=== PATIENT | female | born 1965 | race Caucasian/White ===

== ENCOUNTER → 2018-10-04 07:29 | Outpatient (CLI) | payer OTHER, SELFPAY ==
[2018-10-04 08:18] LABS: Absolute Lymphocyte Count 1.72 X10^3/ul (0.83-4.51); Absolute Neutrophil Count 3.2 X10^3/uL (2.0-7.7); Basophil# 0.09 X10^3/uL; Basophil% 1.6 % (0-1); Eosinophil# 0.23 X10^3/uL; Hematocrit 43.2 % (37-47); Hemoglobin 14.5 g/dl (12.0-15.0); Lymphocyte # 1.72 X10^3/ul (4.0); Lymphocyte % 30.3 % (19-41); Mean Corp Hgb Conc 33.6 g/gl (32-36); Mean Corpuscular Hgb 29.9 pg (27.0-32.0); Mean Corpuscular Volume 89.1 fL (81-99); Mean Platelet Vol. 9.6 fl (6.2-12.0); Monocyte# 0.43 X10^3/uL; Monocyte% 7.6 % (0-10); Neutrophil # 3.19 X10^3/uL (2.7-7.7); Neutrophil % 56.1 % (47-70); Platelet Count 330 K/mm3 (150-450); RBC Distribution Width CV 13.1 % (11.6-14.6); Red Blood Count 4.85 M/mm3 (4.2-5.4); White Blood Count 5.7 K/mm3 (4.4-11.0)
[2018-10-04 08:19] LABS: POSITIVE COUNT NO; POSITIVE DIFFERENTIAL NO; POSITIVE MORPHOLOGY NO
[2018-10-04 08:48] LABS: ALB/GLOB Ratio 0.9 RATIO (0.9-2.4); AST(SGOT) 28 U/L (15-37); Alanine Aminotransfer ALT/SGPT 54 U/L (13-56); Albumin, Serum 3.6 g/dL (3.2-5.0); Alkaline Phosphatase 143 U/L (45-117); Anion Gap 9 (5-15); BUN 15 mg/dL (7-18); BUN/Creat Ratio 19.4 RATIO (10-20); Calcium,Total 9.1 mg/dL (8.5-10.1); Chloride 106 mmol/L (98-107); Cholesterol 258 mg/dL (200); Creatinine, Serum 0.77 mg/dL (0.55-1.02); EST Glomerular Filtration Rate 84 mL/min (>60); Est Glom Filt Rate - Afr Amer 101 mL/min (>60); Globulin 4.1 g/dL (2.2-4.2); Glucose 85 mg/dL (74-106); High Density Lipoprotein 64 mg/dL; Potassium 4.1 mmol/L (3.5-5.1); Protein, Total 7.7 g/dL (6.4-8.2); Sodium Level 140 mmol/L (136-145); Triglycerides 98 mg/dL; Very Low Density Lipoprotein 20 mg/dL (5-40)
== END ==
PROVIDERS: Family Provider Family Medicine; PCP Family Medicine; Referring Provider Family Medicine; Visit Provider Family Medicine
DX: E78.5 Hyperlipidemia, unspecified (principal); Z51.81 Encounter for therapeutic drug level monitoring; R53.83 Other fatigue
CPT/HCPCS: 36415; 80053; 80061; 85025

== ENCOUNTER → 2018-10-16 07:34 | Outpatient (CLI) | payer OTHER, SELFPAY ==
--- NOTE | 2018-10-16 07:38 | BI_ITS ---
MAMMOGRAPHY - BILATERAL SCREENING REASON FOR EXAM: Female, 53 years old. Routine annual screening examination. PERTINENT HISTORY: Aunt with breast cancer. TECHNIQUE: Digital bilateral breast mya (3D mammographic acquisition) in the CC and MLO projections. 2-D mediolateral oblique (MLO) and craniocaudad (CC) views of both breasts were obtained. CAD: Full Field Digital Mammography with Computer Added Detection was performed. COMPARISON: Comparison is made with prior study dated August 25, 2016 and June 29, 2015. FINDINGS: Breast Composition: The breasts are heterogeneously dense, which may obscure small masses. There are no dominant masses or suspicious calcifications. No other significant abnormalities are identified. There has been no significant change since the prior study. BI/SCREENING MAMM (CAD), BILAT IMPRESSION: Stable bilateral screening mammogram. Yearly follow-up mammogram recommended. (A) ASSESSMENT CATEGORY: BIRADS Category 1: Negative. A letter regarding these results will be sent to the patient by the facility within 30 days. Approximately 10% of breast cancers are not detected by mammography. A normal mammogram should not delay biopsy of a clinically suspicious abnormality. [id number] Electronically Signed: Hany Kaur MD at 8:52 EST Tel [phone], Service support ,
--- OUTSIDE RECORDS SUMMARY | 2019-01-17 12:33 | XMS RPT_ITS ---
:1965 Author Organization [facility] Care Team Providers Name Role Phone Patsy Dinh Attending Unavailable Malys, Patsy Primary Care Unavailable Malys, Patsy Attending Unavailable Malys, Patsy Referring Unavailable Malys, Patsy Primary Care Unavailable PROBLEMS PROBLEMS DATE TYPE CONDITION / CODE ATTENDING STATUS SOURCE 10/04/2018 Unknown E78.5 - Malys, Patsy Active [facility] unspecified / Hospital E78.5(ICD-10) Repository 10/04/2018 Unknown Z51.81 - Malys, Patsy Active [facility] Encounter for Community therapeutic drug Hospital level monitoring Repository / Z51.81(ICD-10) 10/04/2018 Unknown R53.83 - Other Malys, Patsy Active [facility] R53.83(ICD-10) Hospital Repository PROCEDURES PROCEDURES No Procedure Records FoundRESULTS RESULTS SCREENING MAMM (CAD), Observed: 10/16/2018 Status: F Source: L[facility] BILAT 7:38 AM [facility] REPOSITORY [facility] Imaging Services [address] [place] [address] SCREENING MAMM (CAD), BILAT MR#: [id number] Acct: [id number] Name: MEKA CAMPOS Rep #: [id number] : 1965 F 53 From: Hany Kaur MD PCP: Patsy Dinh DO Status: REG CLI Study: SCREENING MAMM (CAD), BILAT Date of Exam: 10/16/18 Exam# [id number] Ordering Dr: Patsy Dinh DO MAMMOGRAPHY - BILATERAL SCREENING REASON FOR EXAM: Female, 53 years old. Routine annual screening examination. PERTINENT HISTORY: Aunt with breast cancer. TECHNIQUE: Digital bilateral breast mya (3D mammographic acquisition) in the CC and MLO projections. 2-D mediolateral oblique (MLO) and craniocaudad (CC) views of both breasts were obtained. CAD: Full Field Digital Mammography with Computer Added Detection was performed. COMPARISON: Comparison is made with prior study dated August 25, 2016 and June 29, 2015. FINDINGS: Breast Composition: The breasts are heterogeneously dense, which may obscure small masses. There are no dominant masses or suspicious calcifications. No other significant abnormalities are identified. There has been no significant change since the prior study. BI/SCREENING MAMM (CAD), BILAT IMPRESSION: Stable bilateral screening mammogram. Yearly follow-up mammogram recommended. (A) ASSESSMENT CATEGORY: BIRADS Category 1: Negative. A letter regarding these results will be sent to the patient by the facility within 30 days. Approximately 10% of breast cancers are not detected by mammography. A normal mammogram should not delay biopsy of a clinically suspicious abnormality. [id number] Electronically Signed: Hany Kaur MD at 8:52 EST Tel [phone], Service support , CC: Patsy Dinh DO New Accounts Clerk: Signed CBC W/DIFF, AUTOMATED Collected: 10/04/2018 Status: F Source: LINK 7:33 AM [facility] REPOSITORY TYPE CODE TESTS RESULT OUT OF RANGE REFERENCE UNITS LAB L100.1000 4.4-11.0 K/mm3 Normal WBC 5.7 LAB L100.1200 4.2-5.4 M/mm3 Normal RBC 4.85 LAB L100.1300 12.0-15.0 g/dl Normal HGB 14.5 LAB L100.1400 37-47 % Normal HCT 43.2 LAB L100.1500 81-99 fL Normal MCV 89.1 LAB L100.1600 27.0-32.0 pg Normal MCH 29.9 LAB L100.1700 32-36 g/gl Normal MCHC 33.6 LAB L100.1810 11.6-14.6 % Normal RDW CV 13.1 LAB L100.1820 35.1-43.9 fl Normal RDW SD 43.0 LAB L100.1900 150-450 K/mm3 Normal PLT 330 LAB L100.2000 6.2-12.0 fl Normal MPV 9.6 LAB L100.2100 47-70 % Normal NEUT% 56.1 LAB L100.2200 19-41 % Normal LY% 30.3 LAB L100.2300 0-10 % Normal MONO% 7.6 LAB L100.2400 0-5 % Normal EO% 4.0 LAB L100.2500 0-1 % High BASO% 1.6 LAB L100.2550 0.0-0.9 % Normal IM GRAN % 0.400 Result Comment: IG% - Immature Granulocytes (promyelocytes, myelocytes and metamyelocytes) > 1% indicates that a LEFT SHIFT is Present. LAB L100.2620 2.0-7.7 X10 3/uL Normal Absolute Neut 3.2 LAB L100.2720 0.83-4.51 X10 3/ul Normal Absolute Lymph 1.72 Performed By: #### L100.0100 #### [facility] [address] [place], [place], [address] COMPREHENSIVE METABOLIC Collected: 10/04/2018 Status: F Source: [facility] 7:33 AM [facility] REPOSITORY TYPE CODE TESTS RESULT OUT OF RANGE REFERENCE UNITS LAB L501.0100 74-106 mg/dL Normal GLU 85 Result Comment: Please note revised GLUCOSE reference range effective 2017. LAB L501.1000 7-18 mg/dL Normal BUN 15 LAB L501.1100 0.55-1.02 mg/dL Normal CREAT,SERUM 0.77 Result Comment: The validity of the calculated GFR AND GFRAA in patients over 70 years has not been determined. Clinical correlation is essential. LAB L501.1110 >60 mL/min Normal EST GFR 84 Result Comment: Non- GFR Calc LAB L501.1115 >60 mL/min Normal EST GFR - AA 101 Result Comment: GFR Calc LAB L501.1300 10-20 RATIO Normal BUN/CRE 19.4 LAB L501.1500 6.4-8.2 g/dL T Normal PROT 7.7 LAB L501.1800 3.2-5.0 g/dL Normal ALB 3.6 LAB L501.1950 2.2-4.2 g/dL Normal GLOB 4.1 LAB L501.2000 0.9-2.4 RATIO Normal A/G 0.9 LAB L501.2200 8.5-10.1 mg/dL CA Normal 9.1 LAB L501.4100 15-37 U/L Normal AST 28 LAB L501.4305 45-117 U/L High ALK P 143 LAB L501.4405 13-56 U/L Normal ALT 54 LAB L501.4600 0.20-1.00 mg/dL T Normal BILI 0.40 LAB L501.5300 136-145 mmol/L NA Normal 140 LAB L501.5600 3.5-5.1 mmol/L K Normal 4.1 LAB L501.5900 98-107 mmol/L CL Normal 106 LAB L501.6100 21.0-32.0 mmol/L Normal CO2 25.0 LAB L501.6200 5-15 Normal GAP 9 Performed By: #### L500.4050, L500.4100 #### [facility] [address] [place], [place], [address] LIPID PROFILE Collected: 10/04/2018 Status: F Source: [place] 7:33 AM [facility] REPOSITORY TYPE CODE TESTS RESULT OUT OF RANGE REFERENCE UNITS LAB L501.4900 200 mg/dL High CHOL 258 Result Comment: <200 mg/dL Desirable 200-240 mg/dL Borderline >240 mg/dL High Risk LAB L501.5000 mg/dL Normal TRIG 98 Result Comment: The drugs N-Acetylcysteine and Metamizole may falsely depress this assay. Serum Triglycerides Reference Interval Normal <150 mg/dL Borderline high 150 - 199 mg/dL High 200 - 499 mg/dL Very High > or = 500 mg/dL LAB L501.6400 mg/dL Normal HDL 64 Result Comment: The drugs N-Acetylcysteine and Metamizole may falsely depress this assay. Reference Range HDL <40 mg/dL Low HDL Cholesterol HDL >or= 60 mg/dL High HDL Cholesterol LAB L501.6500 0-130 mg/dL High LDL 174 LAB L501.6600 5-40 mg/dL Normal VLDL 20 Performed By: #### L500.4050, L500.4100 #### [facility] [address] [place], [address] ALLERGIES ALLERGIES No Allergies Records FoundENCOUNTERS ENCOUNTERS ADMIT/DISCHARGE ACCOUNT ADMITTING ENCOUNTER LOCATION SOURCE NUMBER CLASS 10/16/2018 [id number] [facility] 8 [facility] ing:OPBI Repository 10/04/2018 [id number] [facility] 0 [facility] ing:LAB Repository PAYERS PAYERS ENCOUNTER GUARANTOR PAYER SUBSCRIBER SOURCE 10/16/2018 MEKA Inman Primary Insurance:[facility] MEKA Inman Link [id number] [facility] [address] [id number] [address]Tcg: Number: Repository [id number] (HP) Date:3716-08-10[address] [address], [place] [address]QF: CHECK WEBSITE 10/16/2018 [facility]:SELF PAY [facility] Number: Effective Repository Date:2018-10-04 10/04/2018 MEKA Inman Primary Insurance:[facility] MEKA Inman Link [id number] [facility]: [address] [id number] [address]Cti: Number: Repository [id number] (HP) Date:[id number] [address], [place] [address]YQ: CHECK WEBSITE 10/04/2018 Secondary NOT GIVENUNK Link Insurance:SELF PAY [facility] Number: Effective Repository Date:2018-10-04
== END ==
PROVIDERS: Family Provider Family Medicine; PCP Family Medicine; Visit Provider Family Medicine
DX: Z12.31 Encounter for screening mammogram for malignant neoplasm of breast (principal)
CPT/HCPCS: 77063; 77067

== ENCOUNTER → 2022-07-08 | Outpatient (CLI) | payer OTHER, SELFPAY ==
[2022-07-08 10:40] LABS: Hematocrit 44.2 % (37-47); Hemoglobin 14.4 g/dL (12.0-15.0); Mean Corp Hgb Conc 32.6 g/dL (32-36); Mean Corpuscular Hgb 29.3 pg (27.0-32.0); Mean Platelet Vol. 9.4 fl (6.2-12.0); Platelet Count 335 K/mm3 (150-450); RBC Distribution Width CV 13.1 % (11.6-14.6); RBC Distribution Width SD 43.2 fl (35.1-43.9); Red Blood Count 4.91 M/mm3 (4.2-5.4); White Blood Count 5.5 K/mm3 (4.4-11.0)
[2022-07-08 11:02] LABS: ALB/GLOB Ratio 0.8 RATIO (0.9-2.4); AST(SGOT) 24 U/L (15-37); Alanine Aminotransfer ALT/SGPT 43 U/L (13-56); Albumin, Serum 3.7 g/dL (3.2-5.0); Alkaline Phosphatase 147 U/L (45-117); Anion Gap 9 (5-15); BUN 23 mg/dL (7-18); BUN/Creat Ratio 25.2 RATIO (10-20); Calcium,Total 9.7 mg/dL (8.5-10.1); Chloride 106 mmol/L (98-107); Creatinine, Serum 0.91 mg/dL (0.55-1.02); EST Glomerular Filtration Rate 68 mL/min (>60); Est Glom Filt Rate - Afr Amer 82 mL/min (>60); GGTP 149 U/L (5-55); Globulin 4.6 g/dL (2.2-4.2); Glucose 93 mg/dL (74-106); Potassium 4.2 mmol/L (3.5-5.1); Protein, Total 8.3 g/dL (6.4-8.2); Sodium Level 140 mmol/L (136-145)
== END | disposition home or self-care (01) ==
LOC: MTLAB 08:25
PROVIDERS: PCP Family Medicine; Referring Provider Family Medicine; Visit Provider Family Medicine
DX: M85.80 Other specified disorders of bone density and structure, unspecified site (principal); E78.5 Hyperlipidemia, unspecified; Z78.0 Asymptomatic menopausal state
CPT/HCPCS: 36415; 80053; 82977; 85027

== ENCOUNTER → 2022-08-18 | Outpatient (CLI) | payer OTHER, SELFPAY ==
--- NOTE | 2022-08-18 07:50 | CT_ITS ---
STUDY: CT ABDOMEN WITH CONTRAST REASON FOR EXAM: Female, 57 years old. Elevated LFTs RADIATION DOSAGE (If Supplied By Facility): CTDIvol = ( 13.97 ) mGy, DLP = ( 615.3 ) mGycm TECHNIQUE: Transaxial images were obtained post I.V. administration of Oral and amp; IV Readi-CAT and amp; 100mL Isovue-370, and with oral contrast. Sagittal and coronal images were reconstructed. Individualized dose optimization techniques were used for this CT. COMPARISON: None. FINDINGS: The visualized lung bases are unremarkable. The visualized portions of the heart are within normal limits. Liver is unremarkable aside from a simple 1 cm cyst in the right lobe. Normal gallbladder and extrahepatic biliary system. Normal spleen. Normal pancreas. Normal bilateral adrenal glands. Normal right kidney. Normal left kidney. Normal visualized stomach. Normal small intestine. Normal colon. The appendix is visualized and appears normal. Appendix seen on axial images 72 through 76 Normal abdominal aorta. Normal inferior vena cava. Normal retroperitoneum. Normal abdominal wall. Degenerative changes noted at L5/S1. CT/Abdomen WITH IV Contrast IMPRESSION: No suspicious solid organ abnormality, simple 1 cm hepatic cyst, no specific follow-up needed. No free intraperitoneal fluid, air, or suspicious adenopathy, normal appendix visualized Electronically Signed: Kurtis Baugh MD at 8:41 EDT ,
== END | disposition home or self-care (01) ==
LOC: CT 07:49
PROVIDERS: PCP Internal Medicine; Referring Provider Internal Medicine; Visit Provider Internal Medicine
DX: R74.8 Abnormal levels of other serum enzymes (principal)
CPT/HCPCS: 74160; Q9967

== ENCOUNTER → 2023-06-22 | Outpatient (CLI) | payer OTHER, SELFPAY ==
--- NOTE | 2023-06-22 12:25 | BI_ITS ---
MAMMOGRAPHY - BILATERAL SCREENING REASON FOR EXAM: Female, 57 years old. Routine annual screening examination. PERTINENT HISTORY: Aunts with breast cancer. No reported personal history of breast cancer. TECHNIQUE: Digital bilateral breast castillo (3D mammographic acquisition) in the CC and MLO projections. 2-D mediolateral oblique (MLO) and craniocaudad (CC) views of both breasts were obtained. CAD: Full Field Digital Mammography with Computer Added Detection was performed. COMPARISON: Screening mammogram from outside hospital from 11/26/2021, 11/25/2020. FINDINGS: Breast Composition: The breasts are heterogeneously dense, which may obscure small masses. There are no dominant masses or suspicious calcifications. No other significant abnormalities are identified. There has been no significant change since the prior study. BI/SCRN MAMM (CAD)W/CASTILLO BILAT IMPRESSION: Stable bilateral screening mammogram. Yearly follow-up mammogram recommended. (A) ASSESSMENT CATEGORY: BIRADS Category 1: Negative. A letter regarding these results will be sent to the patient by the facility within 30 days. Approximately 10% of breast cancers are not detected by mammography. A normal mammogram should not delay biopsy of a clinically suspicious abnormality. Electronically Signed: Aftab Harris DO at 15:52 EDT ,
== END | disposition home or self-care (01) ==
LOC: OPBI 12:23
PROVIDERS: PCP Internal Medicine; Referring Provider Internal Medicine; Visit Provider Internal Medicine
DX: Z12.31 Encounter for screening mammogram for malignant neoplasm of breast (principal)
CPT/HCPCS: 77063; 77067

== ENCOUNTER → 2023-07-31 | Outpatient (CLI) | payer OTHER, SELFPAY ==
--- NOTE | 2023-07-31 10:21 | RAD_ITS ---
STUDY: X-RAY - RIGHT KNEE REASON FOR EXAM: Female, 57 years old. Right knee pain and swelling. No known injury. TECHNIQUE: 4 view(s) of the knee. COMPARISON: None. FINDINGS: Normal visualized distal femur. Normal visualized proximal tibia and fibula. Normal proximal tibiofibular articulation. Normal medial femorotibial compartment. Normal lateral femorotibial compartment. Normal patellofemoral articulation. The soft tissue structures are unremarkable. RAD/Knee 4 or More Views IMPRESSION: Normal x-ray examination of the knee. Electronically Signed: Hany Kaur MD at 11:11 EDT ,
== END | disposition home or self-care (01) ==
LOC: MTRAD 10:20
PROVIDERS: PCP Internal Medicine; Referring Provider Physician Assistant; Visit Provider Physician Assistant
DX: M25.561 Pain in right knee (principal)
CPT/HCPCS: 73564

== ENCOUNTER → 2023-08-07 | Outpatient (CLI) | payer OTHER, SELFPAY ==
--- NOTE | 2023-08-07 10:49 | VDLE_ITS ---
Reason For Study: LEG SWELLING RIGHT LEFT GSV is normal. CFV is compressible, spontaneous, phasic, CFV is compressible, spontaneous, phasic, competent, and demonstrates normal competent and demonstrates normal augmentation. augmentation. FV is compressible, spontaneous, phasic, competent and demonstrates normal augmentation. POP V is compressible, spontaneous, phasic, competent and demonstrates normal augmentation. T/P Trunk is compressible. PTV is compressible. RT PerV is compressible. Procedure This is a venous duplex using B-mode, color flow and spectral Doppler. Exam performed in department. The exam was diagnostic. A preliminary report was called and/or faxed to Dr. Vargas's office. VL/Venous Duplex US, Unilateral Interpretation Summary Deep veins of the right lower extremity are patent and compressible segmentally . There is no evidence of right lower extremity deep vein thrombosis. The right great sapheno us vein appears patent and compressible segmentally. Ordering Physician: Berta Vargas Referring Physician: Berta Vargas Performed By: Derian Sawant, LELE
== END | disposition home or self-care (01) ==
LOC: CVS 10:45
PROVIDERS: PCP Internal Medicine; Referring Provider Internal Medicine; Visit Provider Internal Medicine
DX: M79.89 Other specified soft tissue disorders (principal)
CPT/HCPCS: 93971

== ENCOUNTER 2023-09-07 16:00 | Outpatient (RCR) | payer OTHER, SELFPAY ==
--- NOTE | 2023-08-14 13:01 | HP.PTEVAL ---
Patient's Visit Information Visit Information Visit Information: MEKA CAMPOS is a 57 year old F referred to Physical Therapy by Dr. Berta Vargas MD with a diagnosis of R Knee Pain. Date of Evaluation: 08/14/23 Physical Therapist: Hany Mcdonough, PT, ATC Visit Plan Frequency: 2-3x /Week Duration: 2-4 Weeks Plan: Nu-Step, LE Strengthening, LE Stretching, core-strengthening, [employer] edu., HEP Subjective Subjective: Pt. states that the swelling she has distal to the R knee (which stops mid R LE) started when she felt pulling in back of knee that started in June. The more she walks the worse it becomes. Pt. reports that her R knee cap hurts even worse when she ascends stairs. Pain is not keeping the pt. up at night; pain is really only bad when she ascends stairs or walks long distances. Pt. states that there is pain when she touches the medial and lateral joint line of her R knee. Pt. reports that X-rays have been taken and findings are non-finding; waiting on therapy first and then taking an MRI after. Pt. reports that an U/S has been conducted in order to rule out DVT/blood clot. Current sitting pain level is a 0-1/10, when walking/jogging/uneven ground the pain will rise to a 5/10. Pt. states that the pain is at it's worst when she extends her R knee; this is when she feels the pull in the back of her knee. There is no pain whenever she flexes her R knee. Pt. feels that this is altering her gait during ambulation. Pt. states her bedroom and bathroom is on man level of her home but her daughters bedroom is upstairs so she does have to navigate these. Pain Right Knee: Pain Intensity (Out of 10): 1 Pain Intensity Range: 5 Objective Objective: LEFS: 31/80 (61.25% disabled) Neuro: All B LE sensation in tact to light touch; R Achilles 2/3 Palpation: Pain felt in medial and lateral R knee joint line and popliteal area; Crepitus felt when ex/flex R knee ROM: - L Knee: 0 - 130 - R Knee: 0 - 5 - 120 (with pain in end range of both flex. and ext.) MMT: -L Knee Flex: 42 #F; Ext: 73 #F; -R Knee Flex: 40 #F; Ext: 44 #F (with pain felt in kneecap) Special Test: - R Knee Lin's test: Positive - R 90/90 Test: Positive - 40 deg lag from full extension - R Yumiko Test: Positive - - Apley Compression Test: Positive Balance/Special Test Scores Lower Extremity Functional Score: 31 Goals Goal 1:: Pt. to demonstrate an increase of 9 points on her LEFS in order to reflect a MCID in order to return to prior level of function. Goal Time Frame: 4-6 Weeks Goal 2:: Pt. to demonstrate a R knee ROM from 0 - 130 in order to be of equal ROM to her contralateral knee at time of testing in order to aid in pain free ambulation and pain free stair navigation. Goal Time Frame: 4-6 Weeks Goal 3:: Pt. to demonstrate an increase of 20 #F with R knee extension in order to be of equal strength to contralateral knee in order to return to prior level of function. Goal Time Frame: 4-6 Weeks Goal 4:: Pt. to become I with HEP to aid in independence of self care and rehabilitation outside of therapy hours to promote return to prior level of function. Goal Time Frame: 4-6 Weeks Rehabilitation Potential Physical Therapy Diagnosis: R Knee pain, swelling and weakness Rehabilitation Potential: Excellent Anticipated Interventions Patient/Client Instruction: Educate patient on: Condition and Plan of Care For the Purpose of:: To improve health and function Therapeutic Exercise to Include: Strength training, Endurance training, Body mechanics, Passive ROM and Active ROM For the Purpose of:: To decrease pain, To decrease swelling/inflammation, To increase ROM, To improve gait and locomotor functions, To improve self management and To prevent re-injury Cryotherapy (ice pack, ice massage): Yes For the Purpose of:: To decrease pain and To decrease swelling/inflammation Text: Thank you for the opportunity to evaluate your patient. For Medicare and Medicare HMO plans, please review the plan of care and approve it. It will need to be FAXED BACK to us at [phone] for Medicare purposes. For Medicare only, by signing this I certify the plan of care. Please let me know if there are questions or concerns regarding this plan of care. Physician Signature: Date:
--- NOTE | 2023-09-07 16:37 | HP.PTDCSUM_ITS ---
Discharge Summary D/C summary: It has been my pleasure to treat MEKA CAMPOS referred by Dr. Berta Vargas MD, with the diagnosis of R Knee Pain for a total of 5 visit(s). Discharge Date: Please see the following information for a summary of their discharge status. Subjective Subjective: I only have pain when I walk a lot Pain Right Knee: Pain Intensity (Out of 10): 0 Overall Improvement % Improvement: 70 Objective Objective/Function: R knee pain ranges from 0-3/10 Pt is I with HEP R knee ROM 0-2-131 degrees R knee MMT: flex= 42, ext= 61 #F Rx goals achieved Goals Goal 1:: Pt. to demonstrate an increase of 9 points on her LEFS in order to reflect a MCID in order to return to prior level of function. Goal Progress: Goal Met Goal 2:: Pt. to demonstrate a R knee ROM from 0 - 130 in order to be of equal ROM to her contralateral knee at time of testing in order to aid in pain free ambulation and pain free stair navigation. Goal Progress: Goal Met Goal 3:: Pt. to demonstrate an increase of 20 #F with R knee extension in order to be of equal strength to contralateral knee in order to return to prior level of function. Goal Progress: Goal Met Goal 4:: Pt. to become I with HEP to aid in independence of self care and rehabilitation outside of therapy hours to promote return to prior level of function. Goal Progress: Goal Met Plan Plan: [facility]charge to [facility] D/C Information d/c sentence: If there are questions or concerns regarding this patient's physical therapy, please feel free to call me at [phone]. Thank you for the referral of this patient. Sincerely, Hany Mcdonough, PT, ATC Balance/Gait/Functional tests Balance/Special Test Scores Lower Extremity Functional Score: 76 Improvement % Improvement: 70
== END 2023-09-07 19:00 | disposition home or self-care (01) ==
LOC: PT 16:00
PROVIDERS: PCP Internal Medicine; Referring Provider Internal Medicine; Visit Provider Internal Medicine
DX: M25.561 Pain in right knee (principal)
CPT/HCPCS: 97110; 97140; 97161; 97164

== ENCOUNTER → 2023-12-21 | Outpatient (CLI) | payer OTHER, SELFPAY ==
--- NOTE | 2023-12-21 07:42 | US_ITS ---
STUDY: ABDOMINAL ULTRASOUND - RIGHT UPPER QUADRANT; ELASTOGRAPHY REASON FOR VISIT: Female, 58 years old. Elevated liver function tests. TECHNIQUE: Ultrasound evaluation of the right upper quadrant was performed with real-time and static browning-scale imaging. Point quantification shear wave elastography was performed ([employer]). TECHNICAL QUALITY: Adequate. COMPARISON: None. FINDINGS: Liver: The liver measures 14 cm. There is normal echogenicity of the liver. The bile ducts are within normal limits. There is hepatic color flow. The direction of portal flow is hepatopetal. There is a 1.3 cm x 1.3 cm x 1.2 cm cyst in the right lobe of the liver. Median liver stiffness measured 3.6 kPa. Gallbladder: Normal distended gallbladder. The gallbladder wall measures 2 mm. There is a negative sonographic Barcenas''s sign. There is no pericholecystic fluid. There are no gallstones. Common Bile Duct (C.B.D.): The common bile duct measures 4 mm. Pancreas: There is normal echogenicity of the visualized pancreas. There is no demonstrated pancreatic mass or cyst. Right Kidney: Normal size of the right kidney. The right kidney measures 9.9 cm x 5.7 cm x 4.5 cm. Normal renal cortex. The right cortex measures 1.5 cm. There is no demonstrated renal mass or cyst. There is no right hydronephrosis. US/ABD Limited w/ Elastography IMPRESSION: 1. Liver stiffness measures 3.6 kPa compatible with FO (Normal) Metavir score. Electronically Signed: Hany Kaur MD at 10:36 EST ,
--- OUTSIDE RECORDS SUMMARY | 2023-12-21 07:55 | XMS RPT_ITS | CCD ---
Author Name Unknown Address [address] [place] [address] Organization [facility] Care Team Providers Care Honey Blender Name Role Phone Ravi Dey Unavailable Unavailable Stencel, Ravi Unavailable Unavailable Stencel, Ravi Unavailable Unavailable RobertoSolo Unavailable Unavailable WildervilleSolo Unavailable Unavailable Stencel, Ravi Hussein Unavailable Unavailable Unavailable Unavailable Unavailable Ravi Dey Unavailable Scar Dixon Unavailable Unavailable WildervilleLindatt Unavailable Dione Avendaño Unavailable Unavailable Scar Apodaca Unavailable [phone] [place], Dr. Scar Myles Primary Care Floyd ilgabino Vale, Ms. Diana Myles Attending Unavaila ble Roberto, Dr. Solo Newman Referring Unavailabl e Wilder[place], Dr. Solo Newman Attending Unavailabl e Stencel, Ravi Cheung Primary Care Unavailab le Stencel, Ravi Cheung Primary Care Unavailab le Stencel, Ravi Cheung Referring Unavailab le Stencel, Ravi Cheung Attending Unavailab le Bitner, Mr. Ravi Espinal Attending Unavaila ble Stencel, Ravi Cheung Primary Care Unavailab le Stencel, Ravi Cheung Primary Care Unavailab Dione Pablo Attending Unavailable Stencel, Ravi Cheung Primary Care Unavailab le ZackScar Attending Unavailab le Constanza, Dr. Scar Myles Primary Care Unava ilable Akanksha, Ms. Diana Myles Attending Unavaila ble Constanza, Dr. Scar Myles Referring Unava ilable Constanza, Dr. Scar Myles Primary Care Unava ilable Constanza, Dr. Scar Myles Referring Unava ilable Obleora, Dr. Scar Myles Attending Unava ilable Obleora, Dr. Scar Myles Attending Unava ilable Obleora, Dr. Scar Myles Primary Care Unava ilable Constanza, Dr. Scar Myles Referring Unava ilable KHANG BAJWA Attending Unavailable SCAR APODACA Primary Care Unavailable Ravi eDy MD Primary Care Provider RAVI DEY Primary Care Unavailable Berta Vargas MD Unavailable Dr. Apolinar Brewer Unavailable Sadie Ayala Unavailable [phone] Sadie Mcmahon MD Unavailable Stan Rush MD Unavailable Abbey Flores CMA Unavailable Unavailable Peggy Lopes MA Unavailable Unavailable Unavailable Unavailable Allergies Allergy Classification Reported Allergen(s) Allergy Type Date of Onset Reaction(s) Facility (19 sources) Sulfamethoxazole / Trimethoprim; Translations: [Bactrim] Drug [place] [place]: (20 sources) Sulfonamides (Antibiotic); Translations: [Sulfa Drugs] drug allergy Hives [facility] [place] Work Phone: Medications Current Medications Medication Drug Class(es) Dates Sig (Normalized) Sig (Original) ciprofloxacin 500 mg oral tablet (9 sources) Quinolone Antimicrobial Start: 04-25-2022 End: 04-29-2022 take 1 tablet by mouth twice daily Cipro 500 mg oral tablet ; 1 tab(s) orally 2 times a day Quantity: 10 Refills: 0 Ordered: 25-Apr-2022 Dione Avendaño Start: 25-Apr-2022 End: 29-Apr-2022 Generic Substitution Allowed Comments: Avoid prolonged or excessive exposure to direct and/or artificial sunlight while taking this medication.Check with your doctor before becoming .Do not take dairy products, antacids, or iron preparations within one hour of this medication.Finish all this medication unless otherwise directed by prescriber.Medicat ion should be taken with plenty of water. Completed/Discontinued Medications Medication Drug Class(es) Dates Sig (Normalized) Sig (Original) [id number] 200 actuat albuterol 0.09 mg/actuat metered dose inhaler (8 sources) beta2-Adrenergic Agonist Start: 05-28-2014 End: 08-08-2023 ProAir HFA 90 mcg/actuation inhalation HFA Aerosol with Adapter 2 (two) Aerosol Soln Aerosol Soln puffs 15 minutes prior to exercise for 0 days Quantity: 1 {Unspecified} Refills: 2 Ordered: 08-Aug-2023 Abbey Flores CMA Start : 28-May-2014 End : 08-Aug-2023 Inactive amoxicillin 875 mg / clavulanate 125 mg oral tablet (8 sources) Penicillin-class Antibacterial Start: 03-05-2014 End: 03-19-2014 take 1 tablet by mouth twice daily AUGMENTIN, 875-125MG (Oral Tablet) 1 (one) Tablet Tablet bid for 14 days Quantity: 28 {Tablet} Refills: 0 Ordered: 05-Mar-2014 Sethfranky Jenny Start : 05-Mar-2014 End : 19-Mar-2014 Inactive One Daily For Women TABS (2 sources) Vitamin C One Daily For Women TABS Refills: 0 DO Active azithromycin 250 mg oral tablet (8 sources) Macrolide Antimicrobial Start: 03-06-2014 End: 03-20-2014 ZITHROMAX Z-ALEJANDRA, 250MG (Oral Tablet) 1 Tablet Tablet TAD for 0 days Quantity: 1 {Package(s)} Refills: 0 Ordered: 20-Mar-2014 DOC Cardona LPN Start : 06-Mar-2014 End : 20-Mar-2014 Inactive breath-actuated 120 actuat beclomethasone dipropionate 0.04 mg/actuat metered dose inhaler (8 sources) Corticosteroid Start: 05-28-2014 End: 08-08-2023 Qvar RediHaler 40 mcg/actuation inhalation HFA Aerosol, Breath Activated 2 (two) Aerosol Soln Aerosol Soln puffs qam for 0 days Quantity: 3 {Unspecified} Refills: 0 Ordered: 08-Aug-2023 Abbey Flores CMA Start : 28-May-2014 End : 08-Aug-2023 Inactive Problems Active Problems Problem Classification Problem Date Documented Da te Episodic/Chronic Abdominal pain (20 sources) Lower abdominal pain, unspecified; Translations: [Right flank pain] Onset: 10-01-2021 Resolved: 03-20-2014 06-24-2014 Episodic Past or Other Problems Problem Classification Problem Date Documented Date Episodic/Chronic Other connective tissue disease (1 source) Pain in right thigh; Translations: [Pain in right thigh] Onset: 01-04-2022 Episodic Other skin disorders (1 source) Rash and other nonspecific skin eruption; Translations: [Rash and other nonspecific skin eruption] Onset: 01-04-2022 Episodic Unclassified (15 sources) Patient encounter status; Translations: [Screening for breast cancer] Unclassified (2 sources) History of clinical finding in subject; Translations: [History of menopause] Unclassified (2 sources) Cancer cervix screening status; Translations: [Screening for cervical cancer] Unclassified (1 source) Female genitalia finding; Translations: [Abnormal gynecological examination] Unclassified (8 sources) Deliveries (Parity); Translations: [Deliveries (Parity)] 06-24-2014 Results Test Name Value Interpretation Reference Range Facil ity Vital Signs Date Time Vital Sign Value Performing Clinician Facility 08-08-2023 09:56-0400 Body height 170.18 cm Abbey Flores CMA [facility] Work Phone: 08-08-2023 09:56-0400 Body mass index (BMI) [Ratio] 32.51 kg/m2 Abbey Flores DIAGNOSTIC MEDICAL SONOGRAPHER [facility] Work Phone: 08-08-2023 09:56-0400 Body surface area Derived from formula 2.05 m2 Abbey Flores [facility] Work Phone: 08-08-2023 09:56-0400 Body temperature 98.5 [degF] Abbey Flores CMA Comprehensi ve [facility]; [facility] Work Phone: Encounters Encounter Date Encounter Type Care Provider Facility Start: 08-08-2023 End: 08-08-2023 Office outpatient visit 15 minutes Berta Vargas MD Work Phone: [facility] Start: 08-07-2023 End: 08-07-2023 Annotation/Addendum Berta Vargas MD Work Phone: [facility] Start: 08-03-2023 End: 08-04-2023 ambulatory RAVI DEY Facility:[facility] Start: 08-03-2023 End: 08-03-2023 Patient encounter procedure [facility] Procedures Date Procedure Procedure Detail Performing Clinician Start: 08-07-2023 End: 08-08-2023 Venous Duplex US, Unilateral Procedure Note: See Note; NOTES: [facility] [address] [place] [address] Venous Duplex US, Unilateral 08/07/23 1108 MR#: [id number] Acct: [id number] Name: MEKA CAMPOS Rep #: [id number] : [id number] 57 From: Audie Alvarado MD Attending Dr: Dr. Berta Vargas MD Status: REG CLI Ordering Dr: Berta Vargas MD Date: 08/07/23 Location: [facility] Sex: F C Admitted: Reason For Study: LEG SWELLING RIGHT LEFT GSV is normal. CFV is compressible, spontaneous, phasic, CFV is compressible, spontaneous, phasic, competent, and demonstrates normal competent and demonstrates normal augmentation. augmentation. FV is compressible, spontaneous, phasic, competent and demonstrates normal augmentation. POP V is compressible, spontaneous, phasic, competent and demonstrates normal augmentation. T/P Trunk is compressible. PTV is compressible. RT PerV is compressible. Procedure This is a venous duplex using B-mode, color flow and spectral Doppler. Exam performed in department. The exam was diagnostic. A preliminary report was called and/or faxed to Dr. Vargas's office. VL/Venous Duplex US, Unilateral Interpretation Summary Deep veins of the right lower extremity are patent and compressible segmentally. There is no evidence of right lower extremity deep vein thrombosis. The right great saphenous vein appears patent and compressible segmentally. ___ Ordering Physician: Berta Vargas Referring Physician: Berta Vargas Performed By: Derian Sawant, RVT 08/08/23 1150 Date Audie Alvarado MD CC: Dr. Berta Vargas MD; Dr. Scar Apodaca DO Date Dictated: 08/07/23 1108 Date Transcribed: 08/08/23 115 Die Polisher: Signed Berta Vargas MD Work Phone: Start: 08-03-2023 INFLUENZA VACCINE, AGE 6 MO - 64 YR, QUADRIVALENT (AFLURIA, FLULAVAL, FLUZONE) Raj Reed MD Work Phone: Start: 08-01-2023 Lipid 1996 panel - Serum or Plasma Nurse Manuela Start: 12-14-2020 Microscopic observation [Identifier] in Cervix by Cyto stain.thin prep Ravi Baeraris Start: 06-24-2014 End: 06-24-2014 Spmtry w/vc expiratory federico w/wo mxml vol vntj _ Berta Vargas MD Work Phone: Plan of Treatment Date Care Activity Detail Author Start: 08-01-2028 Lipid 1996 panel - Serum or Plasma Lipid Screening [facility] Start: 12-16-2022 [facility] Start: 11-29-2022 FUV, Provider: Scar Apodaca, Status: Pen, Time: 3:40 PM FUV, Provider: Scar Apodaca, Status: Pen, Time: 3:40 PM [facility] Work Phone: Start: 11-28-2022 Patient encounter procedure Outpatient [facility] Diagnostic [address] [address] Start: 28-Nov-2022 15:20 Solo Mejia Intent [facility] Start: 11-25-2022 EPV, Provider: Ravi Dey, Status: Pen, Time: 8:20 AM EPV, Provider: Ravi Dey, Status: Pen, Time: 8:20 AM [address] [address] [place] Work Phone: Start: 11-25-2022 Patient encounter procedure Outpatient [facility] Start: 25-Nov-2022 8:20 Ravi Dey Intent [facility] Start: 10-30-2022 Depression Assessment Depression Assessment [facility] Start: 08-11-2022 NPV, Provider: Diana Vale, Status: Pen, Time: 8:30 AM NPV, Provider: Diana Vale, Status: Pen, Time: 8:30 AM [facility] Work Phone: Start: 04-05-2022 Covid-19 Vaccine (5 - Moderna series) Covid-19 Vaccine (5 - Moderna series) [facility] Start: 12-15-2021 Patient encounter procedure ANNUAL, Provider: Solo Mejia, Status: Pen, Time: 9:30 AM [facility] Work Phone: Start: 2017 Shingrix Vaccine (1 of 2) Shingrix Vaccine (1 of 2) [facility] Start: 06-24-2014 Procedure Education Eprescribed prescriptions (G8553) [facility] Work Phone: Start: 06-02-2014 Culture bacterial quanttative colony count urine URINE DAVIS CULTURE-CHONG COL COUNT (71027) [facility] Work Phone: Start: 05-28-2014 Procedure Education Eprescribed prescriptions (G8553) [facility]; [facility] Work Phone: Start: 05-28-2014 Assay of troponin quantitative ASSAY, TROPONIN, QUANTITATIVE (aka Troponin I) ([id number]) [facility]; [facility] Work Phone: Immunizations Immunization Date Immunization Notes Care Provider Fa yojana 08-03-2023 influenza, injectabl e, quadrivalent, contains preservative Nurse [facility] Work Phone: 07-29-2022 Influenza, injectabl e, [place]in [place] Canine Kidney, preservative free, quadrivalent Scar Apodaca Work Phone: [facility] Work Phone: 02-08-2022 Comirnaty 30 MCG/0.3 ML Intramuscular Suspension Scar Apodaca Work Phone: [facility] Work Phone: 09-17-2021 Pfizer-BioNTech COVID-19 Vacc 30 MCG/0.3ML Intramuscular Suspension Ravi D Stencel Work Phone: [place] [address] [employer] Work Phone: 07-29-2021 influenza, injectabl e, quadrivalent, contains preservative Ravi D Stencel Work Phone: [facility] 12-02-2020 Moderna COVID-19 Vaccine 100 MCG/0.5ML Intramuscular Suspension Ravi D Stencel Work Phone: [place] [address] [employer] Work Phone: 11-04-2020 Moderna COVID-19 Vaccine 100 MCG/0.5ML Intramuscular Suspension Ravi D Stencel Work Phone: [address] Work Phone: 07-31-2020 influenza, injectabl e, quadrivalent, contains preservative Nurse [facility] Work Phone: 07-31-2020 influenza, seasonal, injectable Ravi D Stencel Work Phone: [address] Work Phone: Payers Date Payer Category Payer Private Health Insurance ABEL Franky [facility] [id number] 2023-Present [phone] [address] [place] [id number] PPO [id number] 2022 Unknown [id number] 1965 Unknown [id number] 069 1965 Unknown [id number] 069 1965 Unknown [id number] 069 1965 Unknown [id number] 069 1965 Unknown [id number] 069 1965 Unknown [id number] 9 1965 Unknown [id number] 56 1965 Unknown [id number] 56 1965 Unknown [id number] 56 1965 Unknown [id number] 244 Unknown Unknown [id number] Unknown [id number] Social History Date Type Detail Facility Assertion Unknown if ever smoked [facility] Work Phone: Start: 10-06-2020 End: 12-09-2020 Denies alcohol consumption Denies alcohol consumption [address] Work Phone: Functional Status Date Assessment Result Facility NEGATED: Highlighted row Functional performance Functional status health issues are not documented Disease [facility] Work Phone: Mental Status Date Assessment Result Facility NEGATED: Highlighted row Cognitive function [Interpretation] Cognitive status health issues are not documented Disease -[facility] Work Phone: Clinical Notes 06-20-2022 Note Date & Type Note Facility 06-20-2022 History of Present illness Narrative Patient is here today for evaluation of her right thumb pain at the request of Dr. Apodaca. She is a 56-year-old female with a 1+ year history of right thumb pain getting worse over the past couple months with no known injury. She is very active with mountain biking but is uncertain if this is causing the pain. She rates her pain as a 3/10 located to the base of the thumb. She describes it as aching occasional catching and occasional sharp pains. She denies any use of a brace ice or topical medications. There is swelling and has noticed a deformity recently. There is also loss of function. She denies any numbness or tingling. She does occasionally take 200 mg of ibuprofen as needed for pain. [facility] [address] Work Phone: documented [facility] this encounter [facility] [id number] presents for annual exam. Patient safe at home denies abuse. Patient sexually active without concern. Patient using the estrogen cream with some benefit. Patient is a breast exams no lumps lumps masses. Patient's up-to-date on colonoscopy. Patient working on physical activity. Patient had discussion with her family over the holidays and found a lot of ovarian Cancer and would like to discuss.[address] Work Phone: History of Present illness Narrative* Patient is here today to establish care with a cc of thumb pain. * PAtient repots that it has bene bothing her for some time, she reports that it just aches, she cannot flatten her thumb out. She does not find that it gets stuck, she is left handed. * No onjury to it that she knows. no numbness. * She has had some elevated liver enzymes for the past several years * She does not drink, does not take any medications. [facility] Work Phone: History of Present illness Narrative* Patient is here today to establish care with a cc of thumb pain. * Patient repots that it has been bothering her for some time, she reports that it just aches, she cannot flatten her thumb out. She does not find that it gets stuck, she is left handed. * No injury to it that she knows. no numbness. * She has had some elevated liver enzymes for the past several years * She does not drink, does not take any medications. * She has tried over the years to lose weight and then will gain it back. [facility] Work Phone: History of Present illness Narrative* Patient is here today for annual wellness. 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 [facility] Work Phone: History of Present illness Narrative* Patient is here today for annual wellness. 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 [facility] Work Phone: Hisohqd of Present illness Narrative* Patient is here today for annual wellness. 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 [facility] Work Phone: Instructions* Name Dates Details How to access [employer] online Indication:Overweight Start:24-Jun-2014 Instruction Type:Patient Education How to access health [employer] online - Detail Indication:Overweight Start:24-Jun-2014 Instruction Type:Patient Education Patient Instructions Indication:Overweight Start:24-Jun-2014 Instruction Type:Provider Instructions for Treatment How to access [employer] online Indication:Right flank pain Start:28-May-2014 Instruction Type:Patient Education How to access health [employer] online - Detail Indication:Right flank pain Start:28-May-2014 Instruction Type:Patient Education Patient Instructions Indication:Right flank pain Start:28-May-2014 Instruction Type:Provider Instructions for Treatment Patient Instructions Indication:Tonsil asymmetry Start:10-Mar-2014 Instruction Type:Provider Instructions for Treatment Patient Instructions Indication:Mononucleosis Start:10-Mar-2014 Instruction Type:Provider Instructions for Treatment Patient Instructions Indication:Rash Start:06-Mar-2014 Instruction Type:Provider Instructions for Treatment [facility] Work Phone: Instructions* Name Dates Details How to access health informa tion online Indication:Overweight Start:24-Jun-2014 Instruction Type:Patient Education How to access health informa tion online - Detail Indication:Overweight Start:24-Jun-2014 Instruction Type:Patient Education Patient Instructions Indication:Overweight Start:24-Jun-2014 Instruction Type:Provider Instructions for Treatment How to access health informa tion online Indication:Right flank pain Start:28-May-2014 Instruction Type:Patient Education How to access health informa tion online - Detail Indication:Right flank pain Start:28-May-2014 Instruction Type:Patient Education Patient Instructions Indication:Right flank pain Start:28-May-2014 Instruction Type:Provider Instructions for Treatment Patient Instructions Indication:Tonsil asymmetry Start:10-Mar-2014 Instruction Type:Provider Instructions for Treatment Patient Instructions Indication:Mononucleosis Start:10-Mar-2014 Instruction Type:Provider Instructions for Treatment Patient Instructions Indication:Rash Start:06-Mar-2014 Instruction Type:Provider Instructions for Treatment [facility] Work Phone: Instructions* Name Dates Details How to access health informa tion online Indication:Overweight Start:24-Jun-2014 Instruction Type:Patient Education How to access health informa tion online - Detail Indication:Overweight Start:24-Jun-2014 Instruction Type:Patient Education Patient Instructions Indication:Overweight Start:24-Jun-2014 Instruction Type:Provider Instructions for Treatment How to access health informa tion online Indication:Right flank pain Start:28-May-2014 Instruction Type:Patient Education How to access health informa tion online - Detail Indication:Right flank pain Start:28-May-2014 Instruction Type:Patient Education Patient Instructions Indication:Right flank pain Start:28-May-2014 Instruction Type:Provider Instructions for Treatment Patient Instructions Indication:Tonsil asymmetry Start:10-Mar-2014 Instruction Type:Provider Instructions for Treatment Patient Instructions Indication:Mononucleosis Start:10-Mar-2014 Instruction Type:Provider Instructions for Treatment Patient Instructions Indication:Rash Start:06-Mar-2014 Instruction Type:Provider Instructions for Treatment [facility] Work Phone: Family History Mother Name Dates Details No pertinent family history( V49.89, Z78.9) Status:Active Father Name Dates Details Family history of cerebrovas cular accident (CVA)(V17.1, Z82.3) Status:Active Family history of myocardial infarction(V17.3, Z82.49) Status:Active Family history of diabetes m ellitus(V18.0, Z83.3) Status:Active Sister Name Dates Details Family history of cerebrovas cular accident (CVA)(V17.1, Z82.3) Status:Active Family history of myocardial infarction(V17.3, Z82.49) Status:Active Family history of diabetes m ellitus(V18.0, Z83.3) Status:Active Mother Name Dates Details No pertinent family history( V49.89, Z78.9) Status:Active Father Name Dates Details Family history of cerebrovas cular accident (CVA)(V17.1, Z82.3) Status:Active Family history of myocardial infarction(V17.3, Z82.49) Status:Active Family history of diabetes m ellitus(V18.0, Z83.3) Status:Active Sister Name Dates Details Family history of cerebrovas cular accident (CVA)(V17.1, Z82.3) Status:Active Family history of myocardial infarction(V17.3, Z82.49) Status:Active Family history of diabetes m ellitus(V18.0, Z83.3) Status:Active Mother Name Dates Details No pertinent family history( V49.89, Z78.9) Status:Active Father Name Dates Details Family history of cerebrovas cular accident (CVA)(V17.1, Z82.3) Status:Active Family history of myocardial infarction(V17.3, Z82.49) Status:Active Family history of diabetes m ellitus(V18.0, Z83.3) Status:Active Sister Name Dates Details Family history of cerebrovas cular accident (CVA)(V17.1, Z82.3) Status:Active Family history of myocardial infarction(V17.3, Z82.49) Status:Active Family history of diabetes m ellitus(V18.0, Z83.3) Status:Active Mother Name Dates Details No pertinent family history( V49.89, Z78.9) Status:Active Father Name Dates Details Family history of cerebrovas cular accident (CVA)(V17.1, Z82.3) Status:Active Family history of myocardial infarction(V17.3, Z82.49) Status:Active Family history of diabetes m ellitus(V18.0, Z83.3) Status:Active Sister Name Dates Details Family history of cerebrovas cular accident (CVA)(V17.1, Z82.3) Status:Active Family history of myocardial infarction(V17.3, Z82.49) Status:Active Family history of diabetes m ellitus(V18.0, Z83.3) Status:Active aunt Name Dates Details Family history of glaucoma(V 19.11, Z83.511) Status:Active aunt Name Dates Details Family history of leukemia(V 16.6, Z80.6) Status:Active uncle Name Dates Details Family history of glaucoma(V 19.11, Z83.511) Status:Active cousin Name Dates Details Family history of leukemia(V 16.6, Z80.6) Status:Active Mother Name Dates Details No pertinent family history( V49.89, Z78.9) Status:Active Father Name Dates Details Family history of cerebrovas cular accident (CVA)(V17.1, Z82.3) Status:Active Family history of myocardial infarction(V17.3, Z82.49) Status:Active Family history of diabetes m ellitus(V18.0, Z83.3) Status:Active Family history of glaucoma(V 19.11, Z83.511) Status:Active Sister Name Dates Details Family history of cerebrovas cular accident (CVA)(V17.1, Z82.3) Status:Active Family history of myocardial infarction(V17.3, Z82.49) Status:Active Family history of diabetes m ellitus(V18.0, Z83.3) Status:Active Family history of glaucoma(V 19.11, Z83.511) Status:Active aunt Name Dates Details Family history of glaucoma(V 19.11, Z83.511) Status:Active aunt Name Dates Details Family history of leukemia(V 16.6, Z80.6) Status:Active uncle Name Dates Details Family history of glaucoma(V 19.11, Z83.511) Status:Active cousin Name Dates Details Family history of leukemia(V 16.6, Z80.6) Status:Active Mother Name Dates Details No pertinent family history( V49.89, Z78.9) Status:Active Father Name Dates Details Family history of cerebrovas cular accident (CVA)(V17.1, Z82.3) Status:Active Family history of myocardial infarction(V17.3, Z82.49) Status:Active Family history of diabetes m ellitus(V18.0, Z83.3) Status:Active Family history of glaucoma(V 19.11, Z83.511) Status:Active Sister Name Dates Details Family history of cerebrovas cular accident (CVA)(V17.1, Z82.3) Status:Active Family history of myocardial infarction(V17.3, Z82.49) Status:Active Family history of diabetes m ellitus(V18.0, Z83.3) Status:Active Family history of glaucoma(V 19.11, Z83.511) Status:Active Unknown Family Member Name Dates Details No pertinent family history: Mother(V49.89, Z78.9) Status:Active Family history of cerebrovas cular accident (CVA): Sister, Father(V17.1, Z82.3) Status:Active Family history of myocardial infarction: Sister, Father(V17.3, Z82.49) Status:Active Family history of diabetes m ellitus: Father, Sister(V18.0, Z83.3) Status:Active Family history of leukemia: Cousin, Aunt(V16.6, Z80.6) Status:Active Family history of glaucoma: Father, Sister, Uncle, Maternal Aunt(V19.11, Z83.511) Status:Active Unknown Family Member Name Dates Details No pertinent family history: Mother(V49.89, Z78.9) Status:Active Family history of cerebrovas cular accident (CVA): Sister, Father(V17.1, Z82.3) Status:Active Family history of myocardial infarction: Sister, Father(V17.3, Z82.49) Status:Active Family history of diabetes m ellitus: Father, Sister(V18.0, Z83.3) Status:Active Family history of leukemia: Cousin, Aunt(V16.6, Z80.6) Status:Active Family history of glaucoma: Father, Sister, Uncle, Maternal Aunt(V19.11, Z83.511) Status:Active Unknown Family Member Name Dates Details No pertinent family history: Mother(V49.89, Z78.9) Status:Active Family history of cerebrovas cular accident (CVA): Sister, Father(V17.1, Z82.3) Status:Active Family history of myocardial infarction: Sister, Father(V17.3, Z82.49) Status:Active Family history of diabetes m ellitus: Father, Sister(V18.0, Z83.3) Status:Active Family history of leukemia: Cousin, Aunt(V16.6, Z80.6) Status:Active Family history of glaucoma: Father, Sister, Uncle, Maternal Aunt(V19.11, Z83.511) Status:Active Family history of malignant neoplasm of ovary: Maternal Cousin(V16.41, Z80.41) Comments:Cousins 30 and 40 w ith chemo/radiation per patient. Unsure if they had genetics. (different mom then othr aunt with breast ca); Status:Active Family history of malignant neoplasm of breast: Maternal Aunt(V16.3, Z80.3) Comments:>50; Status:Active Unknown Family Member Name Dates Details No pertinent family history: Mother(V49.89, Z78.9) Status:Active Family history of cerebrovas cular accident (CVA): Sister, Father(V17.1, Z82.3) Status:Active Family history of myocardial infarction: Sister, Father(V17.3, Z82.49) Status:Active Family history of diabetes m ellitus: Father, Sister(V18.0, Z83.3) Status:Active Family history of leukemia: Cousin, Aunt(V16.6, Z80.6) Status:Active Family history of glaucoma: Father, Sister, Uncle, Maternal Aunt(V19.11, Z83.511) Status:Active Family history of malignant neoplasm of ovary: Maternal Cousin(V16.41, Z80.41) Comments:Cousins 30 and 40 w ith chemo/radiation per patient. Unsure if they had genetics. (different mom then othr aunt with breast ca); Status:Active Family history of malignant neoplasm of breast: Maternal Aunt(V16.3, Z80.3) Comments:>50; Status:Active Unknown Family Member Name Dates Details No pertinent family history: Mother(V49.89, Z78.9) Status:Active Family history of cerebrovas cular accident (CVA): Sister, Father(V17.1, Z82.3) Status:Active Family history of myocardial infarction: Sister, Father(V17.3, Z82.49) Status:Active Family history of diabetes m ellitus: Father, Sister(V18.0, Z83.3) Status:Active Family history of leukemia: Cousin, Aunt(V16.6, Z80.6) Status:Active Family history of glaucoma: Father, Sister, Uncle, Maternal Aunt(V19.11, Z83.511) Status:Active Family history of malignant neoplasm of ovary: Maternal Cousin(V16.41, Z80.41) Comments:Cousins 30 and 40 w ith chemo/radiation per patient. Unsure if they had genetics. (different mom then othr aunt with breast ca); Status:Active Family history of malignant neoplasm of breast: Maternal Aunt(V16.3, Z80.3) Comments:>50; Status:Active Unknown Family Member Name Dates Details No pertinent family history: Mother(V49.89, Z78.9) Status:Active Family history of cerebrovas cular accident (CVA): Sister, Father(V17.1, Z82.3) Status:Active Family history of myocardial infarction: Sister, Father(V17.3, Z82.49) Status:Active Family history of diabetes m ellitus: Father, Sister(V18.0, Z83.3) Status:Active Family history of leukemia: Cousin, Aunt(V16.6, Z80.6) Status:Active Family history of glaucoma: Father, Sister, Uncle, Maternal Aunt(V19.11, Z83.511) Status:Active Family history of malignant neoplasm of ovary: Maternal Cousin(V16.41, Z80.41) Comments:Cousins 30 and 40 w ith chemo/radiation per patient. Unsure if they had genetics. (different mom then othr aunt with breast ca); Status:Active Family history of malignant neoplasm of breast: Maternal Aunt(V16.3, Z80.3) Comments:>50; Status:Active Unknown Family Member Name Dates Details Family history of cerebrovas cular accident (CVA): Sister, Father(V17.1, Z82.3) Status:Active Family history of myocardial infarction: Sister, Father(V17.3, Z82.49) Status:Active No pertinent family history: Mother(V49.89, Z78.9) Status:Active Family history of diabetes m ellitus: Father, Sister(V18.0, Z83.3) Status:Active Family history of leukemia: Cousin, Aunt(V16.6, Z80.6) Status:Active Family history of glaucoma: Father, Sister, Uncle, Maternal Aunt(V19.11, Z83.511) Status:Active Family history of malignant neoplasm of ovary: Maternal Cousin(V16.41, Z80.41) Comments:Cousins 30 and 40 w ith chemo/radiation per patient. Unsure if they had genetics. (different mom then othr aunt with breast ca); Status:Active Family history of malignant neoplasm of breast: Maternal Aunt(V16.3, Z80.3) Comments:>50; Status:Active Unknown Family Member Name Dates Details No pertinent family history: Mother(V49.89, Z78.9) Status:Active Family history of cerebrovas cular accident (CVA): Sister, Father(V17.1, Z82.3) Status:Active Family history of myocardial infarction: Sister, Father(V17.3, Z82.49) Status:Active Family history of diabetes m ellitus: Father, Sister(V18.0, Z83.3) Status:Active Family history of leukemia: Cousin, Aunt(V16.6, Z80.6) Status:Active Family history of glaucoma: Father, Sister, Uncle, Maternal Aunt(V19.11, Z83.511) Status:Active Family history of malignant neoplasm of ovary: Maternal Cousin(V16.41, Z80.41) Comments:Cousins 30 and 40 w ith chemo/radiation per patient. Unsure if they had genetics. (different mom then othr aunt with breast ca); Status:Active Family history of malignant neoplasm of breast: Maternal Aunt(V16.3, Z80.3) Comments:>50; Status:Active Unknown Family Member Name Dates Details No pertinent family history: Mother(V49.89, Z78.9) Status:Active Family history of cerebrovas cular accident (CVA): Sister, Father(V17.1, Z82.3) Status:Active Family history of myocardial infarction: Sister, Father(V17.3, Z82.49) Status:Active Family history of diabetes m ellitus: Father, Sister(V18.0, Z83.3) Status:Active Family history of leukemia: Cousin, Aunt(V16.6, Z80.6) Status:Active Family history of glaucoma: Father, Sister, Uncle, Maternal Aunt(V19.11, Z83.511) Status:Active Family history of malignant neoplasm of ovary: Maternal Cousin(V16.41, Z80.41) Comments:Cousins 30 and 40 w ith chemo/radiation per patient. Unsure if they had genetics. (different mom then othr aunt with breast ca); Status:Active Family history of malignant neoplasm of breast: Maternal Aunt(V16.3, Z80.3) Comments:>50; Status:Active Unknown Family Member Name Dates Details No pertinent family history: Mother(V49.89, Z78.9) Status:Active Family history of cerebrovas cular accident (CVA): Sister, Father(V17.1, Z82.3) Status:Active Family history of myocardial infarction: Sister, Father(V17.3, Z82.49) Status:Active Family history of diabetes m ellitus: Father, Sister(V18.0, Z83.3) Status:Active Family history of leukemia: Cousin, Aunt(V16.6, Z80.6) Status:Active Family history of glaucoma: Father, Sister, Uncle, Maternal Aunt(V19.11, Z83.511) Status:Active Family history of malignant neoplasm of ovary: Maternal Cousin(V16.41, Z80.41) Comments:Cousins 30 and 40 w ith chemo/radiation per patient. Unsure if they had genetics. (different mom then othr aunt with breast ca); Status:Active Family history of malignant neoplasm of breast: Maternal Aunt(V16.3, Z80.3) Comments:>50; Status:Active Unknown Family Member Name Dates Details No pertinent family history: Mother(V49.89, Z78.9) Status:Active Family history of cerebrovas cular accident (CVA): Sister, Father(V17.1, Z82.3) Status:Active Family history of myocardial infarction: Sister, Father(V17.3, Z82.49) Status:Active Family history of diabetes m ellitus: Father, Sister(V18.0, Z83.3) Status:Active Family history of leukemia: Cousin, Aunt(V16.6, Z80.6) Status:Active Family history of glaucoma: Father, Sister, Uncle, Maternal Aunt(V19.11, Z83.511) Status:Active Family history of malignant neoplasm of ovary: Maternal Cousin(V16.41, Z80.41) Comments:Cousins 30 and 40 w ith chemo/radiation per patient. Unsure if they had genetics. (different mom then othr aunt with breast ca); Status:Active Family history of malignant neoplasm of breast: Maternal Aunt(V16.3, Z80.3) Comments:>50; Status:Active Unknown Family Member Name Dates Details Family Members In General Comments:Aunt-Breast Ca, Cou sin-Ovarian Ca Status:Active Father Comments:Cardiovascular Dise ase early, DM Status:Active Maternal Grandfather Comments:Cardiovascular Dise ase Status:Active Paternal Grandfather Comments:Cardiovascular Dise ase Status:Active Sister 1 Comments:DM Status:Active Unknown Family Member Name Dates Details Family Members In General Comments:Aunt-Breast Ca, Cou sin-Ovarian Ca Status:Active Father Comments:Cardiovascular Dise ase early, DM Status:Active Maternal Grandfather Comments:Cardiovascular Dise ase Status:Active Paternal Grandfather Comments:Cardiovascular Dise ase Status:Active Sister 1 Comments:DM Status:Active Unknown Family Member Name Dates Details Family Members In General Comments:Aunt-Breast Ca, Cou sin-Ovarian Ca Status:Active Father Comments:Cardiovascular Dise ase early, DM Status:Active Maternal Grandfather Comments:Cardiovascular Dise ase Status:Active Paternal Grandfather Comments:Cardiovascular Dise ase Status:Active Sister 1 Comments:DM Status:Active Chief Complaint PT IS HERE TODAY FOR HER ANNUAL EXAM. LAST PAP WAS 12/14/2020, COTEST NEG. HAS NO CONCERNS. DOES A SELF BREAST CHECK. MAMMOGRAM DONE ON 11/26/2021, NEEDS AN ORDER FOR NEXT YEAR. 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 States her discomfort slowly started and has increased over the past year. Patient has some swelling and stiffness. Xrays done 08/11. Referred by .57 y/o female presents for annual [id number] y/o female presents for annual [id number] y/o female presents for annual wellness Summary Purpose Advance Directives No Advanced Directives Records FoundNo Advanced Directives Records FoundNo Advanced Directives Records FoundNo Advanced Directives Records FoundNo Advanced Directives Records Found Additional Source Comments <item><item> Privacy Markings (unrecogniz ed section and content) Section Author: Dominique Patten PROHIBITION ON REDISCLOSURE OF CONFIDENTIAL INFORMATION This notice accompanies a disclosure of information concerning a client made to you with the consent of such client. Section Author: Dominique Patten PROHIBITION ON REDISCLOSURE OF CONFIDENTIAL INFORMATION This notice accompanies a disclosure of information concerning a client made to you with the consent of such client. INFORMATION SOURCE (unrecogn ized section and content) DATE CREATED AUTHOR AUTHOR'S ORGANIZ ATION 12/24/2022 [facility] DATE CREATED AUTHOR AUTHOR'S ORGANIZ ATION 12/24/2022 [employer] DATE CREATED AUTHOR AUTHOR'S ORGANIZ ATION [facility] DATE CREATED AUTHOR AUTHOR'S ORGANIZ ATION 08/07/2023 [facility] Source Comments (unrecognize d section and content) In the event this informatio n is protected by the Federal Confidentiality of Alcohol and Drug Abuse Patient Records regulations: The Federal rules restrict any use of the information to criminally investigate or prosecute any alcohol or drug abuse patient.[facility] Reason for Visit (unrecogniz ed section and content) Care Teams (unrecognized sec tion and content) FOR RECORDS PERTAINING TO PATIENTS WHO ARE OR HAVE BEEN ENROLLED IN A CHEMICAL DEPENDENCY/SUBSTANCEABUSE PROGRAM, SOME INFORMATION MAY BE OMITTED. This clinical summary was aggregated from multiple sources. Caution should be exercised in using it in the provision of clinical care. This summary normalizes information from multiple sources, and as a consequence, information in this document may materially change the coding, format and clinical context of patient data. In addition, data may be omitted in some cases. CLINICAL DECISIONS SHOULD BE BASED ON THE PRIMARY CLINICAL RECORDS. [email or web address] provides no warranty or guarantee of the accuracy or completeness of information in this document.
== END | disposition home or self-care (01) ==
LOC: US 07:41
PROVIDERS: PCP Internal Medicine; Referring Provider Internal Medicine; Visit Provider Internal Medicine
DX: R79.89 Other specified abnormal findings of blood chemistry (principal)
CPT/HCPCS: 76705; 76981

== ENCOUNTER → 2024-01-03 | Outpatient (CLI) | payer OTHER, SELFPAY ==
--- NOTE | 2024-01-03 13:44 | BD_ITS ---
STUDY: DUAL ENERGY X-RAY ABSORPTIOMETRY / DXA REASON FOR EXAM: Female, 58 years old. Z78.0 TECHNIQUE: Bone Mineral Density (BMD) measurements of lumbar spine and bilateral hips were obtained. COMPARISON: None. FINDINGS: Lumbar Spine (L1-L4): g/cm2 (0.913) / T-score (-1.2) / Z-score (-0.1) Findings are suggestive of osteopenia with a low fracture risk. Left Femur Total: g/cm2 (0.970) / T-score (0.2) / Z-score (1.0) Left Femoral Neck: g/cm2 (0.766) / T-score (-0.8) / Z-score (0.4) Right Femur Total: g/cm2 (0.939) / T-score (0.0) / Z-score (0.7) Right Femoral Neck: g/cm2 (0.719) / T-score (-1.2) / Z-score (-0.1) BD/Dexa Bone Density Study IMPRESSION: The patient is considered osteopenic as outlined below according to World Ambros[employer] Organization (WHO) criteria with a low fracture risk. Reference Information: The T-score is the number of standard deviations above or below the standard which is normal for young adults at their peak bone mineral density. The World Health Organization (WHO) interprets the T-scores as follows: Above -1 Normal bone density Between -1 and -2.5 Osteopenia Equal to / or below -2.5 Osteoporosis As a practical clinical guideline, osteopenia may be graded as follows: Mild -1 through -1.5 Moderate -1.6 through -2.0 Severe -2.1 through -2.4 The Z-score is the number of standard deviations above or below age-matched controls. A Z-score of less than -1.5 would be considered abnormal. References: 1. NIH Osteoporosis and Related Bone Diseases www osteo.org 2. International Society for Clinical Densitometry www iscd.org 3. National Osteoporosis Foundation www nof.org Electronically Signed: Hany Kaur MD at 15:00 EDT ,
--- OUTSIDE RECORDS SUMMARY | 2024-01-03 18:28 | XMS RPT_ITS | CCD ---
Author Name Unknown Address [address] [facility] [address] [place] [address] Organization [facility] Care Team Providers Care Employment Programs Analyst Name Role Phone Ravi Dey Unavailable Unavailable Stencel, Ravi Unavailable Unavailable Stencel, Ravi Unavailable Unavailable RobertoSolo Unavailable Unavailable RobertoSolo Unavailable Unavailable Stencel, Ravi Hussein Unavailable Unavailable Unavailable Unavailable Unavailable Ravi Dey Unavailable Scar Dixon Unavailable Unavailable MenashaLindatt Unavailable Dione Avendaño Unavailable Unavailable Scar Apodaca Unavailable [phone] Constanza, Dr. Scar Myles Primary Care Floyd ilgabino Vale, Ms. Diana Myles Attending Unavaila ble Roberto, Dr. Solo Newman Referring Unavailabl e Roberto, Dr. Solo Newman Attending Unavailabl e Stencel, [...] Unavailable SCAR APODACA Primary Care Unavailable Ravi Dey MD Primary Care Provider RAVI DEY Primary Care Unavailable Berta Vargas MD Unavailable Dr. Apolinar Brewer Unavailable Sadie Ayala Unavailable [phone] Sadie Mcmahon MD Unavailable Stan Rush MD Unavailable Abbey Flores CMA Unavailable Unavailable Peggy Lopes MA Unavailable Unavailable Unavailable Unavailable Allergies Allergy Classification Reported Allergen(s) Allergy Type Date of Onset Reaction(s) Facility (19 sources) Sulfamethoxazole / Trimethoprim; Translations: [Bactrim] Drug Allergy Rash -[facility] Work Phone: (20 sources) Sulfonamides (Antibiotic); Translations: [[facility]ulfa Drugs] drug allergy Hives [facility] Work Phone: Medications Current Medications Medication [...] Drug Class(es) Dates Sig (Normalized) Sig (Original) [id number] 200 actuat albuterol 0.09 mg/actuat metered dose [...] index (BMI) [Ratio] 32.51 kg/m2 Abbey Flores RENTAL SALES ASSOCIATE [facility] Work Phone: 08-08-2023 09:56-0400 Body surface area Derived from formula 2.05 m2 Abbey Flores [facility] Work Phone: 08-08-2023 09:56-0400 Body temperature 98.5 [degF] Abbey Flores CMA [facility]; [facility] Work Phone: Encounters Encounter Date Encounter Type Care Provider Facility Start: 08-08-2023 End: 08-08-2023 Office outpatient visit 15 minutes Berta Vargas MD Work Phone: [facility] Start: 08-07-2023 End: 08-07-2023 Annotation/Addendum Berat Vargas MD Work Phone: [facility] Start: 08-03-2023 End: 08-04-2023 ambulatory RAVI DEY Facility:[facility] Start: 08-03-2023 End: 08-03-2023 Patient encounter procedure [facility] [place] Procedures Date Procedure Procedure Detail Performing Clinician Start: 08-07-2023 End: 08-08-2023 Venous Duplex US, Unilateral Procedure Note: See Note; NOTES: [facility] [address] [place] [address] Venous Duplex US, Unilateral 08/07/23 1108 MR#: [id number] Acct: [id number] Name: MEKA CAMPOS Rep #: [id number] : [id number] 57 From: Audie Alvarado MD [...] Dictated: 08/07/23 1108 Date Transcribed: 08/08/23 115 [employer] Flipper: Signed Berta Vargas MD Work Phone: Start: [...] panel - Serum or Plasma Lipid Screening [facility] Start: 12-16-2022 [facility] Start: 11-29-2022 FUV, Provider: Scar Apodaca, Status: Pen, Time: 3:40 PM FUV, Provider: Scar Apodaca, Status: Pen, Time: 3:40 PM [facility] Work Phone: Start: 11-28-2022 Patient encounter procedure Outpatient [facility] [address] [address] Start: 28-Nov-2022 15:20 Solo Mejia Intent [facility] Start: 11-25-2022 EPV, Provider: Ravi Dey, Status: Pen, Time: 8:20 AM EPV, Provider: Ravi Dey, Status: Pen, Time: 8:20 [address] [address] [employer] Work Phone: Start: 11-25-2022 Patient encounter procedure Outpatient [facility] Start: 25-Nov-2022 8:20 Ravi Dey Intent [facility] Start: 10-30-2022 Depression Assessment Depression Assessment [facility] Start: 08-11-2022 NPV, Provider: Diana Vale, Status: Pen, Time: 8:30 AM NPV, Provider: Diana Vale, Status: Pen, Time: 8:30 AM [facility] Work Phone: Start: 04-05-2022 Covid-19 Vaccine (5 - Moderna series) Covid-19 Vaccine (5 - Moderna series) [facility] Start: 12-15-2021 Patient encounter procedure ANNUAL, Provider: Solo Mejia, Status: Pen, Time: 9:30 AM [facility] [employer] Work Phone: Start: 2017 Shingrix Vaccine (1 of 2) Shingrix Vaccine (1 of 2) [facility] Start: 06-24-2014 Procedure Education Eprescribed prescriptions (G8553) [facility] Work Phone: Start: 06-02-2014 Culture bacterial quanttative colony count urine URINE DAVIS CULTURE-CHONG COL COUNT (21831) [facility] Work Phone: Start: 05-28-2014 Procedure Education Eprescribed prescriptions (G8553) [facility] Work Phone: Start: 05-28-2014 Assay of troponin quantitative ASSAY, TROPONIN, QUANTITATIVE (aka Troponin I) ([id number]) [facility] Work Phone: Immunizations Immunization Date Immunization Notes Care Provider Fa yojana 08-03-2023 influenza, injectabl e, quadrivalent, contains preservative Nurse [facility] Work Phone: 07-29-2022 Influenza, injectabl e, Madin Shalonda Canine Kidney, preservative free, quadrivalent Scar Apodaca Work Phone: [facility] Work Phone: 02-08-2022 Comirnaty 30 MCG/0.3 ML Intramuscular Suspension Scar Apodaca Work Phone: [facility] Work Phone: 09-17-2021 Pfizer-BioNTech COVID-19 Vacc 30 MCG/0.3ML Intramuscular Suspension Ravi D Stencel Work Phone: [address] [address] [place] Work Phone: 07-29-2021 influenza, injectabl e, quadrivalent, contains preservative Ravi D Stencel Work Phone: [facility] 12-02-2020 Moderna COVID-19 Vaccine 100 MCG/0.5ML Intramuscular Suspension Ravi D Stencel Work Phone: [address] [address] [place] Work Phone: 11-04-2020 Moderna COVID-19 Vaccine 100 MCG/0.5ML Intramuscular Suspension Ravi D Stencel Work Phone: [address] Work Phone: 07-31-2020 influenza, injectabl e, quadrivalent, contains preservative Nurse [facility] Work Phone: 07-31-2020 influenza, seasonal, injectable Ravi D Stencel Work Phone: [address] Work Phone: Payers Date Payer Category Payer Private Health Insurance ABEL Franky [facility] [id number] 2023-Present [phone] [address] [place] [phone] PPO [id number] 2022 Unknown [id number] 1965 Unknown [id number] 069 1965 Unknown [id number] 069 1965 Unknown [id number] 069 1965 Unknown [id number] 069 1967 Unknown [id number] 069 1967 Unknown [id number] 9 1967 Unknown [id number] 56 1967 Unknown [id number] 56 1965 Unknown [id number] [id number] 56 1965 Unknown [id number] 244 Unknown Unknown [id number] Unknown [id number] Social History Date Type Detail Facility Assertion Unknown if ever smoked [facility] Work Phone: Start: 10-06-2020 End: 12-09-2020 Denies alcohol consumption Denies alcohol consumption [address] Work Phone: Functional Status Date Assessment Result Facility NEGATED: Highlighted row Functional performance Functional status health issues are not documented Disease [facility] Work Phone: Mental Status Date Assessment Result Facility NEGATED: Highlighted row Cognitive function [Interpretation] Cognitive status health issues are not documented [facility] Work Phone: Clinical Notes 06-20-2022 Note Date [...] mg of ibuprofen as needed for pain. [facility] [address] Work Phone: documented in this encounter [facility] [id number] presents for annual exam. Patient safe at home denies abuse. Patient sexually active without concern. Patient using the estrogen cream with some benefit. Patient is a breast exams no lumps lumps masses. Patient's up-to-date on colonoscopy. Patient working on physical activity. Patient had discussion with her family over the holidays and found a lot of ovarian Cancer and would like to discuss.[address] Work Phone: History of Present illness [...] not drink, does not take any medications. [facility] Work Phone: History of [...] weight and then will gain it back. [facility] Work Phone: History of Present illness Narrative* Patient is here today for annual wellness. 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 [facility] Work Phone: History of Present illness Narrative* Patient is here today for annual wellness. 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 [facility] Work Phone: Hisbhka of Present illness Narrative* Patient is here today for annual wellness. 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 [facility] Work Phone: Instructions* Name Dates Details How to access [facility] [employer] online Indication:Overweight Start:24-Jun-2014 Instruction Type:Patient Education How to access [facility] online - Detail Indication:Overweight Start:24-Jun-2014 Instruction Type:Patient Education Patient Instructions Indication:Overweight Start:24-Jun-2014 Instruction Type:Provider Instructions for Treatment How to access [facility] [employer] online Indication:Right flank pain Start:28-May-2014 Instruction Type:Patient Education How to access health [facility] [employer] online - Detail Indication:Right flank pain Start:28-May-2014 [...] LMP: SALO* TASK MESSAGE: FYI: Pt has [employer] WORKER apt on 08/[address] 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, she would like to discuss her [...] by .57 y/o female presents for annual affoxzyn57 y/o female presents for annual [id number] y/o female presents for annual wellness Summary [...] DATE CREATED AUTHOR AUTHOR'S ORGANIZ ATION 12/24/2022 [facility] DATE CREATED AUTHOR AUTHOR'S ORGANIZ ATION 12/24/2022 [facility] DATE CREATED AUTHOR AUTHOR'S ORGANIZ ATION [facility] DATE CREATED AUTHOR AUTHOR'S ORGANIZ ATION 08/07/2023 [facility] Comments (unrecognize d section and content) In the event this informatio n is protected by the Federal Confidentiality of Alcohol and Drug Abuse Patient Records regulations: The Federal rules restrict any use of the information to criminally investigate or prosecute any alcohol or drug abuse patient.[facility] Reason for Visit (unrecogniz ed section and [...] BE BASED ON THE PRIMARY CLINICAL RECORDS. [employer] provides no warranty or guarantee of the accuracy or completeness of information in this document.
== END | disposition home or self-care (01) ==
LOC: OPBD 13:38
PROVIDERS: PCP Internal Medicine; Referring Provider Internal Medicine; Visit Provider Internal Medicine
DX: Z78.0 Asymptomatic menopausal state (principal)
CPT/HCPCS: 77080

== ENCOUNTER → 2024-03-08 | Outpatient (CLI) | payer OTHER, SELFPAY ==
[2024-03-08 11:17] LABS: CRP, High Sensitivity Cardiac 7.93 mg/L; Cholesterol 232 mg/dL (200); High Density Lipoprotein 64 mg/dL; Rheumatoid Factor < 10.0 IU/mL (<15); Triglycerides 113 mg/dL; Very Low Density Lipoprotein 23 mg/dL (5-40)
[2024-03-08 11:51] LABS: Hepatitis B Surface Antibody Reactive
[2024-03-09 16:08] LABS: CCP IgG Antibodies 6 units (0-19); HEPATITIS B SURFACE AG Negative (Negative); Hep C Antibodies Non Reactive (Non Reactive); Hepatitis A IgM Antibody Negative (Negative); Hepatitis B Core AB IgM Negative (Negative)
[2024-03-11 13:07] LABS: ANTINUCLEAR ANTIBODIES DIRECT Negative (Negative)
== END | disposition home or self-care (01) ==
LOC: MTLAB 07:32
PROVIDERS: PCP Internal Medicine; Referring Provider Internal Medicine; Visit Provider Internal Medicine
DX: E78.5 Hyperlipidemia, unspecified (principal); R79.82 Elevated C-reactive protein (CRP); R79.89 Other specified abnormal findings of blood chemistry
CPT/HCPCS: 36415; 80061; 80074; 86038; 86141; 86200; 86431; 86706

== ENCOUNTER → 2024-04-17 | Outpatient (CLI) | payer OTHER, SELFPAY ==
--- NOTE | 2024-04-17 08:17 | US_ITS ---
STUDY: ULTRASOUND OF THE FEMALE PELVIS - COMPLETE REASON FOR EXAM: Female, 58 years old. Dyspareunia, female LMP: Patient is postmenopausal. TECHNIQUE: Transvaginal TECHNICAL QUALITY: Adequate. COMPARISON: None. FINDINGS: The uterus is anteverted and is in a midline position. The uterus measures 5.7 cm x 3.6 cm x 2.5 cm. Normal uterine cervix. The endometrium measures 4 mm in thickness, and is hyperechoic. There is no demonstrated endometrial mass. There is no demonstrated myometrial mass. I.U.D. - The patient does not have an I.U.D. The right ovary is visualized. The right ovary measures 1.5 cm x 1.4 cm x 1.1 cm. There is no right ovarian cyst or ovarian mass. There is no visualized right adnexal mass or complex lesion. There is normal arterial and normal venous vascularity. The left ovary is visualized. The left ovary measures 1.9 cm x 1.4 cm x 1 cm. There is no left ovarian cyst or ovarian mass. There is no visualized left adnexal mass or complex lesion. There is normal arterial and normal venous vascularity. There is no fluid in the cul-de-sac. US/Transvaginal Non- IMPRESSION: Normal postmenopausal female pelvis. Electronically Signed: Hany Kaur MD at 15:22 EDT ,
== END | disposition home or self-care (01) ==
PROVIDERS: PCP Internal Medicine; Referring Provider Internal Medicine; Visit Provider Internal Medicine
DX: N94.10 Unspecified dyspareunia (principal); Z78.0 Asymptomatic menopausal state
CPT/HCPCS: 76830

== ENCOUNTER → 2024-05-21 07:43 | Outpatient (REF) | payer SELFPAY | LOC: CVS 07:43 | PROVIDERS: PCP Internal Medicine; Visit Provider Internal Medicine | DX: Z00.00 Encounter for general adult medical examination without abnormal findings (principal) ==

== ENCOUNTER → 2024-07-18 | Outpatient (CLI) | payer OTHER, SELFPAY ==
[2024-07-18 10:31] LABS: AST(SGOT) 23 U/L (15-37); Alanine Aminotransfer ALT/SGPT 36 U/L (13-56); Albumin, Serum 3.5 g/dL (3.2-5.0); Alkaline Phosphatase 116 U/L (45-117); Bilirubin, Direct 0.12 mg/dL (0.00-0.30); Cholesterol 244 mg/dL (200); Globulin 4.3 g/dL (2.2-4.2); High Density Lipoprotein 73 mg/dL; Protein, Total 7.8 g/dL (6.4-8.2); Triglycerides 98 mg/dL; Very Low Density Lipoprotein 20 mg/dL (5-40)
== END | disposition home or self-care (01) ==
PROVIDERS: PCP Internal Medicine; Referring Provider Internal Medicine; Visit Provider Internal Medicine
DX: E78.5 Hyperlipidemia, unspecified (principal)
CPT/HCPCS: 36415; 80061; 80076

== ENCOUNTER → 2024-09-12 | Outpatient (CLI) | payer OTHER, SELFPAY ==
--- NOTE | 2024-09-12 08:08 | MRI_ITS ---
STUDY: MRI RIGHT KNEE REASON FOR EXAM: Female, 59 years old. Right anterior knee pain since 07/2023. TECHNIQUE: Standardized fat and water weighted pulse sequences were obtained in all 3 orthogonal planes. COMPARISON: Right knee radiographs dated 07/31/2023. FINDINGS: There is a horizontal tear of the posterior horn of the medial meniscus (sagittal PD series 3 image 31). There is peripheral subluxation/extrusion of the body of the medial meniscus (coronal T2 series 6 images 19-20). Normal hyaline cartilage of the medial femorotibial compartment. Normal medial femoral condyle and tibial plateau. Normal medial collateral ligamentous complex (MCL). Normal distal semimembranosus, gracilis and semitendinosus tendons. Normal lateral meniscus. Normal hyaline cartilage of the lateral femorotibial compartment. Normal lateral femoral condyle and tibial plateau. Normal proximal tibiofibular articulation. Normal lateral collateral (fibular) ligament. Normal popliteus tendon. Normal biceps femoris tendon. Normal anterior cruciate ligament (ACL). Normal posterior cruciate ligament (PCL). 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 Congruent patellofemoral articulation. Normal medial and lateral patellar retinaculum. Normal quadriceps tendon. Normal patellar tendon. Normal Hoffa''s fat pad. There is no joint effusion. There is no popliteal cyst. There is mild subcutaneous soft tissue edema anterior to the patellar tendon. There is no acute fracture. MRI/Lower Ext Joint Only (Routine) IMPRESSION: Horizontal tear of the posterior horn of the medial meniscus. Peripheral subluxation/extrusion of the body of the medial meniscus. 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 Mild subcutaneous soft tissue edema anterior to the patellar tendon. No acute ligamentous injury. Electronically Signed: Adal La MD at 11:53 EST ,
== END | disposition home or self-care (01) ==
LOC: MRI 08:02
PROVIDERS: PCP Internal Medicine; Referring Provider Internal Medicine; Visit Provider Internal Medicine
DX: M25.561 Pain in right knee (principal)
CPT/HCPCS: 73721

== ENCOUNTER → 2024-09-20 | Outpatient (CLI) | payer OTHER, SELFPAY ==
[2024-09-30 12:08] LABS: HPV APTIMA, High Risk Negative (Negative)
== END | disposition home or self-care (01) ==
LOC: LABSPEC 10:24
PROVIDERS: PCP Internal Medicine; Referring Provider Advanced Practice Midwife; Visit Provider Advanced Practice Midwife
DX: Z12.4 Encounter for screening for malignant neoplasm of cervix (principal)
CPT/HCPCS: 87624; 88175; G0145

== ENCOUNTER → 2024-09-25 | Outpatient (CLI) | payer OTHER, SELFPAY ==
--- NOTE | 2024-09-25 13:31 | BI_ITS ---
MAMMOGRAPHY - BILATERAL SCREENING 3-D TOMOSYNTHESIS REASON FOR EXAM: Female, 59 years old. Routine screening PERTINENT HISTORY: Aunts with breast cancer.. TECHNIQUE: 2-D mammograms and 3-D Tomosynthesis of the breast (s) were performed. CAD was performed. COMPARISON: 10/16/2018 FINDINGS: The breast composition is composed of scattered fibroglandular density. Scattered benign calcifications are seen. No dense spiculated masses or suspicious microcalcifications are identified. No architectural distortion is identified. There is no skin thickening or retraction. There has been no significant change since the prior study. BI/SCRN MAMM (CAD)W/CASTILLO BILAT IMPRESSION: No mammographic signs of malignancy. Routine yearly mammograms recommended. ASSESSMENT CATEGORY: BIRADS Category 1: Negative. A letter regarding these results will be sent to the patient by the facility within 30 days. FOLLOW UP RECOMMENDATION: Yearly follow up mammogram recommended. (A) Approximately 10% of breast cancers are not detected by mammography. A normal mammogram should not delay biopsy of a clinically suspicious abnormality. Electronically Signed: Kurtis Baugh MD at 14:46 EST ,
== END | disposition home or self-care (01) ==
LOC: OPBI 13:31
PROVIDERS: PCP Internal Medicine; Referring Provider Advanced Practice Midwife; Visit Provider Advanced Practice Midwife
DX: Z12.31 Encounter for screening mammogram for malignant neoplasm of breast (principal)
CPT/HCPCS: 77063; 77067

== ENCOUNTER → 2025-01-16 | Outpatient (CLI) | payer OTHER, SELFPAY ==
--- NOTE | 2025-01-16 10:45 | RAD_ITS ---
EXAM: CHEST PA AND LATERAL CLINICAL HISTORY: Asthma. COMPARISON: None. TECHNIQUE: PA and lateral views of the chest obtained. FINDINGS: The cardiac silhouette is not enlarged. No pulmonary parenchymal consolidative opacities. No pneumothorax or significant pleural effusion. Mild thoracic spine degenerative changes are noted. No acute osseous abnormality is identified. RAD/Chest PA and Lateral IMPRESSION: No radiographic evidence of acute cardiopulmonary disease. Reading Location: [id number]
== END | disposition home or self-care (01) ==
LOC: MTRAD 10:45
PROVIDERS: PCP Internal Medicine; Referring Provider Internal Medicine; Visit Provider Internal Medicine
DX: J45.20 Mild intermittent asthma, uncomplicated (principal)
CPT/HCPCS: 71046

== ENCOUNTER → 2025-06-06 | Outpatient (CLI) | payer OTHER, SELFPAY | END | disposition home or self-care (01) | PROVIDERS: PCP Internal Medicine; Referring Provider Internal Medicine; Visit Provider Internal Medicine | DX: R73.09 Other abnormal glucose (principal) | CPT/HCPCS: 36415; 83036; 83525 ==

== ENCOUNTER → 2025-07-31 | Outpatient (CLI) | payer OTHER, SELFPAY | END | disposition home or self-care (01) | LOC: MRI 13:44 | PROVIDERS: PCP Internal Medicine; Referring Provider Internal Medicine; Visit Provider Internal Medicine | DX: M23.92 Unspecified internal derangement of left knee (principal); M23.91 Unspecified internal derangement of right knee | CPT/HCPCS: 73721 ==

== ENCOUNTER → 2025-08-14 | Outpatient (CLI) | payer SELFPAY ==
--- NOTE | 2025-08-14 07:17 | CT_ITS ---
PROCEDURE: LIMITED CHEST CT CARDIAC ONLY 08/14/2025 REASON FOR EXAM: HYPERLIPIDEMIA TECHNIQUE: Procedure Code: [id number] Modality: CT Procedure: LIMITED CHEST CT CARDIAC ONLY One or more dose reduction techniques were used (e.g., Automated exposure control, adjustment of the mA and/or kV according to patient size, use of iterative reconstruction technique). RADIATION DOSE SUMMARY: CTDlvol: 12.19 mGy DLP: 195.04 mGycm COMPARISON: Chest x-ray of 01/16/2025. CT/Limited Chest CT Cardiac Only IMPRESSION: A small sliding-type hiatal hernia is noted. Limited imaging of the lungs demonstrates no acute process. No pleural effusion or pneumothorax is seen in visualized areas. No adenopathy is noted. The visualized upper abdomen demonstrates no mother significant abnormality. Reading Location: [id number]
--- OUTSIDE RECORDS SUMMARY | 2025-08-14 07:37 | XMS RPT_ITS | CCD ---
Author Organization [facility] Care Team Providers Care Fuse Coiler Name Role Phone Buffyaris Ravi D Unavailable Unavailable Stencel, Ravi Unavailable Unavailable Stencel, Ravi Unavailable Unavailable WaltonLindy Unavailable Unavailable WaltonLindy Unavailable Unavailable Stencel, Ravi D Unavailable [phone] Unavailable Unavailable Unavailable Unavailable Stenaris, Ravi Unavailable Scar Dixon Unavailable Unavailable WaltonLindatt Unavailable Dione Eaton Unavailable Unavailable Scar Apodaca Unavailable [phone] Constanza, Dr. Scar Myles Primary Care Unava ilable Akanksha, Ms. Diana Myles Attending Unavaila ble Walton, Dr. Lindy Newman Referring Unavailabl e Roberto, Dr. Lindy Newman Attending Unavailabl e Stencel, Ravi Cheung Primary Care Unavailab le Stencel, Ravi Cheung Primary Care Unavailab le Stencel, Ravi Cheung Referring Unavailab le Stencel, Ravi Cheung Attending Unavailab le Bitner, MrZulma Espinal Attending Unavaila ble Stencel, Ravi Cheung Primary Care Unavailab le Stencel, Ravi Cheung Primary Care Unavailab le KaterynaDione Attending Unavailable Stencel, Ravi Cheung Primary Care Unavailab le ZackScar Attending Unavailab le Constanza, Dr. Scar Myles Primary Care Unava ilable Akanksha, Ms. Diana Myles Attending Unavaila ble Constanza, Dr. Scar Myles Referring Unava ilable Constanza, Dr. Scar Myles Primary Care Unava ilable Constanza, Dr. Scar Myles Referring Unava ilable Obergeno, Dr. Scar Myles Attending Unava ilable Oberhauser, Dr. Scar Myles Attending Unava ilable Obleora, Dr. Scar Myles Primary Care Unava ilable Obleora, Dr. Scar Myles Referring Unava ilable HANY BAJWA Attending Unavailable SCAR APODACA Primary Care Unavailable Ravi Dey MD Primary Care Provider RAVI DEY Primary Care Unavailable Berta Vargas MD Unavailable Dr. Apolinar Brewer Unavailable Sadie Ayala Unavailable Lisandro CINTRON, Dr. Sadie Inman Unavailable Stan Rush MD Unavailable Mark FLOWERS, Abbey Unavailable Unavailable Peggy Lopes MA Unavailable Unavailable Unavailable Unavailable Dr. Scar Apodaca Primary Care Provider Dr. Scar Apodaca Referring Provider CLAUDIA Reyes Attending Provider Dr. Audie Alvarado Attending Provider Dr. Scar Apodaca Primary Care Provider Dr. Scar Apodaca Referring Provider CLAUDIA Reyes Attending Provider Dr. Audie Alvarado Attending Provider Dr. Berta Vargas Referring Provider Dr. Scar Apodaca Primary Care Provider Dr. Scar Apodaca Referring Provider [phone] TRACEY Laird Attending Provider Dr. Scar Apodaca Primary Care Provider Dr. Scar Apodaca Referring Provider TRACEY Laird Attending Provider Tee CINTRON, Dr. Hampton Primary Care Provider [phone] Eitan WEBB, Rose Attending Provider [phone] Eitan WEBB, Rose Referring Provider [phone] Tee CINTRON, Dr. Hampton Attending Provider [phone] Tee CINTRON, Dr. Hampton Referring Provider [phone] Tee CINTRON, Dr. Hampton Primary Care Provider [phone] Tee CINTRON, Dr. Hampton Attending Provider [phone] Tee CINTRON, Dr. Hampton Referring Provider Assessment, Health Risk Attending Provider Unava ilable Assessment, Health Risk Referring Provider Unava ilable Bonezzi, Berta Primary Care Unavailable Bonezzi, Berta Attending Unavailable Bonezzi, Berta Referring Unavailable Bonezzi, Berta Primary Care Unavailable Bonezzi, Berta Attending Unavailable Bonezzi, Berta Referring Unavailable Bonezzi, Berta Referring Unavailable Bonezzi, Berta Primary Care Unavailable Bonezzi, Berta Attending Unavailable Eitan, Rose Attending Unavailable Eitan, Rose Referring Unavailable Bonezzi, Berta Primary Care Unavailable Eitna, Rose Attending Unavailable Eitan, Rose Referring Unavailable Bonezzi, Berta Primary Care Unavailable Bonezzi, Berta Referring Unavailable Bonezzi, Berta Primary Care Unavailable Bonezzi, Berta Attending Unavailable Bonezzi, Berta Primary Care Unavailable Assessment, Health Risk Attending Unavaila ble Assessment, Health Risk Referring Unavaila ble Bonezzi, Berta Primary Care Unavailable Bonezzi, Berta Attending Unavailable Eitan, Rose Attending Unavailable Bonezzi, Berta Primary Care Unavailable OberhauserScar Referring Unavailable Bonezzi, Berta Primary Care Unavailable Bonezzi, Berta Attending Unavailable Bonezzi, Berta Referring Unavailable Allergies Allergy Classification Reported Allergen(s) Allergy Type Date of Onset Reaction(s) Facility (19 sources) Sulfamethoxazole / Trimethoprim; Translations: [Bactrim] [place] [place] (20 sources) Sulfonamides (Antibiotic); Translations: [Sulfa Drugs] drug allergy Hives [facility] [place] Work Phone: Comment on above: hives (3 sources) Sulfamethoxazole / Trimethoprim; Translations: [SULFAMETHOXAZOLE-T RIMETHOPRIM] Drug Allergy 12-09-19 [facility] 3 Repository (10 sources) Sulfonamides (Antibiotic); Translations: [SULFA (SULFONAMIDE ANTIBIOTICS)] Propensity to adverse reactions to drug (disorder) 12-09-19 [facility] 3 Repository (8 sources) Macrobid *URINARY ANTI-INFECTIVES* Allergy to drug (finding) [facility] Work Phone: Comment on above: hives (4 sources) Sulfamethoxazole Drug Allergy 09-19-20 Rash [facility] (4 sources) Trimethoprim Drug Allergy 09-19-20 23 [facility] (5 sources) Seasonal Allergies: Uncoded; Translations: [Seasonal Allergies: Uncoded] Allergy to substance 09-19-20 Other [facility] (1 source) Sulfamethoxazole Drug Allergy 09-20-20 [facility] Repository (1 source) Trimethoprim Drug Allergy 09-20-20 [facility] Repository Medications Current Medications Medication Drug Class(es) Dates Sig (Normalized) Sig (Original) cholecalciferol 0.01 mg oral capsule (15 sources) Vitamin D Start: 09-20-2024 take 1 capsule by mouth once daily Cholecalciferol (Vitamin D3) 10 mcg (400 unit) capsule Active 10 ug PO daily September 20, 2024 1:00am Start: 11-13-2020 take 1 tablet by valentine th once daily Vitamin D3 75 MCG (3000 UT) Oral Tablet Take 1 tablet daily Quantity: 30 Refills: 0 Ordered: 15-Nov-2021 Ravi Dey MD Start : 13-Nov-2020 Active Start: 11-13-2020 Vitamin D3 1.2 5 MG (72624 UT) Oral Tablet Refills: 0 Ravi Dey MD Start : 13-Nov-2020 Active ciprofloxacin 500 mg oral tablet (9 sources) Quinolone Antimicrobial Start: 04-25-2022 End: 04-29-2022 take 1 tablet by mouth twice daily Cipro 500 mg oral tablet ; 1 tab(s) orally 2 times a day Quantity: 10 Refills: 0 Ordered: 25-Apr-2022 Dione Eaton Start: 25-Apr-2022 End: 29-Apr-2022 Generic Substitution Allowed Comments: Avoid prolonged or excessive exposure to direct and/or artificial sunlight while taking this medication.Check with your doctor before becoming .Do not take dairy products, antacids, or iron preparations within one hour of this medication.Finish all this medication unless otherwise directed by prescriber.Medication should be taken with plenty of water. Start: 06-02-2014 End: 06-12-2014 take 1 tablet by mouth twice daily CIPRO, 500MG (Oral Tablet) 1 (one) Tablet bid for 10 days Quantity: 20 {Tablet} Refills: 0 Ordered: 02-Jun-2014 Debbie Phan DO Start : 02-Jun-2014 End : 12-Jun-2014 Inactive Comment on above: Avoid prolonged or e xcessive exposure to direct and/or artificial sunlight while taking this medication.Check with your doctor before becoming .Do not take dairy products, antacids, or iron preparations within one hour of this medication.Finish all this medication unless otherwise directed by prescriber.Medication should be taken with plenty of water. Multivitamin preparation (14 sources) Start: 023 take 1 tablet by mouth once daily Multivitamin Active 1 TABLET PO DAILY July 30, 2023 11:00pm Start: 07-31-2023 take 1 tablet by valentine th once daily Multivitamin Active 1 TABLET PO DAILY July 31, 2023 12:00am take 1 tablet by valentine th once daily MULTIVITAMIN (PO Tab) 1 (one) qd Active take 1 tablet by valentine th once daily Multiple Vitamins oral tablet ; 1 tab(s) orally once a day Quantity: 0 Refills: 0 Ordered: 02-Dec-2019 Patsy Donis Generic Substitution Allowed Multivitamin tablet (4 sources) Start: 09-20-2024 Multivitamin t ablet Active 1 {tbl} PO EVERY MORNING September 20, 2024 1:00am Start: 07-31-2023 Multivitamin t ablet Active 1 {tbl} PO DAILY July 31, 2023 12:00am Completed/Discontinued Medications Medication Drug Class(es) Dates Sig (Normalized) Sig (Original) [id number] 200 actuat albuterol 0.09 mg/actuat metered dose inhaler (8 sources) beta2-Adrenergic Agonist Start: 05-28-2014 End: 08-08-2023 ProAir HFA 90 mcg/actuation inhalation HFA Aerosol with Adapter 2 (two) Aerosol Soln Aerosol Soln puffs 15 minutes prior to exercise for 0 days Quantity: 1 {Unspecified} Refills: 2 Ordered: 08-Aug-2023 Mark KRISTIEAbbey Start : 28-May-2014 End : 08-Aug-2023 Inactive amoxicillin 875 mg / clavulanate 125 mg oral tablet (8 sources) Penicillin-class Antibacterial Start: 03-05-2014 End: 03-19-2014 take 1 tablet by mouth twice daily AUGMENTIN, 875-125MG (Oral Tablet) 1 (one) Tablet Tablet bid for 14 days Quantity: 28 {Tablet} Refills: 0 Ordered: 05-Mar-2014 Leannmelba Tanya Start : 05-Mar-2014 End : 19-Mar-2014 Inactive [...] Quantity: 3 {Unspecified} Refills: 0 Ordered: 08-Aug-2023 Danieljina FLOWERS Abbey Start : 28-May-2014 End : 08-Aug-2023 Inactive Start: 05-28-2014 QVAR, 40MCG/AC T (Inhalation Aerosol Solution) 2 (two) Aerosol Soln Aerosol Soln puffs qam for 0 days Quantity: 3 {Unspecified} Refills: 0 Ordered: 24-Jun-2014 Mark FLOWERS Abbey Start : 28-May-2014 Active benzonatate 100 mg oral capsule (8 sources) Non-narcotic Antitussive Start: 10-11-2007 End: 08-26-2008 take 1 capsule by mouth three times daily as needed TESSALON PERLES, 100MG (Oral Capsule) Capsule TID/PRN for 0 days Quantity: 20 {Capsule} Refills: 0 Ordered: 11-Oct-2007 DOC Cardona LPN Start : 11-Oct-2007 End : 26-Aug-2008 Inactive bifidobacterium animalis [id number] unt / lactobacillus acidophilus [id number] unt oral capsule (8 sources) Start: 06-02-2014 End: 08-08-2023 take 1 capsule by mouth once daily L. acidophilus/Bifid. animalis 32 billion cell oral capsule 1 (one) Capsule Capsule qd 2 hours after atb for 0 days Quantity: 10 {Capsule} Refills: 0 Ordered: 08-Aug-2023 Abbey Flores CMA Start : 02-Jun-2014 End : 08-Aug-2023 Inactive bifidobacterium infantis 4 mg oral capsule (8 sources) Start: 03-05-2014 End: 03-20-2014 take 1 capsule by mouth once daily ALIGN, 4MG (Oral Capsule) 1 (one) Capsule Capsule daily for 0 days Quantity: 30 {Capsule} Refills: 0 Ordered: 20-Mar-2014 DOC Cardona LPN Start : 05-Mar-2014 End : 20-Mar-2014 Inactive carboxymethylcellulose sodium 2.5 mg/ml ophthalmic solution (1 source) Carboxymethylcel lulose Sodium (THERATEARS) 0.25 % dpet Use 1 Drop in both eyes as needed. 0 Active Comment on above: Use 1 Drop in both e yes as needed. cholecalciferol, vitamin D3, (VITAMIN D3 ORAL) (1 source) cholecalciferol, vitamin D3, (VITAMIN D3 ORAL) Take by mouth. 0 Active Comment on above: Take by mouth. cyclobenzaprine hydrochloride 10 mg oral tablet (6 sources) Muscle Relaxant Start: 07-31-2023 End: 09-20-2024 take 1 tablet by mouth three times daily as needed for muscle spasms Cyclobenzaprine 10 mg tablet Discontinued 10 mg PO THREE TIMES A DAY as needed for muscle spasm 20 0 July 31, 2023 12:00am September 20, 2024 10:40am estradiol 0.1 mg/ml vaginal cream (12 sources) Estrogen Start: 09-19-2023 End: 09-20-2024 Estradiol (Estrace) 0.01 % (0.1 mg/gram) cream Discontinued 0.25 NMA VAGINAL DAILY 42.5 6 June 25, 2024 12:52pm September 20, 2024 10:42am Menopausal vaginal dryness Menopausal and female climacteric states daily for 2 weeks; then 2 times weekly Start: 09-19-2023 Estradiol (Est race) 0.01 % (0.1 mg/gram) cream Active 1 APPFUL VAGINAL DAILY 42.5 September 19, 2023 1:00am daily for 2 weeks; then 2 times weekly Start: 12-14-2020 Estradiol 0.1 MG/GM Vaginal Cream Take 1g vaginally daily for two weeks. Then decrease to 1-3 times weekly to comfot. Quantity: 1 Refills: 2 Ordered: 15-Dec-2021 Lindy Carbajal DO Start : 14-Dec-2020 Active Start: 12-14-2020 Estradiol 0.1 MG/GM Vaginal Cream Take 1g vaginally daily for two weeks. Then decrease to 1-3 times weekly to comfot. Quantity: 1 Refills: 2 Lindy Carbajal DO Start : 14-Dec-2020 Active 42.5 GM Tube 12 hr fexofenadine hydrochloride 60 mg / pseudoephedrine hydrochloride 120 mg extended release oral tablet (8 sources) alpha-Adrenergic Agonist, Histamine-1 Receptor Antagonist Start: 12-17-2010 End: 02-25-2011 take 60-120 mg by mouth every twelve hours as needed JEMMA-D 12 HOUR, 60-120MG (Oral Tablet Extended Release 12 Hour) 1 Tablet ER 12HR q 12 hrs prn for 0 days Quantity: 20 {Tablet_ER_12HR} Refills: 0 Ordered: 25-Feb-2011 DOC Cardona LPN Start : 17-Dec-2010 End : 25-Feb-2011 Inactive meloxicam 15 mg oral tablet (4 sources) Nonsteroidal Anti-inflammatory Drug Start: 08-08-2023 take 1 tablet by mouth in the morning meloxicam 15 mg oral tablet 1 (one) tablet in am for 0 days Quantity: 14 {Tablet} Refills: 0 Ordered: 08-Aug-2023 Tee CINTRON, Berta Vargas MD, Berta Inman Start : 08-Aug-2023 Active metroNIDAZOLE 500 mg oral tablet (8 sources) Nitroimidazole Antimicrobial Start: 08-11-2011 End: 08-18-2011 take 1 tablet by mouth twice daily FLAGYL, 500MG (Oral Tablet) 1 Tablet BID for 7 days Quantity: 14 {Tablet} Refills: 0 Ordered: 11-Aug-2011 DOC Cardona LPN Start : 11-Aug-2011 End : 18-Aug-2011 Inactive MULTI-VITAMIN ORAL (1 source) take 1 tablet by mouth once daily MULTI-VITAMIN ORAL 1 tablet daily 0 Active Comment on above: 1 tablet daily mv,calcium,min/iron/ folic/vitK (ONE-A-DAY WOMEN'S COMPLETE ORAL) (1 source) mv,calcium,min/i katya/ folic/vitK (ONE-A-DAY WOMEN'S COMPLETE ORAL) Take by mouth. 0 Active Comment on above: Take by mouth. 12 hr naproxen sodium 220 mg / pseudoephedrine hydrochloride 120 mg extended release oral tablet (8 sources) alpha-Adrenergic Agonist, Nonsteroidal Anti-inflammatory Drug Start: 03-05-2014 End: 03-20-2014 take 1 tablet by mouth every twelve hours as needed, then take 1 tablet by mouth every twelve hours as needed ALEVE-D SINUS & COLD, 120-220MG (Oral Tablet Extended Release 12 Hour) 1 (one) Tablet ER 12HR Tablet ER 12HR prn for 0 days Quantity: 30 {Tablet} Refills: 0 Ordered: 20-Mar-2014 DOC Cardona LPN Start : 05-Mar-2014 End : 20-Mar-2014 Inactive nitrofurantoin, macrocrystals 25 mg / nitrofurantoin, monohydrate 75 mg oral capsule (11 sources) Nitrofuran Antibacterial Start: 08-19-2022 take 1 capsule by mouth once daily Nitrofurantoin Monohyd Macro 100 MG Oral Capsule TAKE 1 CAPSULE EVERY 12 HOURS DAILY. Quantity: 10 Refills: 0 Ordered: 19-Aug-2022 Scar Apodaca DO Start : 19-Aug-2022 Active Start: 09-12-2020 End: 10-05-2021 take 1 capsule by mouth twice daily at mealtime Macrobid 100 mg oral capsule ; 1 cap(s) orally 2 times a day Quantity: 10 Refills: 0 Ordered: 01-Oct-2021 Ravi Sesay Start: 12-Sep-2020 End: 05-Oct-2021 Status: Other Generic Substitution Allowed Comments: Finish all this medication unless otherwise directed by prescriber.May discolor urine or feces.Take with food or milk. Start: 08-26-2008 End: 11-17-2008 take 1 capsule by mouth twice daily MACROBID, 100MG (Oral Capsule) Capsule BID for 0 days Quantity: 14 {Capsule} Refills: 0 Ordered: 26-Aug-2008 Leana Herman Start : 26-Aug-2008 End : 17-Nov-2008 Discontinued Comment on above: Finish all this medi cation unless otherwise directed by prescriber.May discolor urine or feces.Take with food or milk. No Reported Medications (4 sources) No Reported Medi cations Refills: 0 Active No Reported Medi cations Refills: 0 DO Active omeprazole 40 mg delayed release oral capsule (8 sources) Proton Pump Inhibitor Start: 10-13-2011 End: 03-05-2014 OMEPRAZOLE, 40MG (Oral Capsule Delayed Release) [address] daily for 0 days Quantity: 30 {Capsule_DR} Refills: 0 Ordered: 05-Mar-2014 Nga Long LPN Start : 13-Oct-2011 End : 05-Mar-2014 Inactive One Daily For Women TABS (11 sources) One Daily For Women TABS Quantity: 0 Refills: 0 Ordered: 10-Dec-2019 DO Active predniSONE 20 mg oral tablet (8 sources) Start: 03-06-2014 End: 03-10-2014 take 1 tablet by mouth once daily PREDNISONE, 20MG (Oral Tablet) 1 (one) Tablet qd for 0 days Quantity: 4 {Tablet} Refills: 0 Ordered: 10-Mar-2014 Abbey Flores CMA Start : 06-Mar-2014 End : 10-Mar-2014 Inactive VITAMIN (Oral Tablet) (8 sources) Start: 05-21-2009 End: 05-21-2009 take 1 tablet by mouth once daily VITAMIN (Oral Tablet) 1 Tablet QD for 0 days Quantity: 30 {Tablet} Refills: 6 Ordered: 21-May-2009 DOC Cardona LPN Start : 21-May-2009 End : 21-May-2009 Discontinued Comments: This order discontinued per [facility]. Comment on above: This order discontin ued per [facility]. valACYclovir 1000 mg oral tablet (2 sources) Herpesvirus Nucleoside Analog DNA Polymerase Inhibitor, Herpes Simplex Virus Nucleoside Analog DNA Polymerase Inhibitor, Herpes Zoster Virus Nucleoside Analog DNA Polymerase Inhibitor Start: 01-04-2022 End: 01-10-2022 take 1 tablet by mouth three times daily valACYclovir 1 g oral tablet ; 1 tab(s) orally 3 times a day x 7 days Quantity: 21 Refills: 0 Ordered: 04-Jan-2022 ZackScar ashley Start: 04-Jan-2022 End: 10-Jan-2022 Generic Substitution Allowed Comments: It is very important that you take or use this exactly as directed. Do not skip doses or discontinue unless directed by your doctor. Comment on above: It is very important that you take or use this exactly as directed. Do not skip doses or discontinue unless directed by your doctor. WOMENS ONE DAILY (Oral Tablet) (8 sources) Start: 08-26-2008 End: 03-24-2009 take 1 tablet by mouth once daily WOMENS ONE DAILY (Oral Tablet) 1 Tablet QD for 0 days Refills: 0 Ordered: 24-Mar-2009 DOC Cardona LPN Start : 26-Aug-2008 End : 24-Mar-2009 Inactive Problems Active Problems Problem Classification Problem Date Documented Date Episodic/Chronic Abdominal pain (20 sources) Lower abdominal pain, unspecified; Translations: [Right flank pain] Onset: 10-01-2021 Resolved: 03-20-2014 06-24-2014 Episodic Comment on above: need to check CT sca n no vaginal dc. 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 w ill do cholesteral mammo done - pap 9-13 Allergic reactions (16 sources) Eruption due to drug; Translations: [Rash, drug] Resolved: 03-20-2014 03-20-2014 Episodic Asthma (1 source) Mild intermittent asthma, uncomplicated; Translations: [Mild intermittent asthma, uncomplicated] Onset: 01-23-2025 Chronic Cancer; other and unspecified primary (16 sources) Abnormal Papanicolaou smear of vagina and vaginal HPV; Translations: [NONSPECIFIC ABNORMAL PAPANICOLAOU SMEAR OF OTHER SITE] Resolved: 03-20-2014 03-20-2014 Episodic Chronic obstructive pulmonary disease and bronchiectasis (16 sources) Bronchitis, not specified as acute or chronic; Translations: [BRONCHITIS, NOT SPECIFIED ACUTE OR CHRONIC (490.)] Resolved: 05-06-2009 03-20-2014 Episodic Diabetes mellitus without complication (1 source) Other abnormal glucose; Translations: [Other abnormal glucose] Onset: 06-12-2025 Episodic Digestive congenital anomalies (3 sources) Disorder of palate; 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 recheck cb c in 4 weeks. now normal and hold off with masci Disorders of lipid metabolism (14 sources) Hyperlipidemia; Translations: [Other and unspecified hyperlipidemia] Onset: 08-05-2025 Chronic Esophageal disorders (16 sources) Esophageal reflux; Translations: [Gerd] 06-24-2014 Chronic Comment on above: treat with PPI Fever of unknown origin (20 sources) Pyrexia of unknown origin; Translations: [Fever of undetermined origin] Resolved: 03-20-2014 03-20-2014 Episodic Comment on above: fever spike at night with chills rigors Genitourinary symptoms and ill-defined conditions (20 sources) Increased frequency of urination; Translations: [Urinary frequency] Onset: 10-01-2021 Resolved: 03-20-2014 04-25-2022 Episodic Headache; including migraine (1 source) Headache; including migraine; Translations: [Headache, unspecified] Onset: 01-04-2022 Immunizations and screening for infectious disease (1 source) Encounter for immunization; Translations: [Encounter for immunization] Onset: 08-03-2023 Episodic Inflammatory diseases of female pelvic organs (16 sources) Vaginitis and vulvovaginitis, unspecified; Translations: [VAGINITIS NOS] Resolved: 03-20-2014 03-20-2014 Episodic Joint disorders and dislocations; trauma-related (1 source) Unspecified internal derangement of right knee; Translations: [Unspecified internal derangement of right knee] Onset: 07-31-2025 Chronic Joint disorders and dislocations; trauma-related (1 source) Unspecified internal derangement of left knee; Translations: [Unspecified internal derangement of left knee] Onset: 07-31-2025 Chronic Menopausal disorders (6 sources) Vaginal dryness; Translations: [Menopausal and female climacteric states] 09-19-2023 Chronic Menstrual disorders (20 sources) Absence of menstruation; Translations: [Absence of menstruation] Resolved: 03-20-2014 03-20-2014 Chronic Neoplasms of unspecified nature or uncertain behavior (20 sources) Neoplasm of uncertain behavior of skin; Translations: [Lesion-Unknown behavior] Resolved: 03-20-2014 03-20-2014 Episodic Comment on above: right shoulder 7mm w ill shave and send Nonmalignant breast conditions (20 sources) Other signs and symptoms in breast; Translations: [Other signs and symptoms in breast] 06-24-2014 Episodic Comment on above: left nipple dry brow n keratosis like covering nipple, since breast feeding [address] mcmahon thought breast milk and did blood test and not follow up yet on. Nonspecific chest pain (20 sources) Other chest pain; Translations: [CHEST PAIN] 06-24-2014 Episodic Comment on above: funny tight feeling. stress echo good spirometry mild obstruction, cxr good. qvar daily will recheck spirometry. use qvar before exercise...explain that will nto work as pt notice needs proair before exercisd will try and follow up Osteoarthritis (7 sources) Osteoarthrosis of the carpometacarpal joint of the thumb; Translations: [Osteoarthrosis, localized, primary, hand] Onset: 08-11-2022 Chronic Other bone disease and musculoskeletal deformities (13 sources) Osteopenia; Translations: [Disorder of bone and cartilage, unspecified] Episodic Other circulatory disease (13 sources) Feeling of lump in throat; Translations: [Swelling, mass, or lump in head and neck] Episodic Other complications of ; puerperium affecting management of mother (13 sources) Deliveries by ; Translations: [ delivery, without mention of indication, unspecified as to episode of care or not applicable] Episodic Comment on above: 07/15/2009 FEMALE; Other connective tissue disease (8 sources) Pain in thumb ; Translations: [Pain in limb] Episodic Other connective tissue disease (3 sources) Pain in right finger(s); Translations: [Pain in right finger(s)] Onset: 08-11-2022 Episodic Other connective tissue disease (2 sources) Neuralgia and neuritis, unspecified; Translations: [Neuralgia and neuritis, unspecified] Onset: 01-16-2023 Episodic Other connective tissue disease (20 sources) Swelling of right lower limb; Translations: [Right leg swelling] 08-07-2023 Episodic Other endocrine disorders (2 sources) Menarche; 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 tylenol heat massage. if not better PT and c spine check. call with weakness Other non-traumatic joint disorders (8 sources) Anterior knee pain; Translations: [Knee pain, right anterior] 08-08-2023 Episodic Other nutritional; endocrine; and metabolic disorders (3 sources) Obesity; Translations: [Obesity, unspecified] Chronic Other nutritional; endocrine; and metabolic disorders (20 sources) Overweight; Translations: [Overweight] 06-24-2014 Episodic Other skin disorders (16 sources) Seborrheic keratosis; Translations: [Other seborrheic keratosis] Resolved: 03-20-2014 03-20-2014 Episodic Other skin disorders (20 sources) Eruption; Translations: [Rash] Resolved: 03-20-2014 03-20-2014 Episodic Other upper respiratory disease (16 sources) Nasal sinus problem; Translations: [Sinus drainage] Resolved: 03-20-2014 03-20-2014 Episodic Other upper respiratory infections (16 sources) Sinusitis; Translations: [Sinusitis] Resolved: 03-20-2014 03-20-2014 Chronic Other upper respiratory infections (20 sources) Acute pharyngitis; Translations: [ACUTE PHARYNGITIS (462.)] Resolved: 03-20-2014 03-20-2014 Episodic Ovarian cyst (20 sources) Other and unspecified ovarian cyst; Translations: [Ovarian Cyst, Unspecified] 06-24-2014 Episodic Comment on above: has ovarian cancer i n family so will assure just follow up on it. Residual codes; unclassified (6 sources) Menopause present; Translations: [Menopause] Chronic Residual codes; unclassified (20 sources) Past history of procedure; Translations: [Other specified personal history presenting hazards to health] Episodic Comment on above: 11/2019; 11/25/2020; 12/14/[id number] N EGATIVE06/29/17 NIL Per records; Residual codes; unclassified (11 sources) Menopause present; Translations: [Symptomatic menopausal or female climacteric states] Episodic Residual codes; unclassified (11 sources) History of clinical finding in subject; Translations: [Asymptomatic postmenopausal status (age-related) (natural)] Episodic Comment on above: 2018; Residual codes; unclassified (16 sources) FH: Glaucoma; Translations: [Family history of glaucoma] 06-24-2014 Episodic Residual codes; unclassified (16 sources) Family history of leukemia; Translations: [Family history of leukemia] 06-24-2014 Episodic Comment on above: Aunt Spondylosis; intervertebral disc disorders; other back problems (20 sources) Thoracic or lumbosacral neuritis or radiculitis, unspecified; Translations: [LOW BACK PAIN WITH RADICULOPATHY] Resolved: 05-06-2009 06-24-2014 Episodic Comment on above: call bowelor bladder change. back exercises handout given tylenol heat massage Unclassified (2 sources) SHINGLES 01-04-2022 Comment on above: SHINGLES Unclassified (2 sources) KIDNEY INF 04-25-2022 Comment on above: KIDNEY INF Unclassified (20 sources) Urinary tract infections (20 sources) Pyelonephritis; Translations: [Pyelonephritis, unspecified] Onset: 04-25-2022 04-25-2022 Episodic Comment on above: feeling better on zp ack but not sensitive to, will add cipro Viral infection (17 sources) Genital herpes simplex; Translations: [Genital herpes] 02-23-2004 Chronic Viral infection (20 sources) Herpes zoster; Translations: [Herpes zoster without mention of complication] Onset: 01-04-2022 Resolved: 05-06-2009 01-04-2022 Episodic Comment on above: better after atb and seeing Dr. brewer with family history of leukemia and cbc off some. not concerned but have appt will keep does have allergy si gns and symptoms handout given with fever ? viral now. in not better 1 week call Past or Other Problems Problem Classification Problem Date Documented Date Episodic/Chronic Other connective tissue disease (1 source) Pain in right thigh; Translations: [Pain in right thigh] Onset: 01-04-2022 Episodic Other non-traumatic joint disorders (9 sources) Pain in right knee; Translations: [Right knee pain] Onset: 10-09-2024 07-31-2023 Episodic Other screening for suspected conditions (not mental disorders or infectious disease) (20 sources) Patient encounter status; Translations: [Special screening for malignant neoplasms of colon] Onset: 10-21-2008 Resolved: 03-20-2014 Episodic Comment on above: labs ordered will st ool for parasite , repeating CBC, CRP, ОЛЕГ, IGE,known hsv Other skin disorders (1 source) Rash and [...] sources) Deliveries (Parity); Translations: [Deliveries (Parity)] 06-24-2014 Comment on above: 0 Unclassified (8 sources) Pregnancies (); Translations: [Pregnancies ()] 06-24-2014 Comment on above: 0 Unclassified (20 sources) Unspecified Diagnosis Resolved: 03-20-2014 06-24-2014 NEGATED: Highlighted row has not occurred!Residual codes; unclassified (7 sources) Disease Episodic Results Test Name Value Interpretation Reference Range Facility Lower Ext Joint Only (Routin e)on 07-31-2025 Lower Ext Joint Only (Routine) [facility] Imaging Services [address] [place] [address] [id number] Lower Ext Joint Only (Routine) MR#: [id number] Acct: [id number] Name: MEKA CAMPOS Rep #: [id number] : 1965 F 59 From: Jonatan Hussein PCP: Dr. Berta Vargas MD Status: REG CLI Study: Lower Ext Joint Only (Routine) Date of Exam: Exam# [id number] Ordering Dr: Berta Vargas MD PROCEDURE: LOWER EXT JOINT ONLY (ROUTINE) 07/31/2025 REASON FOR EXAM: INTERNAL DERANGEMENT OF RIGHT KNEE TECHNIQUE: Procedure Code: MRILEJ Modality: MR Procedure: MRI of the right knee without contrast. Multiplanar and multisequence images were obtained without IV contrast administration. COMPARISON: COMPARISON : Right knee MRI 09/12/2024. FINDINGS: Bone and bone marrow: No acute osseous signal change is seen. Significant degenerative changes of the patellofemoral articulation noted, with moderate to moderately severe irregular articular cartilage thinning, similar in appearance to the prior examination. The medial and lateral compartments show no significant articular cartilage thinning or defect. Effusion: No joint effusion is seen. A tiny Vyas's cyst is noted. Menisci: Again present is a parrot beak tear of the body and posterior horn of the medial meniscus, fairly similar in appearance to the prior examination. No lateral meniscal tear is identified. Soft Tissues: No soft tissue mass is seen. No free or loculated fluid collection is noted. Ligaments and Tendons: Cruciate and collateral ligaments appear intact. MRI/Lower Ext Joint Only (Routine) IMPRESSION: Medial meniscal body and posterior horn tear is very similar to the prior examination 09/12/2024. Significant patellofemoral degenerative changes, similar to the prior examination, as well. Reading Location: [place] [address] CC: Dr. Berta Vargas MD Nicking Machine Operator: Signed Normal [facility] Lower Ext Joint Only (Routine) [facility] Imaging Services [address] [place] [id number] Lower Ext Joint Only (Routine) MR#: [id number] Acct: [id number] Name: MEKA CAMPOS Rep #: [id number] : 1965 F 59 From: Jonatan Hussein PCP: Dr. Berta Vargas MD Status: REG CLI Study: Lower Ext Joint Only (Routine) Date of Exam: 1 Exam# [id number] Ordering Dr: Berta Vargas MD PROCEDURE: LOWER EXT JOINT ONLY (ROUTINE) 07/31/2025 REASON FOR EXAM: INTERNAL DERANGEMENT OF left KNEE. TECHNIQUE: Procedure Code: MRILEJ Modality: MR Procedure: MRI of the left knee without contrast Multiplanar and multisequence images were obtained without IV contrast administration. COMPARISON: COMPARISON : None. FINDINGS: Bone and bone marrow: No acute osseous signal changes are seen. Mild degenerative changes are seen of the medial compartment, with at least mild irregular articular cartilage thinning. The patellofemoral compartment demonstrates moderate degenerative changes, with mild to severe articular cartilage thinning is seen, most prominent in the apex and medial facet of the patella. Effusion: No significant joint effusion is seen. No Vyas's or popliteal cyst is seen. Soft Tissues: No free or loculated fluid collection is seen. No soft tissue mass is noted. Menisci: A prominent apical tear of the body of the medial meniscus is seen, extending partially into the anterior horn. No lateral meniscal tear is seen No cruciate or collateral ligament tear is seen. Visualized extensor tendons appear intact. MRI/Lower Ext Joint Only (Routine) IMPRESSION: 1. Medial meniscal tear. 2. Degenerative changes as noted. Reading Location: [place] [address] CC: Dr. Berta Vargas MD Nicking Machine Operator: Signed Normal [facility] Insulin Levelon 06-07-2025 INSULIN,FASTING 32.6 uIU/mL High 2.6-24.9 [facility] Comment on above: Result Comment: Perf ormed at: CB - [facility] [address] [id number] Production Illustrator: Robert Bravo PhD, Phone: [phone] Performed By: #### L 583.7725, L3561.6511 #### [facility] Laboratory [address] [place] [address]. [place], [address] Absolute lymphocyte countOrd ered By: HEALTH ASSESSMENT on 06-06-2025 Lymphocytes Auto (Unsp spec) [#/Vol] 1.17 10*3/uL 0.83-4.51 [facility] Absolute neutrophil countOrd ered By: HEALTH ASSESSMENT on 06-06-2025 Neutrophils (Bld) [#/Vol] 3.7 10*3/uL 2.0-7.7 [facility] Absolute nucleated red blood cell countOrdered By: HEALTH ASSESSMENT on 06-06-2025 Nucleated RBC (Bld) [#/Vol] 0.00 10*3/uL 0-5 [facility] Anion gap in Serum or Plasma Ordered By: HEALTH ASSESSMENT on 06-06-2025 Anion gap [Moles/Vol] 11 mmol/L 5-15 [facility] BUN/creatinine ratioOrdered By: HEALTH ASSESSMENT on 06-06-2025 Urea nitrogen/Creatinine [Mass ratio] 22.5 mg/mg High 10-20 [facility] Bilirubin Test strip Ql (U)O rdered By: HEALTH ASSESSMENT on 06-06-2025 Bilirubin Ql (U) Negative Negative [facility] Bilirubin directOrdered By: HEALTH ASSESSMENT on 06-06-2025 Bilirubin.direct [Mass/Vol] 0.15 mg/dL 0.00-0.30 [facility] Bilirubin, totalOrdered By: HEALTH ASSESSMENT on 06-06-2025 Bilirubin [Mass/Vol] 0.44 mg/dL 0.00-1.30 [facility] Blood band neutrophil count as percentage of total leukocytesOrdered By: HEALTH ASSESSMENT on 06-06-2025 Band form neutrophils/100 WBC (Bld) 66.5 % 47-70 [facility] CBC, Employeeon 06-06-2025 Absolute Lymph 1.17 X10 3/uL Normal 0.83-4.51 [facility] Comment on above: Performed By: #### L 100.0200, L500.2900, L400.0100 #### [facility] [address] [place], [place], [address] Absolute Neut 3.7 X10 3/uL Normal 2.0-7.7 [facility] Comment on above: Performed By: #### L 100.0200, L500.2900, L400.0100 #### [facility] [address] [place], [address] Basophils/100 WBC (Bld) 1.4 % High 0-1 [facility] Comment on above: Performed By: #### L 100.0200, L500.2900, L400.0100 #### [facility] [address] [place], [address] Eosinophils/100 WBC (Bld) 2.9 % Normal 0-5 [facility] Comment on above: Performed By: #### L 100.0200, L500.2900, L400.0100 #### [facility] [address] [place], [address] Erythrocyte distribution width (RBC) [Ratio] 13.3 % Normal 11.6-14.6 [facility] Comment on above: Performed By: #### L 100.0200, L500.2900, L400.0100 #### [facility] [address] [place], [address] Hematocrit (Bld) [Volume fraction] 43.7 % Normal 37-47 [facility] Comment on above: Performed By: #### L 100.0200, L500.2900, L400.0100 #### [facility] [address] [place], [address] Hemoglobin (Bld) [Mass/Vol] 14.2 g/dL Normal 12.0-15.0 [facility] Comment on above: Performed By: #### L 100.0200, L500.2900, L400.0100 #### [facility] [address] [place], [address] Lymphocytes/100 WBC (Bld) 21.1 % Normal 19-41 [facility] Comment on above: Performed By: #### L 100.0200, L500.2900, L400.0100 #### [facility] [address] [place], [address] MCH (RBC) [Entitic mass] 29.0 pg Normal 27.0-32.0 [facility] Comment on above: Performed By: #### L 100.0200, L500.2900, L400.0100 #### [facility] [address] [place], [address] MCHC (RBC) [Mass/Vol] 32.5 g/dL Normal 32-36 [facility] Comment on above: Performed By: #### L 100.0200, L500.2900, L400.0100 #### [facility] [address] [place], [address] MCV (RBC) [Entitic vol] 89.2 fL Normal 81-99 [facility] Comment on above: Performed By: #### L 100.0200, L500.2900, L400.0100 #### [facility] [address] [place], [address] Monocytes/100 WBC (Bld) 7.6 % Normal 0-10 [facility] Comment on above: Performed By: #### L 100.0200, L500.2900, L400.0100 #### [facility] [address] [place], [address] Neutrophils/100 WBC (Bld) 66.5 % Normal 47-70 [facility] Comment on above: Performed By: #### L 100.0200, L500.2900, L400.0100 #### [facility] [address] [place], [address] NRBC # 0.00 10 3/uL Normal 0-5 [facility] Comment on above: Performed By: #### L 100.0200, L500.2900, L400.0100 #### [facility] [address] [place], [address] Nucleated RBC (Bld) [#/Vol] 0 10*3/uL Normal 0-5 [facility] Comment on above: Performed By: #### L 100.0200, L500.2900, L400.0100 #### [facility] [address] [place], [address] Platelet mean volume (Bld) [Entitic vol] 9.7 fL Normal 6.2-12.0 [facility] Comment on above: Performed By: #### L 100.0200, L500.2900, L400.0100 #### [facility] [address] [place], [address] Platelets (Bld) [#/Vol] 356 10*3/uL Normal 150-450 [facility] Comment on above: Performed By: #### L 100.0200, L500.2900, L400.0100 #### [facility] [address] [place], [address] RBC (Bld) [#/Vol] 4.90 10*6/uL Normal 4.2-5.4 [facility] Comment on above: Performed By: #### L 100.0200, L500.2900, L400.0100 #### [facility] [address] [place], [address] RDW SD 43.5 fl Normal 35.1-43.9 [facility] Comment on above: Performed By: #### L 100.0200, L500.2900, L400.0100 #### [facility] [address] [place], [address] WBC (Bld) [#/Vol] 5.5 10*3/uL Normal 4.4-11.0 [facility] Comment on above: Performed By: #### L 100.0200, L500.2900, L400.0100 #### [facility] [address] [place], [address] Calculated very low density lipoprotein (VLDL) cholesterol measurementOrdered By: HEALTH ASSESSMENT on 06-06-2025 Calculated very low density lipoprotein (VLDL) cholesterol measurement 15 mg/dL 5-40 [facility] Carbon dioxide, total [Moles /volume] in Central venous bloodOrdered By: HEALTH ASSESSMENT on 06-06-2025 CO2 [Moles/Vol] 24.3 mmol/L 21.0-32.0 [facility] Chloride assayOrdered By: HE ALTH ASSESSMENT on 06-06-2025 Chloride [Moles/Vol] 100 mmol/L 98-108 [facility] Employee Profile[employer] CHOL:HDL 4.20 Normal [facility] Comment on above: Order Comment: DR ABHISHEK ROBERTS ORDERED LIPID PANEL PLEASE SEND RESULTS TO [employer] Performed By: #### L 100.0200, L500.2900, L400.0100 #### [facility] [address] [place], [address] Cholesterol [Mass/Vol] 279 mg/dL High <=200 [facility] Comment on above: Order Comment: DR ABHISHEK ROBERTS ORDERED LIPID PANEL PLEASE SEND RESULTS TO [employer] Result Comment: Chol esterol level, Desirable <200 mg/dL Borderline high cholesterol 200-239 mg/dL High cholesterol >=240 mg/dL Recommendations of the NCEP Adult Treatment Panel for the following risk-cutoff thresholds for the [place] population. Performed By: #### L 100.0200, L500.2900, L400.0100 #### [facility] [address] [place], [address] Cholesterol in HDL [Mass/Vol] 66 mg/dL Normal [facility] Comment on above: Order Comment: DR ABHISHEK ROBERTS ORDERED LIPID PANEL PLEASE SEND RESULTS TO [employer] Result Comment: Gill onal Cholesterol Education Program (NCEP) guidelines: <40 mg/dL: Low HDL-cholesterol (major risk factor for CHD) >= 60 mg/dL: High HDL-cholesterol (negative risk factor for CHD) HDL-cholesterol is affected by a number of factors, e.g. smoking, exercise, hormones, sex and age. Performed By: #### L 100.0200, L500.2900, L400.0100 #### [facility] [address] [place], [address] Cholesterol in LDL [Mass/Vol] 198 mg/dL Normal [facility] Comment on above: Order Comment: DR ABHISHEK ROBERTS ORDERED LIPID PANEL PLEASE SEND RESULTS TO [facility] Result Comment: Bord xgbunp=181-561 mg/dL Higher Ywdt=821 mg/dL or greater Friedwald Equation for LDL-C Performed By: #### L 100.0200, L500.2900, L400.0100 #### [facility] [address] [place], [address] Cholesterol in VLDL [Mass/Vol] 15 mg/dL Normal 5-40 [facility] Comment on above: Order Comment: DR ABHISHEK ROBERTS ORDERED LIPID PANEL PLEASE SEND RESULTS TO [facility] Performed By: #### L 100.0200, L500.2900, L400.0100 #### [facility] [address] [place], [address] LDH 182 U/L Normal 84-246 [facility] Comment on above: Order Comment: DR ABHISHEK ROBERTS ORDERED LIPID PANEL PLEASE SEND RESULTS TO [facility] Performed By: #### L 100.0200, L500.2900, L400.0100 #### [facility] [address] [place], [address] Phosphate [Mass/Vol] 3.9 mg/dL Normal 2.7-4.5 [facility] Comment on above: Order Comment: DR ABHISHEK ROBERTS ORDERED LIPID PANEL PLEASE SEND RESULTS TO [facility] Performed By: #### L 100.0200, L500.2900, L400.0100 #### [facility] [address] [place], [address] Triglyceride [Mass/Vol] 76 mg/dL Normal [facility] Comment on above: Order Comment: DR ABHISHEK ROBERTS ORDERED LIPID PANEL PLEASE SEND RESULTS TO THEM - [employer] Result Comment: The drugs N-Acetylcysteine and Metamizole may falsely depress this assay. Normal range: <150 mg/dL Borderline High: 150-199 mg/dL High: 200-499 mg/dL Very High: >500 mg/dL Performed By: #### L 100.0200, L500.2900, L400.0100 #### [facility] [address] [place], [address] URIC 6.2 mg/dL High 2.6-6.0 [facility] Comment on above: Order Comment: DR ABHISHEK ROBERTS ORDERED LIPID PANEL PLEASE SEND RESULTS TO [employer] Result Comment: The drugs N-Acetylcysteine and Metamizole may falsely depress this assay. Performed By: #### L 100.0200, L500.2900, L400.0100 #### [facility] [address] [place], [address] Erythrocyte distribution wid th ratioOrdered By: HEALTH ASSESSMENT on 06-06-2025 Erythrocyte distribution width (RBC) [Ratio] 13.3 % 11.6-14.6 [facility] Erythrocyte distribution wid th standard deviationOrdered By: HEALTH ASSESSMENT on 06-06-2025 Erythrocyte distribution width (RBC) [Ratio] 43.5 fl 35.1-43.9 [facility] Glomerular filtration rate ( GFR) estimation/1.73 sq m using serum, plasma, or whole bOrdered By: HEALTH ASSESSMENT on 06-06-2025 GFR/1.73 sq M.predicted among non-blacks MDRD (S/P/Bld) [Vol rate/Area] 79 mL/min/{1.73_m2} >60 [facility] Comment on above: mL/min/1.73m2 CKD-EP I Creatinine Equation (2020) Hematocrit Auto (Bld) [Volum e fraction]Ordered By: HEALTH ASSESSMENT on 06-06-2025 Hematocrit (Bld) [Volume fraction] 43.7 % 37-47 [facility] Hemoglobin A1con 06-06-2025 HbA1c (Bld) [Mass fraction] 5.9 % High <=5.6 [facility] Comment on above: Result Comment: Norm al < 5.7 % Prediabetic 5.7 - 6.4 % Diabetic >or= 6.5 % Please note range changes. Performed By: #### L 501.2583, L3300.5337 #### [facility] [address] [place], [address] Hemoglobin A1c percentageOrd ered By: Berta Vargas on 06-06-2025 HbA1c (Bld) [Mass fraction] 5.9 % High <5.7 [facility] Comment on above: Normal < 5.7 % Predi abetic 5.7 - 6.4 % Diabetic >or= 6.5 % Please note range changes. Hemoglobin measurementOrdere d By: HEALTH ASSESSMENT on 06-06-2025 Hemoglobin (Bld) [Mass/Vol] 14.2 g/dL 12.0-15.0 [facility] Ketones Test strip Ql (U)Ord ered By: HEALTH ASSESSMENT on 06-06-2025 Ketones Ql (U) Negative Negative [facility] LDL calc ser/plasOrdered By: HEALTH ASSESSMENT on 06-06-2025 Cholesterol in LDL [Mass/Vol] 198 mg/dL [facility] Comment on above: Ybckbyttox=999-935 m g/dL & Higher Vfat=963 mg/dL or greaterFriedwald Equation for LDL-C Laboratory - Chemistry and C hemistry - challengeOrdered By: HEALTH ASSESSMENT on 06-06-2025 AST [Catalytic activity/Vol] 20 U/L <32 [facility] Lactate dehydrogenase (LDH) measurementOrdered By: HEALTH ASSESSMENT on 06-06-2025 LDH [Catalytic activity/Vol] 182 U/L 84-246 [facility] MCV (mean corpuscular volume ) determinationOrdered By: HEALTH ASSESSMENT on 06-06-2025 MCV (RBC) [Entitic vol] 89.2 fL 81-99 [facility] Mean corpuscular hemoglobin (MCH) determinationOrdered By: HEALTH ASSESSMENT on 06-06-2025 MCH (RBC) [Entitic mass] 29.0 pg 27.0-32.0 [facility] Mean corpuscular hemoglobin concentration (MCHC) determinationOrdered By: HEALTH ASSESSMENT on 06-06-2025 MCHC (RBC) [Mass/Vol] 32.5 g/dL 32-36 [facility] Mean platelet volume determi nationOrdered By: HEALTH ASSESSMENT on 06-06-2025 Platelet mean volume (Bld) [Entitic vol] 9.7 fL 6.2-12.0 [facility] Nitrite Test strip Ql (U)Ord ered By: HEALTH ASSESSMENT on 06-06-2025 Nitrite Ql (U) Negative Negative [facility] Nucleated red blood cell per centageOrdered By: HEALTH ASSESSMENT on 06-06-2025 Nucleated RBC/100 WBC (Bld) [Ratio] 0 % 0-5 [facility] [facility] Platelet countOrdered By: HE ALTH ASSESSMENT on 06-06-2025 Platelets (Bld) [#/Vol] 356 10*3/uL 150-450 [facility] Potassium measurement (mass/ volume)Ordered By: HEALTH ASSESSMENT on 06-06-2025 Potassium (Unsp spec) [Mass/Vol] 4.7 mmol/L 3.3-5.1 [facility] Protein Test strip Ql (U)Ord ered By: HEALTH ASSESSMENT on 06-06-2025 Protein Ql (U) 15 mg/dl High Negative [facility] RBC Auto (Bld) [#/Vol]Ordere d By: HEALTH ASSESSMENT on 06-06-2025 RBC (Bld) [#/Vol] 4.90 10*6/uL 4.2-5.4 [facility] Screening total cholesterol/ high density lipoprotein (HDL) cholesterol ratioOrdered By: HEALTH ASSESSMENT on 06-06-2025 Cholesterol.total/Chol esterol in HDL [Mass ratio] 4.20 {ratio} [facility] Serum creatinine measurement (mass/volume)Ordered By: HEALTH ASSESSMENT on 06-06-2025 Creatinine [Mass/Vol] 0.86 mg/dL 0.70-1.20 [facility] Serum globulin measurementOr dered By: HEALTH ASSESSMENT on 06-06-2025 Globulin (S) [Mass/Vol] 3.2 g/dL 2.2-4.2 [facility] Serum glucose measurement (m ass/volume)Ordered By: HEALTH ASSESSMENT on 06-06-2025 Glucose [Mass/Vol] 97 mg/dL 70-99 [facility] Serum or plasma alanine torres otransferase (ALT) measurementOrdered By: HEALTH ASSESSMENT on 06-06-2025 ALT [Catalytic activity/Vol] 20 U/L <35 [facility] Serum or plasma albumin natty urement (mass/volume)Ordered By: HEALTH ASSESSMENT on 06-06-2025 Albumin [Mass/Vol] 4.3 g/dL 3.5-5.0 [facility] Serum or plasma albumin/glob ulin mass ratioOrdered By: HEALTH ASSESSMENT on 06-06-2025 Albumin/Globulin [Mass ratio] 1.4 {ratio} 0.9-2.4 [facility] Serum or plasma alkaline monica sphatase measurementOrdered By: HEALTH ASSESSMENT on 06-06-2025 ALP [Catalytic activity/Vol] 123 U/L High 35-104 [facility] Serum or plasma calcium natty urement (mass/volume)Ordered By: HEALTH ASSESSMENT on 06-06-2025 Calcium [Mass/Vol] 10.0 mg/dL 7.6-11.0 [facility] Serum or plasma cholesterol in HDL measurement (mass/volume)Ordered By: HEALTH ASSESSMENT on 06-06-2025 Cholesterol in HDL [Mass/Vol] 66 mg/dL >40 [facility] Comment on above: National Cholesterol Education Program (NCEP) guidelines:<40 mg/dL: Low HDL-cholesterol (major risk factor for CHD)>= 60 mg/dL: High HDL-cholesterol (negative risk factor for CHD)HDL-cholesterol is affected by a number of factors, e.g. smoking, exercise, hormones, sex and age. Serum or plasma cholesterol measurement (mass/volume)Ordered By: HEALTH ASSESSMENT on 06-06-2025 Cholesterol [Mass/Vol] 279 mg/dL High <201 [facility] Comment on above: Cholesterol level, D esirable <200 mg/dLBorderline high cholesterol 200-239 mg/dLHigh cholesterol >=240 mg/dLRecommendations of the NCEP Adult Treatment Panel for the following risk-cutoff thresholds for the [place] population. Serum or plasma insulin natty urement (mass/volume)Ordered By: Berta Vargas on 06-06-2025 Insulin [Mass/Vol] 32.6 uIU/mL High 2.6-24.9 [facility] Comment on above: Performed at: - L [address] [id number] Director: Robert Bravo PhD, Phone: [phone] Serum or plasma urea nitroge n measurement (mass/volume)Ordered By: HEALTH ASSESSMENT on 06-06-2025 Urea nitrogen [Mass/Vol] 19 mg/dL 4-19 [facility] Serum or plasma uric acid me asurement (mass/volume)Ordered By: HEALTH ASSESSMENT on 06-06-2025 Urate [Mass/Vol] 6.2 mg/dL High 2.6-6.0 [facility] Comment on above: The drugs N-Acetylcy steine and Metamizole may falsely depress this assay. Sodium levelOrdered By: HEAL ASSESSMENT on 06-06-2025 Sodium [Moles/Vol] 135 mmol/L 133-145 [facility] Total proteinOrdered By: [facility] ASSESSMENT on 06-06-2025 Protein [Mass/Vol] 7.5 g/dL 5.9-8.4 [facility] Triglycerides measurementOrd ered By: HEALTH ASSESSMENT on 06-06-2025 Triglyceride [Mass/Vol] 76 mg/dL <199 [facility] Comment on above: The drugs N-Acetylcy steine and Metamizole may falsely depress this assay. Normal range: <150 mg/dLBorderline High: 150-199 mg/dLHigh: 200-499 mg/dLVery High: >500 mg/dL Urinalysis, Employeeon 06-06 BILIRUBIN URINE Negative Normal Negative [facility] Comment on above: Order Comment: Urine , Random Performed By: #### L 100.0200, L500.2900, L400.0100 #### [facility] [address] [place], [place], [id number] Clarity (U) Clear Normal Clear [facility] Comment on above: Order Comment: Urine , Random Performed By: #### L 100.0200, L500.2900, L400.0100 #### [facility] [address] [place], [address] Color (U) Yellow Normal Yellow [facility] Comment on above: Order Comment: Urine , Random Performed By: #### L 100.0200, L500.2900, L400.0100 #### [facility] [address] [place], [address] GLUCOSE, UR Normal Normal Normal [facility] Comment on above: Order Comment: Urine , Random Performed By: #### L 100.0200, L500.2900, L400.0100 #### [facility] [address] [place], [address] KETONE UR Negative Normal Negative [facility] Comment on above: Order Comment: Urine , Random Performed By: #### L 100.0200, L500.2900, L400.0100 #### [facility] [address] [place], [address] LEUK ESTERASE 25 /ul Abnormal Negative [facility] Comment on above: Order Comment: Urine , Random Performed By: #### L 100.0200, L500.2900, L400.0100 #### [facility] [address] [place], [address] Nitrite Ql (U) Negative Normal Negative [facility] Comment on above: Order Comment: Urine , Random Performed By: #### L 100.0200, L500.2900, L400.0100 #### [facility] [address] [place], [address] OCCULT BLOOD-UR Negative Normal Negative [facility] Comment on above: Order Comment: Urine , Random Performed By: #### L 100.0200, L500.2900, L400.0100 #### [facility] [address] [place], [address] pH UR 5.0 Normal 5.0 - 8.0 [facility] Comment on above: Order Comment: Urine , Random Performed By: #### L 100.0200, L500.2900, L400.0100 #### [facility] [address] [place], [address] PROT DIPSTX 15 mg/dl Abnormal Negative [facility] Comment on above: Order Comment: Urine , Random Performed By: #### L 100.0200, L500.2900, L400.0100 #### [facility] [address] [place], [address] SP.GR. DIPSTX 1.015 Normal 1.002-1.03 0 [facility] Comment on above: Order Comment: Urine , Random Performed By: #### L 100.0200, L500.2900, L400.0100 #### [facility] [address] [place], [address] UROBILI Normal Normal Normal [facility] Comment on above: Order Comment: Urine , Random Performed By: #### L 100.0200, L500.2900, L400.0100 #### [facility] [address] [place], [address] Urine clarityOrdered By: Shreya [facility] ASSESSMENT on 06-06-2025 Clarity (U) Clear Clear [facility] Urine color determinationOrd ered By: HEALTH ASSESSMENT on 06-06-2025 Color (U) Yellow Yellow [facility] Urine glucose detectionOrder ed By: HEALTH ASSESSMENT on 06-06-2025 Glucose Ql (U) Normal mg/dl Normal [facility] Urine leukocyte esterase det ection by dipstickOrdered By: HEALTH ASSESSMENT on 06-06-2025 Leukocyte esterase Test strip Ql (U) 25 /ul High Negative [facility] Urine pHOrdered By: HEALTH A SSESSMENT on 06-06-2025 pH (U) 5.0 [pH] 5.0 - 8.0 [facility] Urine specific gravity measu rementOrdered By: HEALTH ASSESSMENT on 06-06-2025 Specific gravity (U) [Rel density] 1.015 1.002-1.03 0 [facility] Urine urobilinogen measureme ntOrdered By: HEALTH ASSESSMENT on 06-06-2025 Urobilinogen Ql (U) Normal mg/dl Normal [facility] White blood cell (WBC) count Ordered By: HEALTH ASSESSMENT on 06-06-2025 WBC (Bld) [#/Vol] 5.5 10*3/uL 4.4-11.0 [facility] Chest PA and Lateralon 01-16 Chest PA and Lateral [facility] Imaging Services [address] [place], [place] [address] Chest PA and Lateral MR#: [id number] Acct: [id number] Name: MEKA CAMPOS Rep #: [id number] : 1965 F 59 From: Jonatan Hussein PCP: Dr. Berta Vargas MD Status: REG CLI Study: Chest PA and Lateral Date of Exam: 01/16/25 Exam# [id number] Ordering Dr: Berta Vargas MD EXAM: CHEST PA AND LATERAL CLINICAL HISTORY: Asthma. COMPARISON: None. TECHNIQUE: PA and lateral views of the chest obtained. FINDINGS: The cardiac silhouette is not enlarged. No pulmonary parenchymal consolidative opacities. No pneumothorax or significant pleural effusion. Mild thoracic spine degenerative changes are noted. No acute osseous abnormality is identified. RAD/Chest PA and Lateral IMPRESSION: No radiographic evidence of acute cardiopulmonary disease. Reading Location: [address] CC: Dr. Berta Vargas MD Nicking Machine Operator: Signed Normal [facility] PAP IG HPV APTIMA 16/18,45on 09-30-2024 ADEQ Comment Normal . [facility] Comment on above: Order Comment: Speci men Comment: [id number] Comment: Source.............CervixSpecimen Comment: Other..............Post MenopausalSpecimen Comment: No. of containers..01 ThinPrep Vial Result Comment: Sati sfactory for evaluation. No endocervical component is identified. Performed By: #### L 501.9985, L3300.3500 #### [facility] [address] [place], [place], [address] COMM . Normal . [facility] Comment on above: Order Comment: Speci men Comment: [id number] Comment: Source.............CervixSpecimen Comment: Other..............Post MenopausalSpecimen Comment: No. of containers..01 ThinPrep Vial Performed By: #### L 501.9985, L3300.3500 #### [facility] [address] [place], [place], [address] COMMENT Comment Normal . [facility] Comment on above: Order Comment: Speci men Comment: [id number] Comment: Source.............CervixSpecimen Comment: Other..............Post MenopausalSpecimen Comment: No. of containers..01 ThinPrep Vial Result Comment: This liquid based ThinPrep(R) pap test was screened with the use of an image guided system. Performed By: #### L 501.9985, L3300.3500 #### [facility] [address] [place], [address] DIAG Comment Normal . [facility] Comment on above: Order Comment: Speci men Comment: [id number] Comment: Source.............CervixSpecimen Comment: Other..............Post MenopausalSpecimen Comment: No. of containers..01 ThinPrep Vial Result Comment: NEGA TIVE FOR INTRAEPITHELIAL LESION OR MALIGNANCY. Performed By: #### L 501.9985, L3300.3500 #### [facility] [address] [place], [place], [address] HPV APTIMA, HR Negative Normal Negative [facility] Comment on above: Order Comment: Speci men Comment: [id number] Comment: Source.............CervixSpecimen Comment: Other..............Post MenopausalSpecimen Comment: No. of containers..01 ThinPrep Vial Result Comment: This nucleic acid amplification test detects fourteen high- risk HPV types (16,18,31,33,35,39,45,51,52,56,58,59,66,68) without differentiation. Performed By: #### L 501.9985, L3300.3500 #### [facility] [address] [place], [address] HPV Sara Rfx Comment Normal . [facility] Comment on above: Order Comment: Speci men Comment: [id number] Comment: Source.............CervixSpecimen Comment: Other..............Post MenopausalSpecimen Comment: No. of containers..01 ThinPrep Vial Result Comment: Crit eria not met, HPV Genotype not performed. Performed at: - [address] [id number] Production Illustrator: Rosa Michel MD, Phone: [phone] Performed at: = - [facility] [id number] Production Illustrator: Rosa Michel MD, Phone: [phone] Performed By: #### L 501.9985, L3300.3500 #### [facility] [address] [place], [address] PAPSMR Comment Normal . [facility] Comment on above: Order Comment: Speci men Comment: [id number] Comment: Source.............CervixSpecimen Comment: Other..............Post MenopausalSpecimen Comment: No. of containers..01 ThinPrep Vial Result Comment: The Pap smear is a screening test designed to aid in the detection of premalignant and malignant conditions of the uterine cervix. It is not a diagnostic procedure and should not be used as the sole means of detecting cervical cancer. Both false-positive and false-negative reports do occur. Performed By: #### L 501.9985, L3300.3500 #### [facility] [address] [place], [address] PERFORM Comment Normal . [facility] Comment on above: Order Comment: Speci men Comment: [id number] Comment: Source.............CervixSpecimen Comment: Other..............Post MenopausalSpecimen Comment: No. of containers..01 ThinPrep Vial Result Comment: Sherri Burden, Staff Auditor (ASCP) Performed By: #### L 501.9985, L3300.3500 #### [facility] [address] [place], [address] SCRN MAMM (CAD)W/CASTILLO BILATo n 09-25-2024 SCRN MAMM (CAD)W/CASTILLO BILAT [facility] Imaging Services [address] [place], [place] [address] SCRN MAMM (CAD)W/CASTILLO BILAT MR#: [id number] Acct: [id number] Name: MEKA CAMPOS Rep #: [id number] : 1965 F 59 From: Aniket Baugh MD PCP: Dr. Berta Vargas MD Status: REG [facility] Study: SCRN MAMM (CAD)W/CASTILLO BILAT Date of Exam: 08/31 05/22 Exam# [id number] Ordering Dr: Rose Laird Henny [id number] MAMMOGRAPHY - BILATERAL SCREENING 3-D TOMOSYNTHESIS REASON FOR EXAM: Female, 59 years old. Routine screening PERTINENT HISTORY: Aunts with breast cancer.. TECHNIQUE: 2-D mammograms and 3-D Tomosynthesis of the breast (s) were performed. CAD was performed. COMPARISON: 10/16/2018 FINDINGS: The breast composition is composed of scattered fibroglandular density. Scattered benign calcifications are seen. No dense spiculated masses or suspicious microcalcifications are identified. No architectural distortion is identified. There is no skin thickening or retraction. There has been no significant change since the prior study. BI/SCRN MAMM (CAD)W/CASTILLO BILAT IMPRESSION: No mammographic signs of malignancy. Routine yearly mammograms recommended. ASSESSMENT CATEGORY: BIRADS Category 1: Negative. A letter regarding these results will be sent to the patient by the facility within 30 days. FOLLOW UP RECOMMENDATION: Yearly follow up mammogram recommended. (A) Approximately 10% of breast cancers are not detected by mammography. A normal mammogram should not delay biopsy of a clinically suspicious abnormality. Electronically Signed: Kurtis Baugh MD at 14:46 EST Reading Location ID and State: [address] [place] [address] , Service support , CC: TRACEY Laird; Dr. Berta Vargas MD Nicking Machine Operator: Signed Normal [facility] Rod Straightener Office Visit Reporton 09-20-2024 Rod Straightener Office Visit Report [facility] [address], [address] [place] [address] OFFICE VISIT Date of Service: 09/20/24 MR#: [id number] Acct: [id number] Name: MEKA CAMPOS Rep #: [id number] : 1965 Provider: TRACEY [facility] Age/Sex: 59/F Location: [facility] Status: Signed Intake Vital Signs 09/19/23 15:17 09/20/24 09:39 09/20/24 09:45 Height 5 ft 7 in 5 ft 7 in 5 ft 7 in Weight: 202 lb BMI 31.6 BP 122/83 H Intake Visit 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: Annual (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 Intelligence Officer Required: No Is patient in pain?: No Allergies sulfamethoxazole (From Bactrim) Allergy (Intermediate, Verified 09/20/24 09:39) Rash trimethoprim (From Bactrim) Allergy (Intermediate, Verified 09/20/24 09:39) Rash Seasonal Allergies: Uncoded Allergy (Mild, Verified 09/20/24 09:39) Other Sulfa (Sulfonamide Antibiotics) Allergy (Mild, Verified 09/20/24 09:39) Rash Medications ???Medication ???Instructions ???Recorded ???Confirmed ???Type multivitamin 1 tab PO DAILY 07/31/23 09/20/24 History cholecalciferol (vitamin D3) 10 10 mcg PO QDAY 09/20/24 09/20/24 History mcg (400 unit) capsule multivitamin 1 tab PO QAM 09/20/24 09/20/24 History Is last menstrual period known: No Post menopausal: Yes Patient : No : No [facility] Medical History Right knee pain Surgical History H/O LEEP H/O: Family History Aunt Breast cancer Grandfather Heart disease Aunt Breast cancer Sister Type 2 diabetes mellitus History of multiple strokes Grandfather Heart disease Aunt Leukemia Social History adopted: No household members: family housing: house current occupational status: employed 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 Last PAP: due History of abnormal PAP: Last mammogram: 2022 History of abnormal mammogram: Colon cancer screening: up to date Other preventative health care screenings: tee Female Reproductive History Questions: sexually active: Yes, dyspareunia: No and PCB: No ROS Const Constitutional: Reports system reviewed and no additional complaints, except as documented Cardio Card: Reports system reviewed and no additional complaints, except as documented Resp Resp: Reports system reviewed and no additional complaints, except as documented GI GI: Reports system reviewed and no additional complaints, except as documented : Reports system reviewed and no additional complaints, except as documented; Denies difficulty voiding, dysuria or urinary frequency Skin Skin/Breast: Reports system reviewed and no additional complaints, except as documented Neuro Neuro: Reports system reviewed and no additional complaints, except as documented Psych Psych: Reports system reviewed and no additional complaints, except as documented; Denies anhedonia, anxiety or depression Exam Const General: cooperative, healthy appearing, comfortable and no acute distress Orientation: alert, awake and oriented x3 Neck Neck: normal visual inspection and full ROM Thyroid: thyroid normal Chest Breast inspection: normal inspection of the breasts and normal inspection of the axillae Breast palpation: normal palpation of the breasts and normal palpation of the axillae Resp Effort Inspection: normal respiratory effort, able to speak in complete sentences and symmetric chest movement GI Inspection: normal to inspection Palpation: soft Rectal Exam: visual inspection normal External Female Exam: normal external appearance and normal appearance of the urethra Urethra: normal appearance of the urethra Speculum Exam - Vagina: normal appearance of the vagina and normal vaginal discharge Speculum Exam - Cervix: normal appearance of the cervix and nontender Bimanual Exam- Vagina Uterus: normal bimanual exam, normal palpation, uterine size normal, No tender and non-tender Bimanual Exam- Adnexa, other: normal Pelvic Support: normal Skin General: no rashes or lesions noted Neuro General: patient alert, patient awake and patient oriented x3 Cognition: normal cognition Speech: speech normal Gait: normal gait Extrem General: normal to inspection and full ROM Psych Appearance: grossly normal and well kempt Mental (more content not included)... Normal [facility] Lower Ext Joint Only (Routin e)on 09-12-2024 Lower Ext Joint Only (Routine) [facility] Imaging Services [address] [place] [address] Lower Ext Joint Only (Routine) MR#: [id number] Acct: [id number] Name: MEKA CAMPOS Rep #: [id number] : 1965 F 59 From: Adal La MD PCP: Dr. Berta Vargas MD Status: REG CLI Study: Lower Ext Joint Only (Routine) Date of Exam: 11/12/23 Exam# [id number] Ordering Dr: Berta Vargas MD [id number] STUDY: MRI RIGHT KNEE REASON FOR EXAM: Female, 59 years old. Right anterior knee pain since 07/2023. TECHNIQUE: Standardized fat and water weighted pulse sequences were obtained in all 3 orthogonal planes. COMPARISON: Right knee radiographs dated 07/31/2023. FINDINGS: There is a horizontal tear of the posterior horn of the medial meniscus (sagittal PD series 3 image 31). There is peripheral subluxation/extrusion of the body of the medial meniscus (coronal T2 series 6 images 19-20). Normal hyaline cartilage of the medial femorotibial compartment. Normal medial femoral condyle and tibial plateau. Normal medial collateral ligamentous complex (MCL). Normal distal semimembranosus, gracilis and semitendinosus tendons. Normal lateral meniscus. Normal hyaline cartilage of the lateral femorotibial compartment. Normal lateral femoral condyle and tibial plateau. Normal proximal tibiofibular articulation. Normal lateral collateral ("fibular") ligament. Normal popliteus tendon. Normal biceps femoris tendon. Normal anterior cruciate ligament (ACL). Normal posterior cruciate ligament (PCL). 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 Congruent patellofemoral articulation. Normal medial and lateral patellar retinaculum. Normal quadriceps tendon. Normal patellar tendon. Normal Hoffa''s fat pad. There is no joint effusion. There is no popliteal cyst. There is mild subcutaneous soft tissue edema anterior to the patellar tendon. There is no acute fracture. MRI/Lower Ext Joint Only (Routine) IMPRESSION: Horizontal tear of the posterior horn of the medial meniscus. Peripheral subluxation/extrusion of the body of the medial meniscus. 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 Mild subcutaneous soft tissue edema anterior to the patellar tendon. No acute ligamentous injury. Electronically Signed: Adal La MD at 11:53 EST , CC: Dr. Berta Vargas MD Nicking Machine Operator: Signed Normal [facility] CNOVon 08-03-2023 [facility] Office Visit ([facility] ) -------- MEKA CAMPOS ([id number]) 1965 F Date Time Provider Department 08/03/23 4:00 PM NURSE PEDS [place] [facility] During your visit today, we recorded the following information about you: Allergies As of Date: 08/03/2023 Noted Allergy Reaction BACTRIM (SULFAMETHOXAZOLE-TRIMET H*12/09/2020 4 - Hives SULFA (SULFONAMIDE ANTIBIOTICS) 12/09/2020 4 - Hives Date Reviewed: 12/09/2020 Reviewed by: Mason Mayorga - Fully Assessed Reason for Visit: flu vaccine [Other] Primary Visit Diagnosis:Encounter for immunization [Z23] Order(s):INFLUENZA VACCINE, AGE 6 MO - 64 YR, QUADRIVALENT (AFLURIA, FLULAVAL, FLUZONE) [[id number]] Order #: [id number] Prescriptions as of 08/03/2023 - cholecalciferol, vitamin D3, (VITAMIN D3 ORAL) Take by mouth. - mv,calcium,min/iron/foli c/vitK (ONE-A-DAY WOMEN'S COMPLETE ORAL) Take by mouth. - Carboxymethylcellulose Sodium (THERATEARS) 0.25 % dpet Use 1 Drop in both eyes as needed. - MULTI-VITAMIN ORAL 1 tablet daily Problem List As Of Date 08/03/2023 Noted Resolved ABNORMAL PAP SMEAR-CERVIX [795.0] HUMAN PAPILLOMAVIRUS NOS [B97.7] GENITAL HERPES [054.1] UNSP ABNORMAL MAMMOGRAM [R92.8] 10/21/2008 Encounter Status:Closed by SHOLA RAMOS LPN on 08/03/[address] [facility] Absolute lymphocyte countOrd ered By: HEALTH ASSESSMENT on 07-31-2023 Lymphocytes Auto (Unsp spec) [#/Vol] 1.53 10*3/uL 0.83-4.51 [facility] Absolute reticulocyte countO rdered By: HEALTH ASSESSMENT on 07-31-2023 Reticulocytes (Bld) [#/Vol] 0.00 10*3/uL 0-5 [facility] Basophil percentageOrdered B y: HEALTH ASSESSMENT on 07-31-2023 Basophil percentage 3.5 mg/dL 2.5-4.9 [facility] Bilirubin [Mass/Vol] 0.60 mg/dL 0.20-1.00 [facility] Comment on above: For patients on eltr ombopag therapy, use of Dimension [place] TBIL is not recommended. Chloride [Moles/Vol] 105 mmol/L 98-107 [facility] Cholesterol [Mass/Vol] 300 mg/dL <200 [facility] Comment on above: <200 mg/dL Desirable 200-240 mg/dL Borderline >240 mg/dL High Risk Glucose [Mass/Vol] 98 mg/dL 74-106 [facility] LDH [Catalytic activity/Vol] 196 U/L 84-246 [facility] Neutrophils (Bld) [#/Vol] 3.2 10*3/uL 2.0-7.7 [facility] Potassium [Moles/Vol] 4.3 mmol/L 3.5-5.1 [facility] Protein [Mass/Vol] 7.7 g/dL 6.4-8.2 [facility] Sodium [Moles/Vol] 137 mmol/L 136-145 [facility] Triglyceride [Mass/Vol] 84 mg/dL <199 [facility] Comment on above: The drugs N-Acetylcy steine and Metamizole may falsely depress this assay.Serum Triglycerides Reference Interval Normal <150 mg/dL Borderline high 150 - 199 mg/dL High 200 - 499 mg/dL Very High > or = 500 mg/dL WBC (Bld) [#/Vol] 5.6 10*3/uL 4.4-11.0 [facility] Bilirubin Test strip Ql (U)O rdered By: HEALTH ASSESSMENT on 07-31-2023 Bilirubin Ql (U) Negative Negative [facility] Blood erythrocytes count (nu mber/volume)Ordered By: HEALTH ASSESSMENT on 07-31-2023 RBC (Bld) [#/Vol] 4.94 10*6/uL 4.2-5.4 [facility] Blood hemoglobin measurement (mass/volume)Ordered By: HEALTH ASSESSMENT on 07-31-2023 Hemoglobin (Bld) [Mass/Vol] 14.2 g/dL 12.0-15.0 [facility] Blood platelet mean volumeOr dered By: HEALTH ASSESSMENT on 07-31-2023 Platelet mean volume (Bld) [Entitic vol] 8.6 fL 6.2-12.0 [facility] Determination of erythrocyte mean corpuscular volume (MCV)Ordered By: HEALTH ASSESSMENT on 07-31-2023 MCV (RBC) [Entitic vol] 88.3 fL 81-99 [facility] Direct bilirubinOrdered By: HEALTH ASSESSMENT on 07-31-2023 Bilirubin.direct [Mass/Vol] 0.15 mg/dL 0.00-0.30 [facility] Hematocrit Auto (Bld) [Volum e fraction]Ordered By: HEALTH ASSESSMENT on 07-31-2023 Hematocrit (Bld) [Volume fraction] 43.6 % 37-47 [facility] Ketones Test strip Ql (U)Ord ered By: HEALTH ASSESSMENT on 07-31-2023 Ketones Ql (U) Negative Negative [facility] Laboratory - Chemistry and C hemistry - challengeOrdered By: HEALTH ASSESSMENT on 07-31-2023 ALP [Catalytic activity/Vol] 118 U/L 45-117 [facility] ALT [Catalytic activity/Vol] 30 U/L 13-56 [facility] Cholesterol.total/Chol esterol in HDL [Mass ratio] 4.10 {ratio} [facility] CO2 [Moles/Vol] 26.0 mmol/L 21.0-32.0 [facility] Globulin (S) [Mass/Vol] 4.1 g/dL 2.2-4.2 [facility] Urea nitrogen/Creatinine [Mass ratio] 18.5 mg/mg 10-20 [facility] Laboratory - Hematology and Cell countsOrdered By: HEALTH ASSESSMENT on 07-31-2023 Erythrocyte distribution width (RBC) [Entitic vol] 42.3 fL 35.1-43.9 [facility] Erythrocyte distribution width (RBC) [Ratio] 13.1 % 11.6-14.6 [facility] MCH (RBC) [Entitic mass] 28.7 pg 27.0-32.0 [facility] Nucleated RBC/100 WBC (Bld) [Ratio] 0 % 0-5 [facility] MCHC Auto (RBC) [Mass/Vol]Or dered By: HEALTH ASSESSMENT on 07-31-2023 MCHC (RBC) [Mass/Vol] 32.6 g/dL 32-36 [facility] Nitrite Test strip Ql (U)Ord ered By: HEALTH ASSESSMENT on 07-31-2023 Nitrite Ql (U) Negative Negative [facility] No Panel InformationOrdered By: HEALTH ASSESSMENT on 07-31-2023 Estimated GFR (MDRD) Amer 87 mL/min >60 [facility] Comment on above: GFR Calc Estimated GFR (MDRD) Non-Af Amer 72 mL/min >60 [facility] Comment on above: Non- GFR Calc Platelets bldOrdered By: [facility] ASSESSMENT on 07-31-2023 Platelets (Bld) [#/Vol] 343 10*3/uL 150-450 [facility] Protein Test strip Ql (U)Ord ered By: HEALTH ASSESSMENT on 07-31-2023 Protein Ql (U) Negative Negative [facility] Segmented neutrophils/100 WB C Auto (Bld)Ordered By: HEALTH ASSESSMENT on 07-31-2023 Segmented neutrophils/100 WBC (Bld) 57.6 % 47-70 [facility] Serum or plasma albumin natty urement (mass/volume)Ordered By: HEALTH ASSESSMENT on 07-31-2023 Albumin [Mass/Vol] 3.6 g/dL 3.2-5.0 [facility] Serum or plasma albumin/glob ulin mass ratioOrdered By: HEALTH ASSESSMENT on 07-31-2023 Albumin/Globulin [Mass ratio] 0.9 {ratio} 0.9-2.4 [facility] Serum or plasma calcium natty urement (mass/volume)Ordered By: HEALTH ASSESSMENT on 07-31-2023 Calcium [Mass/Vol] 9.1 mg/dL 8.5-10.1 [facility] Serum or plasma cholesterol in HDL measurement (mass/volume)Ordered By: HEALTH ASSESSMENT on 07-31-2023 Cholesterol in HDL [Mass/Vol] 73 mg/dL >40 [facility] Comment on above: The drugs N-Acetylcy steine and Metamizole may falsely depress this assay. Reference Range HDL <40 mg/dL Low HDL Cholesterol HDL >or= 60 mg/dL High HDL Cholesterol Serum or plasma cholesterol in VLDL measurement (mass/volume)Ordered By: HEALTH ASSESSMENT on 07-31-2023 Cholesterol in VLDL [Mass/Vol] 17 mg/dL 5-40 [facility] Serum or plasma creatinine m easurement (mass/volume)Ordered By: HEALTH ASSESSMENT on 07-31-2023 Creatinine [Mass/Vol] 0.86 mg/dL 0.55-1.02 [facility] Comment on above: The validity of the calculated GFR & GFRAA in patients over 70 years has not been determined. Clinical correlation is essential. Serum or plasma low density lipoprotein (LDL) cholesterol measurement (mass/volume)Ordered By: HEALTH ASSESSMENT on 07-31-2023 Cholesterol in LDL [Mass/Vol] 210 mg/dL 0-130 [facility] Serum or plasma urea nitroge n measurement (mass/volume)Ordered By: HEALTH ASSESSMENT on 07-31-2023 Urea nitrogen [Mass/Vol] 16 mg/dL 7-18 [facility] Serum or plasma uric acid me asurement (mass/volume)Ordered By: HEALTH ASSESSMENT on 07-31-2023 Urate [Mass/Vol] 5.4 mg/dL 2.6-6.0 [facility] Comment on above: The drugs N-Acetylcy steine and Metamizole may falsely depress this assay. Thin prep Papanicolaou smear with manual screeningOrdered By: HEALTH ASSESSMENT on 07-31-2023 Thin prep Papanicolaou smear with manual screening 19 U/L 15-37 [facility] Thin prep Papanicolaou smear with manual screening 6 5-15 [facility] Urine blood detectionOrdered By: HEALTH ASSESSMENT on 07-31-2023 RBC Ql (U) Negative Negative [facility] Urine clarityOrdered By: HEShreya LT ASSESSMENT on 07-31-2023 Clarity (U) Clear Clear [facility] Urine color determinationOrd ered By: HEALTH ASSESSMENT on 07-31-2023 Color (U) Yellow Yellow [facility] Urine glucose detectionOrder ed By: HEALTH ASSESSMENT on 07-31-2023 Glucose Ql (U) Normal mg/dl Normal [facility] Urine leukocyte esterase det ection by dipstickOrdered By: HEALTH ASSESSMENT on 07-31-2023 Leukocyte esterase Test strip Ql (U) 25 /ul Negative [facility] Urine pHOrdered By: HEALTH A SSESSMENT on 07-31-2023 pH (U) 6.0 [pH] 5.0 - 8.0 [facility] Urine specific gravity measu rementOrdered By: HEALTH ASSESSMENT on 07-31-2023 Specific gravity (U) [Rel density] 1.015 1.002-1.03 0 [facility] Urobilinogen Auto test strip Ql (U)Ordered By: HEALTH ASSESSMENT on 07-31-2023 Urobilinogen Ql (U) Normal mg/dl Normal [facility] Blood Pressure Cuff Sizeon 0 12-23-2022 Adult depression screening assessment No [facility] Work Phone: Fall risk assessment a) No falls within the last year [facility] Work Phone: Tobacco use status CPHS b) No [facility] Work Phone: Blood Pressure Cuff Size Adult [facility] Work Phone: Office Visit (Internal Medic ine)on 12-23-2022 Follow-up visit Diagnoses/Problems Health Maintenance/Risks Encounter for preventive health examination (V70.0) (Z00.00) Assessed Class 1 obesity with body mass index (BMI) of 33.0 to 33.9 in adult (278.00,V85.33) (E66.9,Z68.33) Encounter for screening mammogram for breast cancer (V76.12) (Z12.31) Orders Abnormality of palate Otolaryngology - General Referral Evaluation and Treatment Evaluate AND Treat Status: Hold For - Scheduling Requested for: 23Dec2022 Ordered;For: Abnormality of palate; Ordered By: Scar Apodaca Performed: Due: 23Mar2023 Encounter for screening mammogram for breast cancer Mamm - Screening Mammogram w/ Tomosynthesis; Status:Hold For - Scheduling; Requested for:23Dec2022; Perform: Radiology Services Imaging; Due:23Mar2023;Ordered; For:Encounter for screening mammogram for breast cancer; Ordered By:Scar Apodaca; Radiologist to Determine Optimal Study : Y What are the patient's signs and symptoms ? : Annual Screening Mammogram Eye exam, routine Ophthalmology - General Referral Evaluation and Treatment Evaluate AND Treat Family history of 6 members of glaucoma, high risk Status: Hold For - Scheduling Requested for: 23Dec2022 Ordered;For: Eye exam, routine; Ordered By: Scar Apodaca Performed: Due: 23Mar2023 Skin exam for malignant neoplasm Dermatology Referral Evaluation and Treatment Evaluate AND Treat Dr Mcmahon Status: Hold For - Scheduling Requested for: 23Dec2022 Ordered;For: Skin exam for malignant neoplasm; Ordered By: Scar Apodaca Performed: Due: 23Mar2023 Women's annual routine gynecological examination Obstetrics and Gynecology Referral Evaluation and Treatment Evaluate AND Treat Status: Hold For - Scheduling Requested for: 23Dec2022 Ordered;For: Women's annual routine gynecological examination; Ordered By: Scar Apodaca Performed: Due: 23Mar2023 Provider Impressions Immunizations: Influenza Vaccine: 2021 Prevnar 13 Vaccine -- Pneumovax 23 Vaccine -- Shingrix Vaccine: recommended COVID: 3 Health Maintenance: Breast Cancer screenin, will order Bone Density: -- Cervical Cancer Screening: will see interior design program chair, up to date Colon Cancer Screening 2019 1. Will have labs drawn with [facility] including cbc, cmp and lipid panel 2. Will order mammo 3. Will see interior design program chair for pap 4. Colonoscopy in 2019 Chief Complaint 57 y/o female presents for annual wellness History of Present IllnessPatient is here today for annual wellness. 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 Review of Systems Constitutional: no fever, no chills, not feeling poorly, not feeling tired, no recent weight gain and no recent weight loss. ENT: no earache, no hearing loss, no nosebleeds, no nasal discharge, no sore throat and no hoarseness. Cardiovascular: the heart rate was not slow, the heart rate was not fast, no chest pain, no palpitations, no intermittent leg claudication and no lower extremity edema. Respiratory: no cough, not coughing up sputum and no wheezing that is consistent with asthma. Gastrointestinal: no abdominal pain, no constipation, no melena, no nausea, no diarrhea, no vomiting and no blood in stools. Musculoskeletal: no arthralgias, no myalgias, no back pain, no joint swelling, no joint stiffness, no limb pain and no limb swelling. Integumentary: no skin rashes, no skin lesions, no itching, no skin wound and no dry skin. Neurological: no headache, no confusion, no numbness, no dizziness, no tingling and no fainting. All other systems have been reviewed and are negative for complaint. Active Problems Problems Elevated alkaline phosphatase level (790.5) (R74.8) Elevated liver enzymes (790.5) (R74.8) Encounter for screening colonoscopy (V76.51) (Z12.11) Glaucoma screening (V80.1) (Z13.5) Hyperlipemia (272.4) (E78.5) Increased urinary frequency (788.41) (R35.0) Lump in throat (784.2) (R22.1) Menopause (627.2) (Z78.0) Osteopenia (733.90) (M85.80) Primary osteoarthritis of first carpometacarpal joint of right hand (715.14) (M18.11) Screening for breast cancer (V76.10) (Z12.39) Screening for cardiovascular condition (V81.2) (Z13.6) Screening for cervical cancer (V76.2) (Z12.4) Screening for skin condition (V82.0) (Z13.89) Thumb pain (729.5) (M79.646) UTI (urinary tract infection) (599.0) (N39.0) Past Medical History Problems History of Delivery by section (669.70) 07/15/2009 FEMALE Encounter for preventive health examination (V70.0) (Z00.00) Resolved Date: H/O bone density study (V15.89) (Z92.89) 11/2019 History of mammogram (V15.89) (Z92.89) 11/25/2020 History of menopause (V49.81) (Z78.0) 2018 History of Papanicolaou smear (V45.89) (Z98.890) 12/14/20206787-EW-VJAK NEGATIVE 06/29/17 NIL Per records History of Menarche (V21.8) AGE 18 History of Women's annual routine gynecological examination (V72.31) (Z01.419) Surgical History Problems History of Cerv (more content not included)... 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 COMPARISON: None. ACCESSION NUMBER(S): [id number] ORDERING CLINICIAN: DIANA WHALEN TECHNIQUE: Three views of the right hand including AP, oblique and lateral projections were obtained. FINDINGS: There is no evidence of acute fracture or dislocation identified. Moderate hypertrophic degenerative changes are seen in the trapezium 1st metacarpal articulation. IMPRESSION: 1. No fracture or dislocation. 2. Degenerative changes, as described above. Electronically signed by: RONNIE BOURNE MD [facility] Initial Visit (Orthopaedic S urgery)on 08-11-2022 Initial Visit (Orthopaedic Surgery) Diagnoses/Problems Assessed Primary osteoarthritis of first carpometacarpal joint of right hand (715.14) (M18.11) Provider Impressions Assessment: Right CMC osteoarthritis Plan: Today, we discussed different treatment options and she has relatively mild pain with the joint. I would recommend a short thumb spica Exos brace for when she is mountain biking and as needed in any other activities. We discussed possibility of injections and she like to defer this at this time. We also discussed occupational therapy in the future if needed and also surgical management of the arthritis. She would like to work on exercises on her own and continue with [id number] pain relievers along with the bracing and will follow-up as needed Chief Complaint New patient here today for R thumb pain x 1 year. States her discomfort slowly started and has increased over the past year. Patient has some swelling and stiffness. Xrays done 08/11. Referred by Dr. Apodaca. History of Present Illness Patient is here today for evaluation of [...] mg of ibuprofen as needed for pain. Review of Systems Review of systems normal except above mentioned HPI Active Problems Problems Elevated alkaline phosphatase level (790.5) (R74.8) Elevated liver enzymes (790.5) (R74.8) Encounter for screening colonoscopy (V76.51) (Z12.11) Glaucoma screening (V80.1) (Z13.5) Hyperlipemia (272.4) (E78.5) Increased urinary frequency (788.41) (R35.0) Lump in throat (784.2) (R22.1) Menopause (627.2) (Z78.0) Osteopenia (733.90) (M85.80) Screening for breast cancer (V76.10) (Z12.39) Screening for cardiovascular condition (V81.2) (Z13.6) Screening for cervical cancer (V76.2) (Z12.4) Screening for skin condition (V82.0) (Z13.89) Thumb pain (729.5) (M79.646) Women's annual routine gynecological examination (V72.31) (Z01.419) Past Medical History Problems History of Delivery by section (669.70) 07/15/2009 FEMALE Encounter for preventive health examination (V70.0) (Z00.00) Resolved Date: H/O bone density study (V15.89) (Z92.89) 11/2019 History of mammogram (V15.89) (Z92.89) 11/25/2020 History of menopause (V49.81) (Z78.0) 2017 History of Papanicolaou smear (V45.89) (Z98.890) 12/14/20209788-OA-WADN NEGATIVE 06/29/17 NIL Per records History of Menarche (V21.8) AGE 18 Surgical History Problems History of Cervical surgery leep procedure History of section Family History Mother No pertinent family history Father Family history of cerebrovascular accident (CVA) (V17.1) (Z82.3) Family history of diabetes mellitus (V18.0) (Z83.3) Family history of glaucoma (V19.11) (Z83.511) Family history of myocardial infarction (V17.3) (Z82.49) Sister Family history of cerebrovascular accident (CVA) (V17.1) (Z82.3) Family history of diabetes mellitus (V18.0) (Z83.3) Family history of glaucoma (V19.11) (Z83.511) Family history of myocardial infarction (V17.3) (Z82.49) Aunt Family history of leukemia (V16.6) (Z80.6) Maternal Aunt Family history of glaucoma (V19.11) (Z83.511) Family history of malignant neoplasm of breast (V16.3) (Z80.3) >50 Uncle Family history of glaucoma (V19.11) (Z83.511) Cousin Family history of leukemia (V16.6) (Z80.6) Maternal Cousin Family history of malignant neoplasm of ovary (V16.41) (Z80.41) Cousins 30 and 40 with chemo/radiation per patient. Unsure if they had genetics. (different mom then othr aunt with breast ca) Social History Problems Daily caffeinated coffee consumption Denies alcohol consumption (V49.89) (Z78.9) Does not use illicit drugs (V49.89) (Z78.9) Never chewed tobacco (V49.89) (Z78.9) Non-smoker (V49.89) (Z78.9) Sexually active Allergies Sulfa Drugs Hives;; Recorded By: Luzmaria Henderson; 11/13/2019 10:51:43 AM Bactrim Recorded By: Dominga Amaro; 11/12/2019 4:46:31 PM Current Meds Medication NameInstruction One Daily For Women TABS Vitamin D3 75 MCG (3000 UT) Oral TabletTake 1 tablet daily Vitals Vital Signs Recorded: 11Aug2022 08:32AM Duhixjkhwhk36.1 F Height5 ft 6 in Bksbyo243 lb BMI Ldlaqemmhb03.25 kg/m2 BSA Calculated2.03 Tobacco Useb) No Physical Exam Right upper extremity is neurovascularly intact range of motion is restricted, there is deformity at the first CMC, tenderness with palpation of the CMC (more content not included)... Normal [facility] Radiology[facility] 08-11-2022 XR Hand 3 Views Please click on the link to view the study images Normal [facility] Orthopedics and [facility] 300 Work Phone: XR Hand 3 Views Normal [facility] Orthopedics and [facility] Medicine 300 Work Phone: Tobacco Screening.on 022 Tobacco use status CPHS b) No [facility] Orthopedics and [facility] 300 Work Phone: Blood Pressure Cuff Sizeon 1 Adult depression screening assessment No [facility] Work Phone: Fall risk assessment a) No falls within the last year [facility] Work Phone: Tobacco use status CPHS b) No [facility] Work Phone: Blood Pressure Cuff Size Adult [facility] Work Phone: Office Visit (Internal Medic ine)on 08-04-2022 Follow-up visit Diagnoses/Problems Assessed Elevated liver enzymes (790.5) (R74.8) Thumb pain (729.5) (M79.646) Hyperlipemia (272.4) (E78.5) Elevated alkaline phosphatase level (790.5) (R74.8) Orders Elevated alkaline phosphatase level Parathormone Intact, Serum; Status:Active; Requested for:05Aug2022; Perform:Lab Services - Lab To Draw (Blood Test); Due:03Nov2022;Ordered; For:Elevated alkaline phosphatase level; Ordered By:Scar Apodaca; Vitamin D 25-Hydroxy; Status:Active; Requested for:05Aug2022; Perform:Lab Services - Lab To Draw (Blood Test); Due:03Nov2022;Ordered; For:Elevated alkaline phosphatase level; Ordered By:Scar Apodaca; Elevated liver enzymes CT Abdomen with IV Contrast; Status:Canceled; Perform: Radiology Services Imaging;Ordered; For:Elevated liver enzymes; Ordered By:Scar Apodaca; Radiology Cancel Reason: ADMINISTRATIVE CANCEL Patient taking Metformin or Derivatives? : No Radiologist to Determine Optimal Study : Y What are the patient's signs and symptoms? : elevated liver enzymes CT Liver With Contrast; Status:Hold For - Scheduling; Requested for:04Aug2022; Perform: Radiology Services Imaging; Due:02Nov2022; Last Updated By:Nadeem Hathaway; 08/04/2022 3:57:44 PM;Ordered; For:Elevated liver enzymes; Ordered By:Scar Apodaca; CMP LAB DONE 07/08/2022. SCANNED INTO AEMR. Patient taking Metformin or Derivatives? : No Radiologist to Determine Optimal Study : Y What are the patient's signs and symptoms? : elevated lfts Hyperlipemia MISCELLANEOUS TEST; Status:Active; Requested for:05Aug2022; Perform:Lab Services - Lab To Draw (Non-Blood Test); Order Comments:antimitocondira l antibodies; Due:03Nov2022;Ordered; For:Hyperlipemia; Ordered By:Scar Apodaca; Thumb pain Xray Hand 2 View; Status:Hold For - Scheduling; Requested for:04Aug2022; Perform: Radiology Services Imaging; Due:02Nov2022;Ordered; For:Thumb pain; Ordered By:Scar Apodaca; Laterality : Right Radiologist to Determine Optimal Study : Y What are the patient's signs and symptoms? : thumb pain Orthopedic - General Referral Evaluation and Treatment Evaluate AND Treat Status: Complete Done: 04Aug2022 Ordered;For: Thumb pain; Ordered By: Scar Apodaca Performed: Due: 02Nov2022; Last Updated By: Debbie Pulido; 08/04/2022 3:55:25 PM Provider Impressions Immunizations: Influenza Vaccine: 2021 Prevnar 13 Vaccine: Pneumovax 23 Vaccine: Shingrix Vaccine: recommended Tdap: Health Maintenance: Breast Cancer screenin/22 Bone Density: 2019 Cervical Cancer Screenin Colon Cancer Screening 2019 1. Elevated liver enzymes, have been steadily increasing over the last several years of unclear etiology - most recent alk phos 147, ggtp 149, ast 24, alt 43, BUN 29, CR 0.91, T protein 9.7, do now see that she has ever had pth, vit d , ama - will order ct of the abd w contrast to evaluate liver since GGTP was elevated 2. 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 Patient repots that it has been bothering her for some time, she reports that it just aches, she cannot flatten her thumb out. She does not find that it gets stuck, she is left handed. No injury to it that she knows. no numbness. She has had some elevated liver enzymes for the past several years She does not drink, does not take any medications. She has tried over the years to lose weight and then will gain it back. Review of Systems Constitutional: no fever, no chills, not feeling poorly, not feeling tired, no recent weight gain and no recent weight loss. ENT: no earache, no hearing loss, no nosebleeds, no nasal discharge, no sore throat and no hoarseness. Cardiovascular: the heart rate was not slow, the heart rate was not fast, no chest pain, no palpitations, no intermittent leg claudication and no lower extremity edema. Respiratory: no cough, not coughing up sputum and no wheezing that is consistent with asthma. Gastrointestinal: no abdominal pain, no constipation, no melena, no nausea, no diarrhea, no vomiting and no blood in stools. Musculoskeletal: arthralgias, but no myalgias, no back pain, no joint swelling, no joint stiffness, no limb pain and no limb swelling. Integumentary: no skin rashes, no skin lesions, no itching, no skin wound and no dry skin. Neurological: no headache, no confusion, no numbness, no dizziness, no tingling and no fainting. All other systems have been reviewed and are negative for complaint. Active Problems Problems Encounter for screening colonoscopy (V76.51) (Z12.11) Glaucoma screening (V80.1) (Z13.5) Hyperlipemia (272. (more content not included)... Normal [employer] Absolute lymphocyte counton 07-08-2022 Lymphocytes Auto (Unsp spec) [#/Vol] 1.36 10*3/uL 0.83-4.51 [facility] Work Phone: Absolute reticulocyte counto n 07-08-2022 Reticulocytes (Bld) [#/Vol] 0.00 10*3/uL 0-5 [facility] Work Phone: Basophil percentageon 2021 Basophil percentage 3.5 mg/dL 2.5-4.9 [facility] Work Phone: Bilirubin [Mass/Vol] 0.30 mg/dL 0.20-1.00 [facility] [place] Work Phone: Comment on above: For patients on eltr ombopag therapy, use of Dimension [place] TBIL is not recommended. Chloride [Moles/Vol] 106 mmol/L 98-107 [facility] [place] Work Phone: Cholesterol [Mass/Vol] 280 mg/dL <200 [facility] Work Phone: Comment on above: <200 mg/dL Desirable 200-240 mg/dL Borderline >240 mg/dL High Risk Glucose [Mass/Vol] 93 mg/dL 74-106 [facility] Work Phone: Glucose [Mass/Vol] 94 mg/dL 74-106 [facility] Work Phone: Neutrophils (Bld) [#/Vol] 3.4 10*3/uL 2.0-7.7 [facility] Work Phone: Potassium [Moles/Vol] 4.2 mmol/L 3.5-5.1 [facility] Work Phone: Protein [Mass/Vol] 8.3 g/dL 6.4-8.2 [facility] Work Phone: Protein [Mass/Vol] 8.1 g/dL 6.4-8.2 [facility] Work Phone: Sodium [Moles/Vol] 140 mmol/L 136-145 [facility] Work Phone: Sodium [Moles/Vol] 139 mmol/L 136-145 [facility] Work Phone: Triglyceride [Mass/Vol] 74 mg/dL <199 [facility] Work Phone: Comment on above: The drugs N-Acetylcy steine and Metamizole may falsely depress this assay.Serum Triglycerides Reference Interval Normal <150 mg/dL Borderline high 150 - 199 mg/dL High 200 - 499 mg/dL Very High > or = 500 mg/dL WBC (Bld) [#/Vol] 5.5 10*3/uL 4.4-11.0 [facility] Work Phone: Bilirubin Test strip Ql (U)o n 07-08-2022 Bilirubin Ql (U) Negative Negative [facility] Work Phone: Blood erythrocytes count (nu mber/volume)on 07-08-2022 RBC (Bld) [#/Vol] 4.91 10*6/uL 4.2-5.4 [facility] Work Phone: Blood hemoglobin measurement (mass/volume)on 07-08-2022 Hemoglobin (Bld) [Mass/Vol] 14.4 g/dL 12.0-15.0 [facility] Work Phone: Blood platelet mean volumeon 07-08-2022 Platelet mean volume (Bld) [Entitic vol] 9.4 fL 6.2-12.0 [facility] Work Phone: Determination of erythrocyte mean corpuscular volume (MCV)on 07-08-2022 MCV (RBC) [Entitic vol] 90.0 fL 81-99 [facility] Work Phone: Direct bilirubinon 2 Bilirubin.direct [Mass/Vol] 0.09 mg/dL 0.00-0.30 [facility] Work Phone: Hematocrit Auto (Bld) [Volum e fraction]on 07-08-2022 Hematocrit (Bld) [Volume fraction] 44.2 % 37-47 [facility] Work Phone: Ketones Test strip Ql (U)on 07-08-2022 Ketones Ql (U) Negative Negative [facility] Work Phone: Laboratory - Chemistry and C hemistry - challengeon 07-08-2022 ALP [Catalytic activity/Vol] 147 U/L 45-117 [facility] Work Phone: ALP [Catalytic activity/Vol] 145 U/L 45-117 [facility] Work Phone: ALT [Catalytic activity/Vol] 43 U/L 13-56 [facility] Work Phone: ALT [Catalytic activity/Vol] 42 U/L 13-56 [facility] Work Phone: Amylase [Catalytic activity/Vol] 149 U/L 5-55 [facility] Work Phone: Cholesterol.total/Chol esterol in HDL [Mass ratio] 4.30 {ratio} [facility] Work Phone: CO2 [Moles/Vol] 25.0 mmol/L 21.0-32.0 [facility] Work Phone: CO2 [Moles/Vol] 24.0 mmol/L 21.0-32.0 [facility] Work Phone: Globulin (S) [Mass/Vol] 4.6 g/dL 2.2-4.2 [facility] Work Phone: Globulin (S) [Mass/Vol] 4.4 g/dL 2.2-4.2 [facility] Work Phone: Urea nitrogen/Creatinine [Mass ratio] 25.2 mg/mg 10-20 [facility] Work Phone: Urea nitrogen/Creatinine [Mass ratio] 28.8 mg/mg 10-20 [facility] Work Phone: Laboratory - Hematology and Cell countson 07-08-2022 Erythrocyte distribution width (RBC) [Entitic vol] 43.2 fL 35.1-43.9 [facility] Work Phone: Erythrocyte distribution width (RBC) [Ratio] 13.1 % 11.6-14.6 [facility] Work Phone: MCH (RBC) [Entitic mass] 29.3 pg 27.0-32.0 [facility] Work Phone: Nucleated RBC/100 WBC (Bld) [Ratio] 0 % 0-5 [facility] Work Phone: MCHC Auto (RBC) [Mass/Vol]on 07-08-2022 MCHC (RBC) [Mass/Vol] 32.6 g/dL 32-36 [facility] Work Phone: Nitrite Test strip Ql (U)on 07-08-2022 Nitrite Ql (U) Negative Negative [facility] Work Phone: No Panel Informationon 07-08 Estimated GFR (MDRD) Amer 82 mL/min >60 [facility] Work Phone: Comment on above: GFR Calc Estimated GFR (MDRD) Amer 92 mL/min >60 [facility] Work Phone: Comment on above: GFR Calc Estimated GFR (MDRD) Non-Af Amer 68 mL/min >60 [facility] Work Phone: Comment on above: Non- GFR Calc Estimated GFR (MDRD) Non-Af Amer 76 mL/min >60 [facility] Work Phone: Comment on above: Non- GFR Calc Platelets bldon 07-08-2022 Platelets (Bld) [#/Vol] 335 10*3/uL 150-450 [facility] Work Phone: Protein Test strip Ql (U)on 07-08-2022 Protein Ql (U) Negative Negative [facility] Work Phone: Segmented neutrophils/100 WB C Auto (Bld)on 07-08-2022 Segmented neutrophils/100 WBC (Bld) 61.5 % 47-70 [facility] Work Phone: Serum or plasma albumin natty urement (mass/volume)on 07-08-2022 Albumin [Mass/Vol] 3.7 g/dL 3.2-5.0 [facility] Work Phone: Serum or plasma albumin/glob ulin mass ratioon 07-08-2022 Albumin/Globulin [Mass ratio] 0.8 {ratio} 0.9-2.4 [facility] Work Phone: Serum or plasma calcium natty urement (mass/volume)on 07-08-2022 Calcium [Mass/Vol] 9.7 mg/dL 8.5-10.1 [facility] Work Phone: Calcium [Mass/Vol] 10.2 mg/dL 8.5-10.1 [facility] Work Phone: Serum or plasma cholesterol in HDL measurement (mass/volume)on 07-08-2022 Cholesterol in HDL [Mass/Vol] 65 mg/dL >40 [facility] Work Phone: Comment on above: The drugs N-Acetylcy steine and Metamizole may falsely depress this assay. Reference Range HDL <40 mg/dL Low HDL Cholesterol HDL >or= 60 mg/dL High HDL Cholesterol Serum or plasma cholesterol in VLDL measurement (mass/volume)on 07-08-2022 Cholesterol in VLDL [Mass/Vol] 15 mg/dL 5-40 [facility] Work Phone: Serum or plasma creatinine m easurement (mass/volume)on 07-08-2022 Creatinine [Mass/Vol] 0.91 mg/dL 0.55-1.02 [facility] Work Phone: Comment on above: The validity of the calculated GFR & GFRAA in patients over 70 years has not been determined. Clinical correlation is essential. Creatinine [Mass/Vol] 0.83 mg/dL 0.55-1.02 [facility] Work Phone: Comment on above: The validity of the calculated GFR & GFRAA in patients over 70 years has not been determined. Clinical correlation is essential. Serum or plasma low density lipoprotein (LDL) cholesterol measurement (mass/volume)on 07-08-2022 Cholesterol in LDL [Mass/Vol] 200 mg/dL 0-130 [facility] Work Phone: Serum or plasma urea nitroge n measurement (mass/volume)on 07-08-2022 Urea nitrogen [Mass/Vol] 23 mg/dL -18 [facility] Work Phone: Urea nitrogen [Mass/Vol] 24 mg/dL 05-16 [facility] Work Phone: Serum or plasma uric acid me asurement (mass/volume)on 07-08-2022 Urate [Mass/Vol] 5.5 mg/dL 2.6-6.0 [facility] Work Phone: Comment on above: The drugs N-Acetylcy steine and Metamizole may falsely depress this assay. Thin prep Papanicolaou smear with manual screeningon 07-08-2022 Thin prep Papanicolaou smear with manual screening 24 U/L 15-37 [facility] Work Phone: Thin prep Papanicolaou smear with manual screening 23 U/L 15-37 [facility] Work Phone: Thin prep Papanicolaou smear with manual screening 9 5-15 [facility] Work Phone: Thin prep Papanicolaou smear with manual screening 230 U/L 84-246 [facility] Work Phone: Urine blood detectionon - RBC Ql (U) Negative Negative [facility] Work Phone: Urine clarityon 09-09-2022 Clarity (U) Clear Clear [facility] Work Phone: Urine color determinationon 07-08-2022 Color (U) Yellow Yellow [facility] Work Phone: Urine glucose detectionon Glucose Ql (U) Normal mg/dl Normal [facility] Work Phone: Urine leukocyte esterase det ection by dipstickon 07-08-2022 Leukocyte esterase Test strip Ql (U) Negative Negative [facility] Work Phone: Urine pHon 07-08-2022 pH (U) 6.0 [pH] 5.0 - 8.0 [facility] Work Phone: Urine specific gravity measu rementon 07-08-2022 Specific gravity (U) [Rel density] 1.010 1.002-1.03 0 [facility] Work Phone: Urobilinogen Auto test strip Ql (U)on 07-08-2022 Urobilinogen Ql (U) Normal mg/dl Normal [facility] Work Phone: Provider Note - ED v3on 03-31 Provider Note - ED v3 Provider Note: Chart Review HISTORY OF PRESENTING ILLNESS MEKA is a 56 year old Female and was seen by me at 25-Apr-2022 10:34. Triage Information: Most recent Vital Sign Value Date PAST MEDICAL HISTORY CURRENT OR FORMER SUBSTANCE USE: Tobacco/Nicotine Use: never smoker Alcohol Use: denies ALLERGIES/INTOLERANCES: Allergy Allergen: Bactrim Type: Drug Reaction: Rash Allergen: sulfa drugs Type: Drug Category Reaction: Rash HEALTH HISTORY: No documented data. OUTPATIENT MEDICATIONS: Home Medications Review Status for Reconciliation: Incomplete Med Status: Patient Currently Takes Medications Drug Name: Multiple Vitamins oral tablet Instructions: 1 tab(s) orally once a day Drug Name: valACYclovir 1 g oral tablet Instructions: 1 tab(s) orally 3 times a day x 7 days Drug Name: Cipro 500 mg oral tablet Instructions: 1 tab(s) orally 2 times a day SIGNIFICANT EVENTS: No documented data. REFRIGERATION UNIT REPAIRER: Is : no Is : no MDM MDM/ED COURSE: This note was dictated using Dragon [employer]. This note may contain spelling, grammar, formatting erros and misrecognization of what was dictated. CC: Painful urination HPI: Historian: Patient The patient presents today with symptoms starting 7 days ago. Symptoms include see ROS and Negative for see ROS Aggravating factors include urinating. Relieving factors include denies. The patient has had similar symptoms before. Patient recently [place] She forgot to take her vaginal estrogen cream on the trip with her. She did swim in a rodriguez and after being in a rodriguez noted a very strong odor to the rodriguez, she showered after getting out REVIEW OF SYSTEMS (+)=Complains of (-)= Denies General: (-) Weakness, (-) Fatigue, (-)Fever. Pulmonary: (-) Cough, (-)Dyspnea, (-)Wheezing. Cardiac: (-) Chest pain, (-)Edema Gastrointestinal: (-)Nausea, (-)Vomiting, (-)Diarrhea, (-)Abdominal Pain. TRANSFERRER: (-) vaginal discharge (-) vaginal Odor Urinary:(+) Frequency, (+)Urgency, (+)Pain during urination, (-)Hematuria Back Pain (+) Psychological: (-)Anxiety, (-)Depression, (-)Thoughts or plan of self-harm. PHYSICAL EXAM Patient in seated position. Appearance well groomed, alert and orientated, no acute distress, speech clear, and evenly paced, good historian, cooperative. Head: Normocephalic. Ear: External pinna skin intact with no mases, lesions, tenderness, or discharge. Otoscopic: Landmarks external canals clear with no redness swelling, lesions, discharge. TM bilaterally pearly browning with light reflex and landmarks intact, no perforation. Nose: Nose symmetric, no deformity, or lesions, nares patent, mucosa pink, no discharge, lesions, polyps, no septal deviation or perforation. Sinus : No tenderness to ethmoid, and maxillary sinus upon palpation, No transillumination diffuse red glow noted. Mouth: Throat mucosa pink, no lesions, or exudate. Uvula midline rises on phonation. , + gag reflex. Lips moist and pink. Teeth intact and well maintained no missing or chipped teeth. No foul-smelling odor from breath. Soft and hard palpate intact. Tongue surface smooth, shiny with veins. Skin: Skin is warm and dry, no rashes, edema, bruising or lesion, appropriate color for ethnicity. Cardiac: Regular S1 S2 no murmur, gallop/rub noted Lungs: Inspection +symmetric expansion, Patient sitting, respirations full, easy, and unlabored, skin color appropriate for ethnicity, pink, no cyanosis, or lesions noted. Auscultation Patient supine clear to auscultation bilaterally all vesicular jackson. Tracheal/bronchial- loud high pitch. Bronchovesicular moderate pitch. Abdomen: Inspection: Shape: flat Muscle: normal; no ridge noted. Masses: No masses noted bilaterally. Auscultation: Bowel sounds: normal high pitched, gurgling, occurring irregular 5-30 seconds. Percussion: CVA: Right pain with noted thud. Palpation: Light and Deep: abdomen soft, no guarding, rigidity, large masses, or tenderness noted. Diagnostic: Urinalysis without microscope Glucose negative Bilirubin negative Ketone negative Specific Blackwell 1.010 Blood negative pH 5.0 Protein negative Urobilinogen 0.2 Nitrite negative Leukocytes negative Urnie Culture-Send Out Patient Impression/Plan/ Education and Follow up: Exam with diagnostic testing inconclusive a this time will treat for UTI/pylenoephrisits with noted CVA tenderness., although reviewed other potential etiologies. afebrile, and no other red flags on exam. Patient will be discharged home with oral antibiotics. Instructed to begin CIPRO MARIAMA (reviewed expectations and common side effects of treatment), and complete full course of medication, even if symptoms resolve more quickly. Also advised to push fluids, rest, and to use appropriate over the counter medications for man (more content not included)... Normal [facility] URINALYSISon 04-25-2022 Appearance (U) CLEAR Normal CLEAR [facility] Comment on above: Performed By: #### U A #### [address] [address] Bilirubin Ql (U) Negative Normal NEGATIVE [facility] Comment on above: Performed By: #### U A #### [address] [address] Color (U) Colorless Normal STRAW,YELL OW [facility] Comment on above: Performed By: #### U A #### [address] [address] Glucose Ql (U) Negative Normal NEGATIVE [facility] Comment on above: Performed By: #### U A #### [address] [address] Hemoglobin Ql (U) Negative Normal NEGATIVE [facility] Comment on above: Performed By: #### U A #### [address] [address] Ketones Ql (U) Negative Normal NEGATIVE [facility] Comment on above: Performed By: #### U A #### [address] [address] Leukocyte esterase Test strip Ql (U) Negative Normal NEGATIVE [facility] Comment on above: Performed By: #### U A #### [address] [address] Nitrite Ql (U) Negative Normal NEGATIVE [facility] Comment on above: Performed By: #### U A #### [address] [address] pH (U) 5.0 [pH] Normal 5.0 - 8.0 [facility] Comment on above: Performed By: #### U A #### [address] [address] Protein Ql (U) Negative Normal NEGATIVE [facility] Comment on above: Performed By: #### U A #### [address] [address] Specific gravity (U) [Rel density] 1.005 Normal 1.005 - 1.035 [facility] Comment on above: Performed By: #### U A #### [address] [address] Urobilinogen (U) [Mass/Vol] mg/dL Normal 0.0 - 1.9 [facility] Comment on above: Performed By: #### U A #### [address] [address] URINE CULTURE,BACTERIALon URINE CULTURE,BACTERIAL PATIENT: MEKA CAMPOS LOCATION: [facility] [place] BILL#: [id number] : 69 AGE: SEX: F ORDERED BY: DIONE EATON SOURCE: URINE COLLECTED: 04/25/22 11:35 ANTIBIOTICS AT QUE.: RECEIVED : 04/25/22 17:23 SITE: Clean Catch/Voided R E S U L T S URINE CULTURE,BACTERIAL FINAL 04/26/22 09:45 NO SIGNIFICANT GROWTH. Normal [facility] Comment on above: Performed By: #### U [facility] #### [facility] [address] [place] [address] Provider Note - ED v3on Provider Note - ED v3 Provider Note: Chart Review: HISTORY OF PRESENTING ILLNESS MEKA is a 56 year old Female and was seen by me at 04-Jan-2022 09:05. The historian is the patient. Triage Information: Most recent Vital Sign Value Date PAST MEDICAL HISTORY ALLERGIES/INTOLERANCES: Allergy Allergen: Bactrim Type: Drug Reaction: Rash Allergen: sulfa drugs Type: Drug Category Reaction: Rash HEALTH HISTORY: No known health issues. Is amenorrheic x >1 year. Family history: no pertinent history. Social history: non-smoker. . 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 OUTPATIENT MEDICATIONS: Home Medications Review Status for Reconciliation: Complete Med Status: Patient Currently Takes Medications Drug Name: Multiple Vitamins oral tablet Instructions: 1 tab(s) orally once a day Drug Name: valACYclovir 1 g oral tablet Instructions: 1 tab(s) orally 3 times a day x 7 days SIGNIFICANT EVENTS: History of x 1. No other known significant events or other known past surgical history. Received [id number] flu vaccine; received 2 doses of the COVID-19 vaccine + 1 booster vaccine. REFRIGERATION UNIT REPAIRER: Is : no CRITICAL CARE VITAL SIGNS: T PRBP SpO2O2(LPM) %FiO2 Method 04-Jan-2022 08:33:[id number] 98 MDM MDM/ED COURSE: This note was generated with voice recognition software and may contain errors including spelling, grammar, syntax, and misrecognization of what was dictated CHIEF COMPLAINT R upper thigh/groin pain/rash HISTORY OF PRESENT ILLNESS Patient presents today for evaluation of R upper thigh/groin pain and rash. Reports she had itching at the area on Monday, but reports she now has tingling and pain "like prickly heat over the surface of my skin" in a strip. Reports she saw her Senior Controls Analyst yesterday for her yearly appt (no rash was present at that time) - they wondered if it might be early signs of shingles but advised to see PCP if rash developed. This AM, she noticed she has a strip of pink rash that developed near her inguinal fold. Has not had any drainage from the rash, but reports was unable to sleep last night d/t the discomfort. No rash noted anywhere else. Denies any current itching; no known injury or irritants. Reports she had a little diarrhea over the weekend, but none since; has a mild headache today. She denies any fever/chills, n/v, or other systemic symptoms. He has been applying Ceravae cream with some temporary relief; has not tried any other OTC medications for her symptoms. Denies any other complaints. No known health issues. States she has not received the Herpes Zoster vaccine; does have history of the chicken pox when she was a child. REVIEW OF SYSTEMS 10 systems reviewed negative with exception of history of present illness listed above PHYSICAL EXAMINATION General: Pleasant female, alert and oriented, in no acute distress. Eyes: Eyes non-icteric; conjunctiva clear. HENT: Airway patent. Neck: Supple; no palpable lymphadenopathy Respiratory: Respirations are non-labored; lungs with good air movement throughout. No wheezing, rhonchi, or rales. Breath sounds are equal, Symmetrical chest wall expansion. Non-dyspneic. Cardiovascular: Normal rate, Regular rhythm. Normal S1S2. No m/r/g. Musculoskeletal: Grossly normal. Gait unremarkable. Has grossly FROM all extremities, including R hip. Integumentary: Clusters of maculopapular rash scattered just distal to R inguinal area, on anterior thigh. No vesicles, pustules, crusting, or drainage, but area with rash and an approx 3 inch strip distal to rash noted to be exquisitely tender to palpation. No swelling, other erythema, or signs of bacterial infection. No rash noted elsewhere on body. Genitourinary: no palpable inguinal hernia or palpable lump. Neurologic: Alert, Oriented, Normal sensory, Normal motor function. Cognition and Speech: Oriented, Speech clear and coherent. Psychiatric: Cooperative, Appropriate mood & affect. MEDICAL DECISION MAKING Course: Worsening; stable. Impression/plan: Symptoms and exam consistent with early Herpes Zoster (shingles). Will start oral antiviral MARIAMA, as well as OTC NSAID + acetaminophen for management of discomfort. Cool compresses and calamine lotion may also be helpful. Discussed shingles and expectations for treatment and resolution of symptoms at length, as well as the possibility of complications, including postherpetic neuralgia and secondary bacterial infection. Urged to monitor closely for any s/sxs of complication, and reviewed precautionary measures - should avoid contact with and immunocompromised individuals, as well as children who have not yet had the chicken pox virus/vaccine. Encouraged to f/u with PCP if not improving over the next few days, or sooner if any additional problems/red flags develop. Patient agreed with plan of care; erik (more content not included)... Normal [facility] Tobacco Screening.on 022 Last menstrual period start date MENOPAUSE [facility] [address] Work Phone: Tobacco use status [facility] b) No [facility] [address] Work Phone: [place] Cardiac Scoringon 022 CT Cardiac Scoring Normal -[facility] Work Phone: CT Cardiac Scoring Please click on the link to view the study images Normal [facility] [address] Work Phone: DIGITAL MAMM SCREENING W/ TO [place] 11-26-2021 DIGITAL MAMM SCREENING W/ CASTILLO Patient Name: MEKA CAMPOS STUDY: Digital mammography screening with castillo; 11/26/2021 3:35 pm ACCESSION NUMBER(S): [id number] ORDERING CLINICIAN: LINDY CARBAJAL INDICATION: Screening. COMPARISON: Comparison is made to prior digital mammograms dated 11/25/2020 FINDINGS: CC and MLO 2D digital mammograms and digital breast tomosynthesis images were obtained of the bilateral breasts. 3-D volume images were reconstructed in 6 views at an independent workstation as 1 mm slices through the breasts in both the CC and MLO projections. There are areas of scattered fibroglandular tissue. No discrete mass or focal asymmetry is identified. No suspicious microcalcifications or foci of architectural distortion are seen. There has been no significant change. This study was interpreted with CAD. IMPRESSION: No mammographic evidence of malignancy. BI-RADS CATEGORY: Category: 1 - Negative. Recommendation: 1 Year Screening. Electronically signed by: RONNIE BOURNE MD [facility] Mamm - Screening Mammogram w / Tomosynthesison 11-26-2021 MG Breast Screening Normal [facility] [address] Work Phone: Falls Risk Screeningon 11-15 Fall risk assessment a) No falls within the last year [facility] [address] Work Phone: Tobacco use status CPHS b) No [facility] [address] Work Phone: Provider Note - ED v2on 12-0 Provider Note - ED v2 Provider Note - ED v2: Chart Review: HISTORY OF PRESENTING ILLNESS MEKA is a 56 year old Female and was seen by me at 01-Oct-2021 11:32. Triage Information: Most recent Vital Sign Value Date PAST MEDICAL HISTORY ATTESTATION: I have reviewed and confirmed nurse's/medic's notes for patient's medications, allergies, and medical, surgical, family and social history ALLERGIES/INTOLERANCES: Allergy Allergen: Bactrim Type: Drug Reaction: Rash Allergen: sulfa drugs Type: Drug Category Reaction: Rash HEALTH HISTORY: No documented data. OUTPATIENT MEDICATIONS: Home Medications Review Status for Reconciliation: Incomplete Med Status: Patient Currently Takes Medications Drug Name: Multiple Vitamins oral tablet Instructions: 1 tab(s) orally once a day Drug Name: Macrobid 100 mg oral capsule Instructions: 1 cap(s) orally 2 times a day SIGNIFICANT EVENTS: No documented data. REFRIGERATION UNIT REPAIRER: Is : no Is : no RESULTS/VITAL SIGNS VITAL SIGNS: T PRBP SpO2O2(LPM) %FiO2 Method 01-Oct-2021 11:33:[id number] 97 MEDICAL DECISION MAKING/ED COURSE MDM/ED COURSE: This note was generated with voice recognition software and may contain errors including spelling, grammar, syntax, and misrecognization of what was dictated Chief Complaint UTI History of Present Illness Patient presents for evaluation of dysuria for 2 days. Symptoms include increased urinary frequency, burning with urination, mild suprapubic discomfort, and change in urine color presented several days prior to prior to arrival without fever, chills, nausea, vomiting, bloating, distention, or change in bowel habits. Patient reports similar episode in the past that was diagnosed as a UTI. No other constitutional signs or symptoms. No other complaints. Patient denies use of any xgjr-mhb-psroroj medications at home prior to arrival for symptom management. Only time and voiding have made her symptoms worse while nothing makes them better. Review of Systems 10 systems reviewed negative with exception of history of present illness listed above Physical Examination General: Alert and oriented, No acute distress. Eye: Pupils are equal, round and reactive to light. HENT: Normocephalic Neck: Supple Musculoskeletal: Normal range of motion, normal strength, no tenderness, no swelling. Integumentary: [place], warm, dry, and Intact. Neurologic: Alert, Oriented, Normal sensory, Normal motor function. Cognition and Speech: Oriented, Speech clear and coherent. Psychiatric: Cooperative, Appropriate mood & affect. Impression and Plan Course: Worsening Plan: Patient will be discharged home with oral antibiotics, instructed to use appropriate over the counter medications for symptom management, and is instructed to follow-up with their primary care provider in 3-5 days for any increase in severity of symptoms or any additional concerns. Patient agrees with plan of care, questions were encouraged and answered. Patient Instructions: Dysuria CLINICAL IMPRESSION Diagnosis/Annotation: ED Dx Name:Dysuria Code:R30.0 Disposition: discharged Type: home ATTESTATION CRITICAL CARE TIME Is this a critically ill patient: no Electronic Signatures: Ravi Sesay (ACTIVITIES AIDE-VICE PRESIDENT OF BUSINESS DEVELOPMENT) (Signed 01-Oct-2021 11:40) Authored: HPI, PMH, PE, Results/Vital Signs, MDM/ED Course, Clinical Impression, Attestation, Chart Review, Scores Last Updated: 01-Oct-2021 11:40 by Ravi Sesay (ACTIVITIES AIDE-VICE PRESIDENT OF BUSINESS DEVELOPMENT) [facility], Urineon 12-14-2020 Bacteria identified Cx Nom (U) PATIENT: MEKA CAMPOS LOCATION: [facility]#: [id number] : 69 AGE: SEX: F ORDERED BY: CHLOE CARBAJAL: URINE COLLECTED: 12/14/20 10:32ANTIBIOTICS AT QUE.: RECEIVED : 12/14/20 16:20SITE: Clean Catch/Voided R E S U L T S URINE CULTURE,BACTERIAL FINAL 12/15/20 09:07 NO SIGNIFICANT GROWTH. [facility] [address] Work Phone: IO UA (automated w/o microsc opy)on 12-14-2020 Protein (U) [Mass/Vol] Negative [facility] [address] Work Phone: IO UA (automated w/o microscopy) Clear [facility] [address] Work Phone: IO UA (automated w/o microscopy) Negative [facility] [address] Work Phone: IO UA (automated w/o microscopy) 1.020 [facility] [address] Work Phone: IO UA (automated w/o microscopy) Trace [facility] [address] Work Phone: IO UA (automated w/o microscopy) 5.5 [facility] [address] Work Phone: IO UA (automated w/o microscopy) Yellow [facility] [address] Work Phone: IO UA (automated w/o microscopy) Normal (0.2-1.0 mg/dl) [facility] [address] Work Phone: IO UA (automated w/o microscopy) (+)small - 15 [facility] [address] Work Phone: Mamm - Screening Mammogram w / Tomosynthesison 11-25-2020 MG Breast screening Interpreted by: HORTENCIA GONSALES11/25/20 15:34MRN: [id number] Name: MEKA CAMPOS STUDY:DIGITAL MAMM SCREENING W/ CA[place]ILL[place]; 11/25/2020 3:15 pm ORDERING CLINICIAN:RAVI DEY INDICATION:Screening. COMPARISON:10/16/2018, 08/25/2016, 11/14/2019 FINDINGS:2D and tomosynthesis images were reviewed at 1 mm slice thickness. There are areas of scattered fibroglandular tissue. No suspiciousmasses or calcifications are identified. CAD was utilized. IMPRESSION:No mammographic evidence of malignancy. BI-RADS CATEGORY: Category: 1 - Negative.Recommendation: 1 Year Screening. For any future breast imaging appointments, please call [phone]). Electronically signed by: JOSE ANGEL GONSALES 11/25/20 15:34 Normal [employer] [facility] Work Phone: Hematologyon 11-13-2020 Hematocrit (Bld) [Volume fraction] 43.3 % See Below [facility] Work Phone: Comment on above: Reference Range: 36. 0 - 46.0 Hemoglobin (Bld) [Mass/Vol] 14.4 g/dL See Below [facility] Work Phone: Comment on above: Reference Range: 12. 0 - 16.0 MCV (RBC) [Entitic vol] 89 fL 80 - 100 [facility] Work Phone: Platelets (Bld) [#/Vol] 349 {x10E9/L} 150 - 450 [facility] Work Phone: RBC (Bld) [#/Vol] 4.87 {x10E12/L} See Below [facility] Work Phone: Comment on above: Reference Range: 4.0 0 - 5.20 WBC (Bld) [#/Vol] 5.0 {x10E9/L} 4.4 - 11.3 [facility] Work Phone: Lipid Panelon 11-13-2020 Cholesterol [Mass/Vol] 257 mg/dL above hig h threshold 0 - 199 [employer] [facility] Work Phone: Comment on above: . AGE DESIRABLE BORD JOANA HIGH HIGH 0-19 Y 0 - 169 170 - 199 >/= 200 20-24 Y 0 - 189 190 - 224 >/= 225 >24 Y 0 - 199 200 - 239 >/= 240 All ranges are based on fasting samples. Specific therapeutic targets will vary based on patient-specific cardiac risk.. Pediatric guidelines reference:Pediatrics 2011, 128(S5). Adult guidelines reference: NCEP ATPIII Guidelines, SAMUEL 2001, 258:2486-97. Venipuncture immediately after or during the administration of Metamizole may lead to falsely low results. Testing should be performed immediately prior to Metamizole dosing. Cholesterol in HDL [Mass/Vol] 61.0 mg/dL [employer] [facility] Work Phone: Comment on above: . AGE VERY LOW LOW N ORMAL HIGH 0-19 Y < 35 < 40 40-45 ---- 20-24 Y ---- < 40 >45 ---- >24 Y ---- < 40 40-60 >60. Cholesterol in LDL [Mass/Vol] 181 mg/dL above high threshold 0 - 99 [employer] [facility] Work Phone: Comment on above: . NEAR BORD AGE DEMETRIA RABLE OPTIMAL HIGH HIGH VERY HIGH 0-19 Y 0 - 109 --- 110-129 >/= 130 ---- 20-24 Y 0 - 119 --- 120-159 >/= 160 ---- >24 Y 0 - 99 100-129 130-159 160-189 >/=190. Cholesterol.total/Chol esterol in HDL [Mass ratio] 4.2 {ratio} [employer] [facility] Work Phone: Comment on above: REF VALUESDESIRABLE < 3.4HIGH RISK > 5.0 Triglyceride [Mass/Vol] 73 mg/dL 0 - 149 [employer] [facility] Work Phone: Comment on above: . AGE DESIRABLE BORD JOANA HIGH HIGH VERY HIGH 0 D-90 D 19 - 174 ---- ---- ----91 D- 9 Y 0 - 74 75 - 99 >/= 100 ---- 10-19 Y 0 - 89 90 - 129 >/= 130 ---- 20-24 Y 0 - 114 115 - 149 >/= 150 ---- >24 Y 0 - 149 150 - 199 200- 499 >/= 500. Venipuncture immediately after or during the administration of Metamizole may lead to falsely low results. Testing should be performed immediately prior to Metamizole dosing. Lipid Panel 15 mg/dL 0 - 40 -[facility] [facility] Work Phone: Metabolic Panelon 11-13-2020 ALP [Catalytic activity/Vol] 126 U/L above high threshold 33 - 110 [facility] Work Phone: Anion gap [Moles/Vol] 11 mmol/L 10 - 20 [facility] [employer] [facility] Work Phone: Bilirubin [Mass/Vol] 0.5 mg/dL 0.0 - 1.2 [facility] [employer] [facility] Work Phone: Calcium [Mass/Vol] 9.5 mg/dL 8.6 - 10.3 [employer] [facility] Work Phone: Chloride [Moles/Vol] 105 mmol/L 98 - 107 [employer] [facility] Work Phone: CO2 [Moles/Vol] 28 mmol/L 21 - 32 [facility] [employer] [facility] Work Phone: Creatinine [Mass/Vol] 0.77 mg/dL See Below [facility] [employer] [facility] Work Phone: Comment on above: Reference Range: 0.5 0 - 1.05 Glucose [Mass/Vol] 96 mg/dL 74 - 99 [employer] [facility] Work Phone: Potassium [Moles/Vol] 4.3 mmol/L 3.5 - 5.3 [facility] [employer] [facility] Work Phone: Protein [Mass/Vol] 7.4 g/dL 6.4 - 8.2 [employer] [facility] Work Phone: Sodium [Moles/Vol] 140 mmol/L 136 - 145 -[facility] Work Phone: Urea nitrogen [Mass/Vol] 18 mg/dL 6 - 23 [facility] Work Phone: Otheron 11-13-2020 Albumin BCP dye [Mass/Vol] 4.3 g/dL 3.4 - 5.0 [facility] Work Phone: ALT With P-5'-P [Catalytic activity/Vol] 24 U/L 7 - 45 [facility] Work Phone: Comment on above: Patients treated wit h Sulfasalazine may generate falsely decreased results for ALT. AST With P-5'-P [Catalytic activity/Vol] 20 U/L 9 - 39 [facility] Work Phone: Erythrocyte distribution width (RBC) [Ratio] 13.9 % See Below [facility] Work Phone: Comment on above: Reference Range: 11. 5 - 14.5 MCHC (RBC) [Mass/Vol] 33.1 g/dL See Below [facility] Work Phone: Comment on above: Reference Range: 32. 0 - 36.0 >60 >60 [facility] Work Phone: Comment on above: CALCULATIONS OF WHITNEY MATED GFR ARE PERFORMED USING THE MDRD STUDY EQUATION FOR THE IDMS-TRACEABLE CREATININE METHODS. CLIN CHEM 2007;53:766-72 Mamm - Screening Mammogram w / Tomosynthesison 11-14-2019 MG Breast screening Please click on the link to view the study images Normal [facility] Work Phone: MG Breast screening Interpreted by: RONNIE BOURNE11/29/19 08:27MRN: [id number] Name: ANDRES MEKA STUDY:Digital mammography screening with castillo; 11/14/2019 8:55 am ORDERING CLINICIAN:RAVI DEY INDICATION:Screening. COMPARISON:Comparison is made to prior digital mammograms dated112/17/2017 and08/25/2016 FINDINGS:CC and MLO 2D digital mammograms and digital breast tomosynthesisimages were obtained of the bilateral breasts. 3-D volume images werereconstructed in 4 views at an independent workstation as 1 mm slicesthrough the breasts in both the CC and MLO projections. There are areas of scattered fibroglandular tissue. No discrete massor focal asymmetry is identified. No suspicious microcalcificationsor foci of architectural distortion are seen. There has been nosignificant change. This study was interpreted with CAD. IMPRESSION:No mammographic evidence of malignancy. BI-RADS CATEGORY:Category: 1 - Negative.Recommendation: 1 Year Screening.Electronically signed by: RONNIE BOURNE 11/29/19 08:27 Normal [facility] Work Phone: Otheron 11-14-2019 Please click on the link to view the study images Normal [facility] Work Phone: Interpreted by: IVELISSE PIÑA11/16/19 12:12MRN: [id number] Name: MEKA CAMPOS STUDY:BONE DENSITY, DEXA 1 OR MORE SITES: AXIAL SKELETN; 11/14/2019 8:35 am INDICATION:none Asymptomatic menopausal state. Evaluate forosteopenia/osteoporos is, COMPARISON:None. ORDERING CLINICIAN:RAVI DEY FINDINGS:Standard measurements were obtained utilizing an [employer] X-rayAbsorptiometry bone densitometer. Data obtained includes planar bonedensity measurements over the left hip and lumbar spine. Comparisonof measured data and standardized mean data for a young adultpopulation (when peak bone mass occurs) results in a T score. Thisrepresents the number of standard deviations above or below the meanof a young adult population. Comparison of measured data tostandards from an age-adjusted population similarly yields a Z score. Left femoral neck Bone density: 0.770 g/cm2 T score: -0.7 Z Score: 0.2 Lumbar Spine (L1-4) Bone density: 0.957 g/cm2 T Score: -0.8 overall and -1.3 at L4. Z Score: 0.1 World Health Organization (WHO) criteria defines normal bone densityas that which is less than 1 standard deviation below the mean of ayoung adult population. Osteopenia is defined as a measured bonedensity that is between 1 and 2.5 standard deviations below the meanof a young adult population. Osteoporosis is defined as a measuredbone density that is greater than or equal to 2.5 standard deviationsbelow the mean of a young adult population. IMPRESSION:According to World Health Organization criteria, bone mineral densityof the left femoral neck is within normal limits and lumbar spine isoverall within normal limits with osteopenia at L4. Electronically signed by: IVELISSE PIÑA 11/16/19 12:12 Normal [facility] [employer] [facility] Work Phone: Hematologyon 11-13-2019 Hematocrit (Bld) [Volume fraction] 43.1 % See Below [facility] Work Phone: Comment on above: Reference Range: 36. 0 - 46.0 Hemoglobin (Bld) [Mass/Vol] 14.5 g/dL See Below [facility] [employer] [facility] Work Phone: Comment on above: Reference Range: 12. 0 - 16.0 MCV (RBC) [Entitic vol] 90 fL 80 - 100 [facility] Work Phone: Platelets (Bld) [#/Vol] 376 {x10E9/L} 150 - 450 [facility] [employer] [facility] Work Phone: RBC (Bld) [#/Vol] 4.79 {x10E12/L} See Below [facility] [employer] [facility] Work Phone: Comment on above: Reference Range: 4.0 0 - 5.20 WBC (Bld) [#/Vol] 6.3 {x10E9/L} 4.4 - 11.3 [facility] [employer] [facility] Work Phone: Lipid Panelon 11-13-2019 Cholesterol [Mass/Vol] 259 mg/dL above hig h threshold 0 - 199 [employer] [facility] Work Phone: Comment on above: . AGE DESIRABLE BORD JOANA HIGH HIGH 0-19 Y 0 - 169 170 - 199 >/= 200 20-24 Y 0 - 189 190 - 224 >/= 225 >24 Y 0 - 199 200 - 239 >/= 240 All ranges are based on fasting samples. Specific therapeutic targets will vary based on patient-specific cardiac risk.. Pediatric guidelines reference:Pediatrics 2011, 128(S5). Adult guidelines reference: NCEP ATPIII Guidelines, SAMUEL 2001, 258:2486-97. Venipuncture immediately after or during the administration of Metamizole may lead to falsely low results. Testing should be performed immediately prior to Metamizole dosing. Cholesterol in HDL [Mass/Vol] 64.0 mg/dL [employer] [facility] Work Phone: Comment on above: . AGE VERY LOW LOW N ORMAL HIGH 0-19 Y < 35 < 40 40-45 ---- 20-24 Y ---- < 40 >45 ---- >24 Y ---- < 40 40-60 >60. Cholesterol in LDL [Mass/Vol] 176 mg/dL above high threshold 0 - 99 [employer] [facility] Work Phone: Comment on above: . NEAR BORD AGE DEMETRIA RABLE OPTIMAL HIGH HIGH VERY HIGH 0-19 Y 0 - 109 --- 110-129 >/= 130 ---- 20-24 Y 0 - 119 --- 120-159 >/= 160 ---- >24 Y 0 - 99 100-129 130-159 160-189 >/=190. Cholesterol.total/Chol esterol in HDL [Mass ratio] 4.0 {ratio} [employer] [facility] Work Phone: Comment on above: REF VALUESDESIRABLE < 3.4HIGH RISK > 5.0 Triglyceride [Mass/Vol] 96 mg/dL 0 - 149 [employer] [facility] Work Phone: Comment on above: . AGE DESIRABLE BORD JOANA HIGH HIGH VERY HIGH 0 D-90 D 19 - 174 ---- ---- ----91 D- 9 Y 0 - 74 75 - 99 >/= 100 ---- 10-19 Y 0 - 89 90 - 129 >/= 130 ---- 20-24 Y 0 - 114 115 - 149 >/= 150 ---- >24 Y 0 - 149 150 - 199 200- 499 >/= 500. Venipuncture immediately after or during the administration of Metamizole may lead to falsely low results. Testing should be performed immediately prior to Metamizole dosing. Lipid Panel 19 mg/dL 0 - 40 [facility] Work Phone: Metabolic Panelon 11-13-2019 ALP [Catalytic activity/Vol] 123 U/L above high threshold 33 - 110 [facility] Work Phone: Anion gap [Moles/Vol] 11 mmol/L 10 - 20 [facility] [place] [facility] Work Phone: Bilirubin [Mass/Vol] 0.6 mg/dL 0.0 - 1.2 [facility] [employer] [facility] Work Phone: Calcium [Mass/Vol] 9.8 mg/dL 8.6 - 10.3 [employer] [facility] Work Phone: Chloride [Moles/Vol] 103 mmol/L 98 - 107 [employer] [facility] Work Phone: CO2 [Moles/Vol] 27 mmol/L 21 - 32 [facility] MEXICOPieceable l [place] Work Phone: Creatinine [Mass/Vol] 0.78 mg/dL See Below - [facility] [place] [facility] Work Phone: Comment on above: Reference Range: 0.5 0 - 1.05 Glucose [Mass/Vol] 90 mg/dL 74 - 99 -[employer] [facility] Work Phone: Potassium [Moles/Vol] 4.0 mmol/L 3.5 - 5.3 [facility] [employer] [facility] Work Phone: Protein [Mass/Vol] 7.8 g/dL 6.4 - 8.2 -[employer] [facility] Work Phone: Sodium [Moles/Vol] 137 mmol/L 136 - 145 [facility] Work Phone: Urea nitrogen [Mass/Vol] 16 mg/dL 6 - 23 [facility] Work Phone: Otheron 11-13-2019 Albumin BCP dye [Mass/Vol] 4.3 g/dL 3.4 - 5.0 [facility] Work Phone: ALT With P-5'-P [Catalytic activity/Vol] 19 U/L 7 - 45 [facility] Work Phone: Comment on above: Patients treated wit h Sulfasalazine may generate falsely decreased results for ALT. AST With P-5'-P [Catalytic activity/Vol] 18 U/L 9 - 39 [facility] Work Phone: Erythrocyte distribution width (RBC) [Ratio] 13.8 % See Below [facility] Work Phone: Comment on above: Reference Range: 11. 5 - 14.5 MCHC (RBC) [Mass/Vol] 33.6 g/dL See Below [facility] Work Phone: Comment on above: Reference Range: 32. 0 - 36.0 >60 >60 [facility] Work Phone: Comment on above: CALCULATIONS OF WHITNEY MATED GFR ARE PERFORMED USING THE MDRD STUDY EQUATION FOR THE IDMS-TRACEABLE CREATININE METHODS. CLIN CHEM 2007;53:766-72 TSH - Thyroid Stimulating Ho sandra, Serumon 11-13-2019 TSH Qn 1.50 {mIU/L} See Below [facility] Work Phone: Comment on above: Reference Range: 0.4 4 - 3.98 TSH testing is performed using different testing methodology at [facility] than at other [facility]. Direct result comparisons should only be made within the same method. Otheron 10-16-2018 Please click on the link to view the study images Normal [facility] Work Phone: Otheron 08-25-2016 Please click on the link to view the study images Normal [facility] Work Phone: Otheron 06-29-2015 Please click on the link to view the study images Normal [facility] Work Phone: URINE DAVIS CULTURE (CHONG COL COUNT) ([id number])Ordered By: Filing And Polishing Supervisor on 05-28-2014 Bacteria identified Cx Nom (U) Final report Abnormal [facility] Work Phone: Comment on above: PATIENT NOT FASTINGP ERFORMED BY: UMER [employer] [id number] [facility] [id number] Information: SRC:UR [id number] Bacteria identified Cx Nom (U) Proteus mirabilis Abnormal [facility]; [facility] Work Phone: Comment on above: Greater than 100,000 colony forming units per mL PATIENT NOT FASTINGP ERFORMED BY: UMER [employer] [id number] [place] [facility] [id number] Information: SRC:UR [id number] Other Antibiotic [Susc] MIHEAD Normal [facility]; [facility] Work Phone: Comment on above: S = Susceptibl e; I = Intermediate; R = Resistant P = Positive; N = Negative MICS are expressed in micrograms per mL Antibiotic RSLT#1 RSLT#2 RSLT#3 RSLT#4Amoxicillin/Clavulanic Acid SAmpicillin SCefepime SCeftriaxone SCefuroxime SCephalothin SCiprofloxacin SErtapenem SGentamicin SLevofloxacin SNitrofurantoin RPiperacillin STetracycline RTobramycin STrimethoprim/Sulfa S PATIENT NOT FASTINGP ERFORMED BY: UMER [facility] [id number] [facility] [id number] Information: SRC:UR [id number] Urinalysis, Office ([id number])Or dered By: Abbey Flores on 05-28-2014 Bilirubin Ql (U) Negative Normal Comprehe [facility]; [facility] Work Phone: Glucose Test strip (U) [Mass/Vol] Negative Normal [facility] Work Phone: Hemoglobin Ql (U) Negative Normal Compreh [facility]ive [facility]; [facility] Work Phone: Ketones Ql (U) Negative Normal Comprehens [facility]; [facility] Work Phone: Leukocyte esterase Test strip Ql (U) Negative Normal [facility]; [facility] Work Phone: Nitrite Ql (U) Negative Normal Comprehens [facility]; [facility] Work Phone: pH (U) 5 [pH] Abnormal [facility]; [facility] Work Phone: Protein Ql (U) Negative Normal Comprehens [facility]; [facility] Work Phone: Specific gravity (U) [Rel density] 1.015 1 Normal [facility]; [facility] Work Phone: Urobilinogen (24H U) [Mass/Time] Normal Normal [facility]; [facility] Work Phone: URINE DAVIS CULTURE[place]IDENTIFICA [place] ([id number])Ordered By: Filing And Polishing Supervisor on 03-05-2014 Bacteria identified Cx Nom (U) Final report Abnormal [facility]; [facility] Work Phone: Comment on above: PATIENT NOT FASTINGP ERFORMED BY: [facility] [id number] Information: [id number] Bacteria identified Cx Nom (U) ECV Abnormal [facility]; [facility] Work Phone: Comment on above: Escherichia coli, id entified by an automated biochemical system.Greater than 100,000 colony forming units per mLMixed urogenital flora3,000 Colonies/mL S = Susceptible; I = Intermediate; R = Resistant P = Positive; N = Negative MICS are expressed in micrograms per mL Antibiotic RSLT#1 RSLT#2 RSLT#3 RSLT#4Amoxicillin/Clavulanic Acid RAmpicillin RCefazolin RCefepime SCeftriaxone SCefuroxime ICephalothin RCiprofloxacin SErtapenem SGentamicin SImipenem SLevofloxacin SNitrofurantoin SPiperacillin RTetracycline RTobramycin STrimethoprim/Sulfa R PATIENT NOT FASTINGP ERFORMED BY: UMER [employer] 170 [facility] [id number] Information: [id number] Urinalysis, Office ([id number])on 03-05-2014 Bilirubin Ql (U) Negative Normal Comprehe nsive [facility]; [facility] Work Phone: Glucose Test strip (U) [Mass/Vol] Negative Normal [facility]; [facility] Work Phone: Hemoglobin Ql (U) Hemolyzed Small Normal Co [facility]; [facility] Work Phone: Ketones Ql (U) Negative Normal Comprehens [facility]; [facility] Work Phone: Leukocyte esterase Test strip Ql (U) Small Normal [facility]; [facility] Work Phone: Nitrite Ql (U) Negative Normal Comprehens [facility]; [facility] Work Phone: pH (U) 6 [pH] Abnormal [facility]; [facility] Work Phone: Comment on above: 5.5 Protein Ql (U) Negative Normal Comprehens [facility]; [facility] Work Phone: Specific gravity (U) [Rel density] 1.025 1 Normal [facility]; [facility] Work Phone: Urobilinogen (24H U) [Mass/Time] Normal Normal [facility]; [facility] Work Phone: GARDNERELLA VAG, NUCLEIC ACI D DIR PROBE ([id number])Ordered By: Filing And Polishing Supervisor on 06-15-2012 GARDNERELLA VAG, NUCLEIC ACID DIR PROBE ([id number]) Negative Normal [facility]; [facility] Work Phone: Comment on above: PATIENT NOT FASTINGP ERFORMED BY: UMER [facility] [id number] [facility] [id number] Information: [id number] Urinalysis, Office ([id number])on 06-15-2012 Bilirubin Ql (U) Negative Normal Comprehe ns[facility]; [facility] Work Phone: Glucose Test strip (U) [Mass/Vol] Negative Normal [facility]; [facility] Work Phone: Hemoglobin Ql (U) Negative Normal Compreh [facility]; [facility] Work Phone: Ketones Ql (U) Negative Normal Comprehens [facility]; [facility] Work Phone: Leukocyte esterase Test strip Ql (U) Small Normal [facility]; [facility] Work Phone: Nitrite Ql (U) Negative Normal Comprehens [facility]; [facility] Work Phone: pH (U) 5.0 [pH] Normal [facility]; [facility] Work Phone: Comment on above: 5.5 Protein Ql (U) Negative Normal Comprehens [facility]; [facility] Work Phone: Specific gravity (U) [Rel density] 1.025 1 Normal [facility]; [facility] Work Phone: Urobilinogen (24H U) [Mass/Time] Normal Normal [facility]; [facility] Work Phone: Urinalysis, Office ([id number])Or dered By: Rose Seo on 10-13-2011 Bilirubin Ql (U) Negative Normal Comprehe nsive [facility]; [facility] Work Phone: Glucose Test strip (U) [Mass/Vol] Negative Normal [facility]; [facility] Work Phone: Hemoglobin Ql (U) Negative Normal Compreh [facility]; [facility] Work Phone: Ketones Ql (U) Negative Normal Comprehens [facility]; [facility] Work Phone: Leukocyte esterase Test strip Ql (U) Negative Normal [facility]; [facility] Work Phone: Nitrite Ql (U) Negative Normal Comprehens [facility]; [facility] Work Phone: pH (U) 7.0 [pH] Normal [facility]; [facility] Work Phone: Protein Ql (U) Negative Normal Comprehens [facility]; [facility] Work Phone: Specific gravity (U) [Rel density] 1.015 1 Normal [facility]; [facility] Work Phone: Urobilinogen (24H U) [Mass/Time] Normal Normal [facility]; [facility] Work Phone: Urine Test, Office ([id number])Ordered By: Rose Seo on 10-13-2011 Beta HCG ( test) Ql (U) Negative Normal [facility]; [facility] Work Phone: GARDNERELLA VAG, NUCLEIC ACI D DIR PROBE ([id number])Ordered By: Filing And Polishing Supervisor on 08-09-2011 GARDNERELLA VAG, NUCLEIC ACID DIR PROBE ([id number]) Negative Normal [facility]; [facility] Work Phone: Comment on above: PATIENT NOT FASTINGP ERFORMED BY: [employer]70 [facility] [id number] Information: [id number] GARDNERELLA VAG, NUCLEIC ACID DIR PROBE ([id number]) Positive Abnormal [facility]; [facility] Work Phone: Comment on above: PATIENT NOT FASTINGP ERFORMED BY: [facility] Sctfay3904 [facility] [id number] Information: [id number] URINE DAVIS CULTURE-IDENTIFICA [place] ([id number])Ordered By: Filing And Polishing Supervisor on 08-09-2011 Bacteria identified Cx Nom (U) Final report Normal [facility]; [facility] Work Phone: Comment on above: PATIENT NOT FASTINGP ERFORMED BY: [facility] Afmdve4959 [facility] [id number] Information: [id number] Bacteria identified Cx Nom (U) MUG Normal [facility]; [facility] Work Phone: Comment on above: Mixed urogenital federico ra2,000 Colonies/mL PATIENT NOT FASTINGP ERFORMED BY: UMER [facility] Cjdmci6063 [facility] [id number] Information: [id number] Urinalysis, Office ([id number])Or dered By: Tia Benito on 08-09-2011 Bilirubin Ql (U) Negative Normal Comprehe nsive [facility]; [facility] Work Phone: Glucose Test strip (U) [Mass/Vol] Negative Normal [facility]; [facility] Work Phone: Hemoglobin Ql (U) Negative Normal Compreh [facility]; [facility] Work Phone: Ketones Ql (U) Negative Normal Comprehens [facility]; [facility] Work Phone: Leukocyte esterase Test strip Ql (U) Trace Normal [facility]; [facility] Work Phone: Nitrite Ql (U) Negative Normal Comprehens [facility]; [facility] Work Phone: pH (U) 6.0 [pH] Normal [facility]; [facility] Work Phone: Protein Ql (U) Negative Normal Comprehens [facility]; [facility] Work Phone: Specific gravity (U) [Rel density] 1.010 1 Normal [facility]; [facility] Work Phone: Urobilinogen (24H U) [Mass/Time] Normal Normal [facility]; [facility] Work Phone: DAVIS CULTURE-OTHER ([id number])Ord ered By: Filing And Polishing Supervisor on 12-17-2010 Bacteria identified Respiratory culture Nom (Unsp spec) Final report Normal [facility]; [facility] Work Phone: Comment on above: PATIENT NOT FASTINGP ERFORMED BY: [facility] Lomzcz4752 [facility] [id number] Information: SRC:THRT [id number] Bacteria identified Respiratory culture Nom (Unsp spec) RRF Normal [facility]; [facility] Work Phone: Comment on above: Routine respiratory gabriella PATIENT NOT FASTINGP ERFORMED BY: [facility]Tr[facility] HospitalRubwed0449 [facility] [id number] Information: SRC:OMAIRA [id number] Rapid Strep Test, Office ([phone])Ordered By: Scar Chaudhari on 12-17-2010 S. pyogenes Ag EIA Ql (Throat) Negative Normal [facility]; [facility] Work Phone: Urinalysis, Office ([id number])Or dered By: Scar Chaudhari on 08-20-2010 Bilirubin Ql (U) Negative Normal Comprehe nsive [facility]; [facility] Work Phone: Glucose Test strip (U) [Mass/Vol] Negative Normal [facility]; [facility] Work Phone: Hemoglobin Ql (U) Negative Normal Compreh [facility]; [facility] Work Phone: Ketones Ql (U) Negative Normal Comprehens [facility]; [facility] Work Phone: Leukocyte esterase Test strip Ql (U) Negative Normal [facility]; [facility] Work Phone: Nitrite Ql (U) Negative Normal Comprehens [facility]; [facility] Work Phone: pH (U) 5.0 [pH] Normal [facility]; [facility] Work Phone: Protein Ql (U) Negative Normal Comprehens [facility]; [facility] Work Phone: Specific gravity (U) [Rel density] 1.010 1 Normal [facility]; [facility] Work Phone: Urobilinogen (24H U) [Mass/Time] Normal Normal [facility]; [facility] Work Phone: Urine Test, Office ([id number])Ordered By: Nga Long on 11-17-2008 Beta HCG ( test) Ql (U) Positive Normal [facility]; [facility] Work Phone: Thin prep Pap ([id number])Ordered By: Berta Vargas on 08-26-2008 Microscopic observation Other stain Nom (Unsp spec) . Normal Comprehens [facility]; [facility] Work Phone: Comment on above: Source.............C ervical;EndocervicalLMP / Prev Treat...IHI=[id number]. of containers..01 CYTYC Thin Prep VialPATIENT NOT FASTINGClinical Information: ADD [id number] PERFORMED BY: [employer] [address] [id number] Pathology report final diagnosis Narrative SPRCS Normal Comprehensiv e Internal Medicine; [facility] Work Phone: Comment on above: NEGATIVE FOR INTRAEP ITHELIAL LESION AND MALIGNANCY.THIS SPECIMEN WAS RESCREENED PART OF OUR [employer]EN [employer] ARCHITECT PROGRAM.Satisfactory for evaluation. Endocervical and/or squamous metaplasticcells (endocervical component) are present.V72.31 ; Routine gynecological examinationChasya Wilks, Staff Auditor (ASCP)Seble Lutz, Supervisory Staff Auditor (ASCP) Source.............C ervical;EndocervicalLMP / Prev Treat...WUT=[id number]. of containers..01 CYTYC Thin Prep VialPATIENT NOT FASTINGClinical Information: ADD [id number] PERFORMED BY: [employer] [address] [id number] Thin prep Pap ([id number]) PAPSMR Normal [facility] prehensive Internal Medicine; [facility] Work Phone: Comment on above: The Pap smear is a s creening test designed to aid in the detection ofpremalignant and malignant conditions of the uterine cervix. It is not adiagnostic procedure and should not be used as the sole means of detectingcervical cancer. Both false-positive and false-negative reports do occur. .The HPV DNA reflex criteria were not met with this specimen resulttherefore, no HPV testing was performed. . Source.............C ervical;EndocervicalLMP / Prev Treat...MIV=[id number]. of containers..01 CYTYC Thin Prep VialPATIENT NOT FASTINGClinical Information: ADD [id number] PERFORMED BY: [facility] [id number] Urinalysis, Office ([id number])Or dered By: DOC Cadrona on 08-26-2008 Bilirubin Ql (U) Negative Normal Comprehe nsive [facility]; [facility] Work Phone: Glucose Test strip (U) [Mass/Vol] Negative Normal [facility]; [facility] Work Phone: Hemoglobin Ql (U) Negative Normal Compreh ensive [facility]; [facility] Work Phone: Ketones Ql (U) Negative Normal Comprehens [facility]; [facility] Work Phone: Leukocyte esterase Test strip Ql (U) Moderate Normal [facility]; [facility] Work Phone: Nitrite Ql (U) Negative Normal Comprehens [facility]; [facility] Work Phone: pH (U) 7.0 [pH] Normal [facility]; [facility] Work Phone: Protein Ql (U) Negative Normal Comprehens [facility]; [facility] Work Phone: Specific gravity (U) [Rel density] 1.015 1 Normal [facility]; [facility] Work Phone: Urobilinogen (24H U) [Mass/Time] 2 mg/dL Normal [facility]; [facility] Work Phone: Urine Test, Office ([id number])Ordered By: Berta Vargas on 08-26-2008 Beta HCG ( test) Ql (U) Negative Normal [facility]; [facility] Work Phone: Thin prep Pap ([id number])Ordered By: DOC Cardona on 08-23-2007 Thin prep Pap ([id number]) SPRCS Normal Com prehensive [facility]; [facility] Work Phone: Comment on above: NEGATIVE FOR INTRAEP ITHELIAL LESION AND MALIGNANCY.Satisfactory for evaluation. No endocervical component is identified.V72.31 ; Routine gynecological examinationSjennifer Bernabe Staff Auditor (ASCP) Source.............C ervical;EndocervicalLMP / Prev Treat...TFE=[id number]. of containers..01 CYTYC Thin Prep VialPATIENT NOT FASTINGPERFORMED BY: [employer] [address] [id number] Thin prep Pap ([id number]) . Normal Com prehens[facility]; [facility] Work Phone: Comment on above: Source.............C ervical;EndocervicalLMP / Prev Treat...WQA=[id number]. of containers..01 CYTYC Thin Prep VialPATIENT NOT FASTINGPERFORMED BY: [employer] [address] [id number] Thin prep Pap ([id number]) PAPSMR Normal Com prehensive [facility]; [facility] Work Phone: Comment on above: The Pap smear is a s creening test designed to aid in the detection ofpremalignant and malignant conditions of the uterine cervix. It is not adiagnostic procedure and should not be used as the sole means of detectingcervical cancer. Both false-positive and false-negative reports do occur. .The HPV DNA reflex criteria were not met with this specimen resulttherefore, no HPV testing was performed. . Source.............C ervical;EndocervicalLMP / Prev Treat...FVU=[id number]. of containers..01 CYTYC Thin Prep VialPATIENT NOT FASTINGPERFORMED BY: [employer] [address] [id number] Vital Signs Date Time Vital Sign Value Performing Clinician Facility 09-19-2023 15:17-0500 Body height 170.[address] Scar Apodaca Work Phone: [facility] 09-19-2023 15:17-0500 Diastolic blood pressure 83 mm[Hg] Dr. Scar Apodaca Work Phone: [facility] 09-19-2023 15:17-0500 Systolic blood pressure 134 mm[Hg] Dr. Scar Apodaca Work Phone: [facility] 09-19-2023 15:16-0500 Body mass index (BMI) [Ratio] 32.8 kg/m2 Dr. Scar Apodaca Work Phone: [facility] 09-19-2023 15:16-0500 Body weight 95.[address] Scar Apodaca Work Phone: [facility] 08-08-2023 09:56-0400 Body height 170.18 cm Abbey Flores [facility]; [facility] Work Phone: 08-08-2023 09:56-0400 Body mass index (BMI) [Ratio] 32.51 kg/m2 Abbey Flores [facility]; [facility] Work Phone: 08-08-2023 09:56-0400 Body surface area Derived from formula 2.05 m2 Abbey Flores [facility]; [facility] Work Phone: 08-08-2023 09:56-0400 Body temperature 98.5 [degF] Abbey Flores [facility]; [facility] Work Phone: Comment on above: Method: Thermal Scan 08-08-2023 09:56-0400 Body weight 94.15 kg Abbey Flores [facility]; [facility] Work Phone: 08-08-2023 09:56-0400 Diastolic blood pressure 72 mm[Hg] Abbey Flores [facility]; [facility] Work Phone: Comment on above: Patient Position: Sitting; Cuff Location : Left Arm; Cuff Size: Standard 08-08-2023 09:56-0400 Heart rate 74 /min Abbey Flores [facility]; [facility] Work Phone: Comment on above: Pattern: Regular 08-08-2023 09:56-0400 Respiratory rate 16 /min Abbey Flores [facility]; [facility] Work Phone: Comment on above: Pattern: Unlabored 08-08-2023 09:56-0400 SaO2% (BldA) [Mass fraction] 97 % Abbey Flores [facility]; [facility] Work Phone: Comment on above: Room air 08-08-2023 09:56-0400 Systolic blood pressure 114 mm[Hg] Abbey Flores [facility]; [facility] Work Phone: Comment on above: Patient Position: Sitting; Cuff Location : Left Arm; Cuff Size: Standard 07-31-2023 10:34-0400 Body height 170.[address] Scar Apodaca Work Phone: [facility] 07-31-2023 10:34-0400 Body mass index (BMI) [Ratio] 31.9 kg/m2 Dr. Scar Apodaca Work Phone: [facility] 07-31-2023 10:34-0400 Body weight 92.[address] Scar Apodaca Work Phone: [facility] 07-31-2023 10:34-0400 Diastolic blood pressure 83 mm[Hg] Dr. Scar Apodaca Work Phone: [facility] 07-31-2023 10:34-0400 Heart rate 83 /min Dr. Scar Apodaca Work Phone: [facility] 07-31-2023 10:34-0400 Respiratory rate 16 /min Dr. Scar Apodaca Work Phone: [facility] 07-31-2023 10:34-0400 SaO2% (BldA) [Mass fraction] 95 % Dr. Scar Apodaca Work Phone: [facility] 07-31-2023 10:34-0400 Systolic blood pressure 120 mm[Hg] Dr. Scar Apodaca Work Phone: [facility] 12-23-2022 08:41-0500 Body height 167.64 cm Scar Garlander Work Phone: [facility] Work Phone: 12-23-2022 08:41-0500 Body mass index (BMI) [Ratio] 33.25 kg/m2 Scar Britta Oberhauser Work Phone: [facility] Work Phone: 12-23-2022 08:41-0500 Body surface area Derived from formula 2.03 m2 Scar Apodaca Work Phone: [facility] Work Phone: 12-23-2022 08:41-0500 Body weight 93.44 kg Scar Rusherhauser Work Phone: [facility] Work Phone: 12-23-2022 08:41-0500 Diastolic blood pressure 77 mm[Hg] Scar Britta Oberhauser Work Phone: [facility] Work Phone: 12-23-2022 08:41-0500 Heart rate 76 /min Scar Rusherhauser Work Phone: [facility] Work Phone: 12-23-2022 08:41-0500 Systolic blood pressure 118 mm[Hg] Scar L Oberhauser Work Phone: [facility] Work Phone: 08-11-2022 08:32-0400 Body height 167.64 cm Scar L Oberhauser Work Phone: [facility] 300 Work Phone: 08-11-2022 08:32-0400 Body mass index (BMI) [Ratio] 33.25 kg/m2 Scar L Oberhauser Work Phone: [facility] 300 Work Phone: 08-11-2022 08:32-0400 Body surface area Derived from formula 2.03 m2 Scar L Oberhauser Work Phone: [facility] 300 Work Phone: 08-11-2022 08:32-0400 Body temperature 97.1 [degF] Scar L Oberhauser Work Phone: [facility] 300 Work Phone: 08-11-2022 08:32-0400 Body weight 93.44 kg Scar L Oberhauser Work Phone: [facility] 300 Work Phone: 08-04-2022 15:17-0400 Body height 167.64 cm Scar L Oberhauser Work Phone: [facility] Work Phone: 08-04-2022 15:17-0400 Body mass index (BMI) [Ratio] 33.25 kg/m2 Scar L Oberhauser Work Phone: [facility] Work Phone: 08-04-2022 15:17-0400 Body surface area Derived from formula 2.03 m2 Scar L Oberhauser Work Phone: [facility] Work Phone: 08-04-2022 15:17-0400 Body weight 93.44 kg Scar L Oberhauser Work Phone: [facility] Work Phone: 08-04-2022 15:17-0400 Diastolic blood pressure 80 mm[Hg] Scar L Oberhauser Work Phone: [facility] Work Phone: 08-04-2022 15:17-0400 Heart rate 83 /min Scar Pérez Oberhauser Work Phone: [facility] Work Phone: 08-04-2022 15:17-0400 Systolic blood pressure 128 mm[Hg] Scar L Oberhauser Work Phone: [facility] Work Phone: 04-25-2022 12:54-0400 Body height 170.1 cm Ravi Stencel Other Phone: [facility] 04-25-2022 12:54-0400 Body temperature 98.6 [degF] Ravi Stencel Other Phone: [facility] 04-25-2022 12:54-0400 Diastolic blood pressure 77 mm[Hg] Ravi Stencel Other Phone: [facility] 04-25-2022 12:54-0400 Heart rate 69 /min Ravi Stencel Other Phone: [facility] 04-25-2022 12:54-0400 Respiratory rate 16 /min Ravi Stencel Other Phone: [facility] 04-25-2022 12:54-0400 SaO2% (BldA) [Mass fraction] 98 % Ravi Stencel Other Phone: [facility] 04-25-2022 12:54-0400 Systolic blood pressure 111 mm[Hg] Ravi Stencel Other Phone: [facility] 01-04-2022 10:33-0500 Body height 167.6 cm Ravi Stencel Other Phone: [facility] 01-04-2022 10:33-0500 Body temperature 98.6 [degF] Ravi Stencel Other Phone: [facility] 01-04-2022 10:33-0500 Diastolic blood pressure 84 mm[Hg] Ravi Baercel Other Phone: [facility] 01-04-2022 10:33-0500 Heart rate 77 /min Ravi Baercel Other Phone: [facility] 01-04-2022 10:33-0500 Respiratory rate 16 /min Ravi Baercel Other Phone: [facility] 01-04-2022 10:33-0500 SaO2% (BldA) [Mass fraction] 98 % Ravi Baercel Other Phone: [facility] 01-04-2022 10:33-0500 Systolic blood pressure 131 mm[Hg] Ravi Baercel Other Phone: [facility] 12-15-2021 09:38-0500 Body height 167.64 cm Ravi Hussein Stencel Work Phone: [place] [address] [address] [place] Work Phone: 12-15-2021 09:38-0500 Body mass index (BMI) [Ratio] 33.02 kg/m2 Ravi Hussein Stencel Work Phone: [place] [address] [address] Work Phone: 12-15-2021 09:38-0500 Body surface area Derived from formula 2.02 m2 Ravi Keenan Stencel Work Phone: [place] [address] [address] Work Phone: 12-15-2021 09:38-0500 Body temperature 98.6 [degF] Ravi Hussein Stencel Work Phone: [place] [address] [address] Work Phone: 12-15-2021 09:38-0500 Body weight 92.8 kg Ravi Hussein Stencel Work Phone: [place] [address] [address] Work Phone: 12-15-2021 09:38-0500 Diastolic blood pressure 80 mm[Hg] Ravi Hussein Stencel Work Phone: [address] Work Phone: 12-15-2021 09:38-0500 Systolic blood pressure 120 mm[Hg] Ravi Dey Work Phone: [address] Work Phone: 11-15-2021 08:25-0500 Body height 167.64 cm Ravi Dey Work Phone: [address] Work Phone: 11-15-2021 08:25-0500 Body mass index (BMI) [Ratio] 31.96 kg/m2 Ravi Dey Work Phone: [address] Work Phone: 11-15-2021 08:25-0500 Body surface area Derived from formula 1.99 m2 Ravi Dey Work Phone: [address] Work Phone: 11-15-2021 08:25-0500 Body weight 89.81 kg Ravi Dey Work Phone: [address] Work Phone: 12-14-2020 12:19-0500 BMI (Body Mass Index) 32.13 kg/m2 Ravi Dey [address] Work Phone: 12-14-2020 12:19-0500 Body Temperature 97.7 [degF] [facility] [address] [place], [place] [address] Work Phone: 12-14-2020 12:19-0500 Body weight 90.3 kg [facility] [address] [place], [place] [address] Work Phone: 12-14-2020 12:19-0500 BP Diastolic 74 mm[Hg] Ravi Yissel [facility] [address] Work Phone: 12-14-2020 12:19-0500 BP Systolic 110 mm[Hg] [facility] [address] Work Phone: 12-14-2020 12:19-0500 BSA (Body Surface Area) 2 m2 Ravi Dey [facility] [address] Work Phone: 12-14-2020 12:19-0500 Height 167.64 cm [facility] [address] Work Phone: 11-13-2020 10:34-0500 BMI (Body Mass Index) 31.72 kg/m2 Ravi Dey [facility] Work Phone: 11-13-2020 10:34-0500 Body Temperature 97.3 [degF] Ravi Dey [facility] Work Phone: 11-13-2020 10:34-0500 Body weight 89.13 kg Ravi Dey [facility] Work Phone: 11-13-2020 10:34-0500 BP Diastolic 72 mm[Hg] Ravi Dey [facility] Work Phone: 11-13-2020 10:34-0500 BP Systolic 110 mm[Hg] Ravi Dey [facility] Work Phone: 11-13-2020 10:34-0500 BSA (Body Surface Area) 1.99 m2 Ravi Dey [facility] Work Phone: 11-13-2020 10:34-0500 Height 167.64 cm Ravi Dey [facility] Work Phone: 11-13-2020 10:34-0500 Pulse (Heart Rate) 85 /min Ravi Dey [facility] Work Phone: 11-13-2020 10:34-0500 Pulse Oximetry 98 % Ravi Baeraris [facility] Work Phone: 11-13-2019 12:49-0500 BMI (Body Mass Index) 30.99 kg/m2 Ravi Dey [facility] Work Phone: 11-13-2019 12:49-0500 Body weight 87.09 kg Ravi Dey [facility] Work Phone: 11-13-2019 12:49-0500 BP Diastolic 90 mm[Hg] Ravi Dey [facility] Work Phone: 11-13-2019 12:49-0500 BP Systolic 134 mm[Hg] Ravi Dey [facility] Work Phone: 11-13-2019 12:49-0500 BSA (Body Surface Area) 1.97 m2 Ravi Dey [facility] Work Phone: 11-13-2019 12:49-0500 Height 167.64 cm Ravi Dey [facility] Work Phone: 11-13-2019 12:49-0500 Pulse (Heart Rate) 72 /min Ravi Dey [facility] Work Phone: 06-24-2014 15:21-0400 Body height 170.18 cm Abbey SanchezCheckr [facility]; [facility] Work Phone: 06-24-2014 15:21-0400 Body mass index (BMI) [Ratio] 27.81 kg/m2 Abbey StephenSproxil [facility]; [facility] Work Phone: 06-24-2014 15:21-0400 Body surface area Derived from formula 1.92 m2 Abbey MitchellSproxil [facility]; [facility] Work Phone: 06-24-2014 15:21-0400 Body weight 80.54 kg Abbey ManSproxil [facility]; [facility] Work Phone: 06-24-2014 15:21-0400 Diastolic blood pressure 80 mm[Hg] Abbey [facility]cos[facility]; [facility] Work Phone: Comment on above: Patient Position: Sitting; Cuff Location : Left Arm; Cuff Size: Standard 06-24-2014 15:21-0400 Heart rate 82 /min Abbey Flores [facility]; [facility] Work Phone: Comment on above: Pattern: Regular 06-24-2014 15:21-0400 Respiratory rate 16 /min Abbey Flores [facility]; [facility] Work Phone: Comment on above: Pattern: Unlabored 06-24-2014 15:21-0400 SaO2% (BldA) [Mass fraction] 97 % Abbey Flores [facility]; [facility] Work Phone: Comment on above: Room air 06-24-2014 15:21-0400 Systolic blood pressure 118 mm[Hg] Abbey Flores [facility]; [facility] Work Phone: Comment on above: Patient Position: Sitting; Cuff Location : Left Arm; Cuff Size: Standard 05-28-2014 11:22-0400 Body temperature 98.6 [degF] Debbie A Fast DO Work Phone: [facility]; [facility] Work Phone: Comment on above: Method: Oral 05-28-2014 11:22-0400 SaO2% (BldA) [Mass fraction] 96 % Debbie A Fast DO Work Phone: [facility]; [facility] Work Phone: Comment on above: Room air 05-28-2014 09:58-0400 Body height 170.18 cm Abbey Flores [facility]; [facility] Work Phone: 05-28-2014 09:58-0400 Body mass index (BMI) [Ratio] 27.81 kg/m2 Abbey Flores [facility]; [facility] Work Phone: 05-28-2014 09:58-0400 Body surface area Derived from formula 1.92 m2 Abbey Flores [facility]; [facility] Work Phone: 05-28-2014 09:58-0400 Body weight 80.54 kg Abbey Flores CMA [facility]; [facility] Work Phone: 05-28-2014 09:58-0400 Diastolic blood pressure 72 mm[Hg] Abbey Flores [facility]; [facility] Work Phone: Comment on above: Patient Position: Sitting; Cuff Location : Left Arm; Cuff Size: Standard 05-28-2014 09:58-0400 Heart rate 86 /min Abbey Flores [facility]; [facility] Work Phone: Comment on above: Pattern: Regular 05-28-2014 09:58-0400 Respiratory rate 16 /min Abbey Flores [facility]; [facility] Work Phone: Comment on above: Pattern: Unlabored 05-28-2014 09:58-0400 Systolic blood pressure 126 mm[Hg] Abbey Flores [facility]; [facility] Work Phone: Comment on above: Patient Position: Sitting; Cuff Location : Left Arm; Cuff Size: Standard 04-10-2014 08:15-0400 Body height 170.18 cm DOC Cardona LPN [facility]; [facility] Work Phone: 04-10-2014 08:15-0400 Body mass index (BMI) [Ratio] 27.88 kg/m2 DOC Cardona LPN [facility]; [facility] Work Phone: 04-10-2014 08:15-0400 Body surface area Derived from formula 1.92 m2 DOC Cardona LPN [facility]; [facility] Work Phone: 04-10-2014 08:15-0400 Body temperature 97.6 [degF] DOC Cardona LPN [facility]; [facility] Work Phone: Comment on above: Method: Oral 04-10-2014 08:15-0400 Body weight 80.74 kg DOC Cardona LPN [facility]; [facility] Work Phone: 04-10-2014 08:15-0400 Diastolic blood pressure 74 mm[Hg] DOC Cardona LPN [facility]; [facility] Work Phone: Comment on above: Patient Position: Sitting; Cuff Location : Left Arm; Cuff Size: Standard 04-10-2014 08:15-0400 Heart rate 70 /min DOC Cardona [employer] PROFESSOR [facility]; [facility] Work Phone: Comment on above: Pattern: Regular 04-10-2014 08:15-0400 Respiratory rate 20 /min DOC Cardona JAEL [facility]; [facility] Work Phone: Comment on above: Pattern: Unlabored 04-10-2014 08:15-0400 Systolic blood pressure 114 mm[Hg] DOC Cardona JAEL [facility]; [facility] Work Phone: Comment on above: Patient Position: Sitting; Cuff Location : Left Arm; Cuff Size: Standard 03-20-2014 10:260400 Body height 170.18 cm DOC Cardona JAEL [facility]; [facility] Work Phone: 03-20-2014 10:26-0400 Body mass index (BMI) [Ratio] 27.88 kg/m2 DOC Cardona JAEL [facility]; [facility] Work Phone: 03-20-2014 10:26-0400 Body surface area Derived from formula 1.92 m2 DOC Cardona JAEL [facility]; [facility] Work Phone: 03-20-2014 10:26-0400 Body temperature 98 [degF] DOC Cardona JAEL [facility]; [facility] Work Phone: Comment on above: Method: Oral 03-20-2014 10:260400 Body weight 80.74 kg DOC Cardona JAEL [facility]; [facility] Work Phone: 03-20-2014 10:26-0400 Diastolic blood pressure 74 mm[Hg] DOC Cardona JAEL [facility]; [facility] Work Phone: Comment on above: Patient Position: Sitting; Cuff Location : Left Arm; Cuff Size: Standard 03-20-2014 10:26-0400 Heart rate 74 /min DOC Cardona JAEL [facility]; [facility] Work Phone: Comment on above: Pattern: Regular 03-20-2014 10:26-0400 Respiratory rate 20 /min DOC Cardona JAEL [facility]; [facility] Work Phone: Comment on above: Pattern: Unlabored 03-20-2014 10:26-0400 Systolic blood pressure 116 mm[Hg] DOC Cardona JAEL [facility]; [facility] Work Phone: Comment on above: Patient Position: Sitting; Cuff Location : Left Arm; Cuff Size: Standard 03-10-2014 09:53-0400 Body height 170.18 cm Abbey MitchellSproxil [facility]; [facility] Work Phone: 03-10-2014 09:53-0400 Body mass index (BMI) [Ratio] 27.95 kg/m2 Abbey DanielCheckr [facility]; [facility] Work Phone: 03-10-2014 09:53-0400 Body surface area Derived from formula 1.93 m2 Abbey MitchellSproxil [facility]; [facility] Work Phone: 03-10-2014 09:53-0400 Body temperature 98.2 [degF] Abbey Stephencos[facility] regional [facility] centerCheckr [facility]; [facility] Work Phone: Comment on above: Method: Temporal 03-10-2014 09:53-0400 Body weight 80.94 kg Abbey SanchezCheckr [facility]; [facility] Work Phone: 03-10-2014 09:53-0400 Diastolic blood pressure 78 mm[Hg] Abbey DanielCheckr [facility]; [facility] Work Phone: Comment on above: Patient Position: Sitting; Cuff Location : Left Arm; Cuff Size: Standard 03-10-2014 09:53-0400 Heart rate 77 /min Abbey StephenSproxil [facility]; [facility] Work Phone: Comment on above: Pattern: Regular 03-10-2014 09:53-0400 Respiratory rate 16 /min Abbey [employer] [facility]; [facility] Work Phone: Comment on above: Pattern: Unlabored 03-10-2014 09:53-0400 SaO2% (BldA) [Mass fraction] 97 % Abbey Flores [facility]; [facility] Work Phone: Comment on above: Room air 03-10-2014 09:53-0400 Systolic blood pressure 115 mm[Hg] Abbey Sanchezjina [facility]; [facility] Work Phone: Comment on above: Patient Position: Sitting; Cuff Location : Left Arm; Cuff Size: Standard 03-06-2014 10:16-0400 Body height 170.18 cm Rose Seo RN [facility]; [facility] Work Phone: 03-06-2014 10:16-0400 Body mass index (BMI) [Ratio] 27.95 kg/m2 Rose Seo RN [facility]; [facility] Work Phone: 03-06-2014 10:16-0400 Body surface area Derived from formula 1.93 m2 Rose Seo RN [facility]; [facility] Work Phone: 03-06-2014 10:16-0400 Body temperature 97.7 [degF] Rose Seo RN [facility]; [facility] Work Phone: Comment on above: Method: Oral 03-06-2014 10:16-0400 Body weight 80.94 kg Rose Seo RN [facility]; [facility] Work Phone: 03-06-2014 10:16-0400 Diastolic blood pressure 68 mm[Hg] Rose Seo RN [facility]; [facility] Work Phone: Comment on above: Patient Position: Sitting; Cuff Location : Left Arm; Cuff Size: Large 03-06-2014 10:16-0400 Heart rate 68 /min Rose Seo RN [facility]; [facility] Work Phone: Comment on above: Pattern: Regular 03-06-2014 10:16-0400 Respiratory rate 20 /min Rose Seo RN [facility]; [facility] Work Phone: Comment on above: Pattern: Unlabored 03-06-2014 10:160400 SaO2% (BldA) [Mass fraction] 98 % Rose Seo RN [facility]; [facility] Work Phone: Comment on above: Room air 03-06-2014 10:160400 Systolic blood pressure 122 mm[Hg] Rose Seo RN [facility]; [facility] Work Phone: Comment on above: Patient Position: Sitting; Cuff Location : Left Arm; Cuff Size: Large 03-05-2014 08:210400 Body height 170.18 cm Nga Long LPN [facility]; [facility] Work Phone: 03-05-2014 08:210400 Body mass index (BMI) [Ratio] 27.95 kg/m2 Nga Long LPN [facility]; [facility] Work Phone: 03-05-2014 08:210400 Body surface area Derived from formula 1.93 m2 Nga Long LPN [facility]; [facility] Work Phone: 03-05-2014 08:210400 Body temperature 99.1 [degF] Nga Long LPN [facility]; [facility] Work Phone: Comment on above: Method: Oral 03-05-2014 08:0400 Body weight 80.94 kg Nga Long LPN [facility]; [facility] Work Phone: 03-05-2014 08:210400 Diastolic blood pressure 70 mm[Hg] Nga Long LPN [facility]; [facility] Work Phone: Comment on above: Patient Position: Sitting; Cuff Location : Left Arm; Cuff Size: Standard 03-05-2014 08:21-0400 Heart rate 86 /min Nga Long LPN [facility]; [facility] Work Phone: Comment on above: Pattern: Regular 03-05-2014 08:21-0400 Respiratory rate 16 /min Nga Long LPN [facility]; [facility] Work Phone: 03-05-2014 08:21-0400 SaO2% (BldA) [Mass fraction] 97 % Nga Ethan ELDER [facility]; [facility] Work Phone: Comment on above: Room air 03-05-2014 08:210400 Systolic blood pressure 118 mm[Hg] Nga Ethan JAEL [facility]; [facility] Work Phone: Comment on above: Patient Position: Sitting; Cuff Location : Left Arm; Cuff Size: Standard 06-15-2012 14:120400 Body height 170.18 cm Scar Chaudhari RN [facility]; [facility] Work Phone: 06-15-2012 14:120400 Body mass index (BMI) [Ratio] 27.13 kg/m2 Scar Chaudhari RN [facility]; [facility] Work Phone: 06-15-2012 14:12-0400 Body surface area Derived from formula 1.9 m2 Scar Chaudhari RN [facility]; [facility] Work Phone: 06-15-2012 14:12-0400 Body temperature 97.8 [degF] Scar Chaudhari RN [facility]; [facility] Work Phone: Comment on above: Method: Oral 06-15-2012 14:120400 Body weight 78.56 kg Scar Chaudhari RN [facility]; [facility] Work Phone: 06-15-2012 14:120400 Diastolic blood pressure 58 mm[Hg] Scar Chaudhari RN [facility]; [facility] Work Phone: Comment on above: Patient Position: Sitting; Cuff Location : Left Arm; Cuff Size: Standard 06-15-2012 14:120400 Heart rate 72 /min Scar Chaudhari RN [facility]; [facility] Work Phone: Comment on above: Pattern: Regular 06-15-2012 14:12-0400 Respiratory rate 16 /min Scar Chaudhari RN [facility]; [facility] Work Phone: Comment on above: Pattern: Unlabored 06-15-2012 14:12-0400 Systolic blood pressure 102 mm[Hg] Scar Chaudhari RN [facility]; [facility] Work Phone: Comment on above: Patient Position: Sitting; Cuff Location : Left Arm; Cuff Size: Standard 10-13-2011 07:54-0500 Body height 170.18 cm DOC Cardona LPN [facility]; [facility] Work Phone: 10-13-2011 07:54-0500 Body mass index (BMI) [Ratio] 25.06 kg/m2 DOC Cardona LPN [facility]; [facility] Work Phone: 10-13-2011 07:54-0500 Body surface area Derived from formula 1.84 m2 [id number] Cardona LPN [facility]; [facility] Work Phone: 10-13-2011 07:54-0500 Body temperature 97.6 [degF] DOC Cardona LPN [facility]; [facility] Work Phone: Comment on above: Method: Oral 10-13-2011 07:54-0500 Body weight 72.58 kg DOC Cardona LPN [facility]; [facility] Work Phone: 10-13-2011 07:54-0500 Diastolic blood pressure 68 mm[Hg] DOC Brendan ELDER [facility]; [facility] Work Phone: Comment on above: Patient Position: Sitting; Cuff Location : Left Arm; Cuff Size: Standard 10-13-2011 07:54-0500 Heart rate 68 /min DOC Cardona LPN [facility]; [facility] Work Phone: Comment on above: Pattern: Regular 10-13-2011 07:54-0500 Respiratory rate 18 /min DOC Cardona LPN [facility]; [facility] Work Phone: Comment on above: Pattern: Unlabored 10-13-2011 07:54-0500 Systolic blood pressure 114 mm[Hg] [id number] Cardona LPN [facility]; [facility] Work Phone: Comment on above: Patient Position: Sitting; Cuff Location : Left Arm; Cuff Size: Standard 08-25-2011 12:40-0400 Body height 170.18 cm Tia Benito RN [facility]; [facility] Work Phone: 08-25-2011 12:40-0400 Body mass index (BMI) [Ratio] 25.06 kg/m2 Tia Benito RN [facility]; [facility] Work Phone: 08-25-2011 12:40-0400 Body surface area Derived from formula 1.84 m2 Tia Benito RN [facility]; [facility] Work Phone: 08-25-2011 12:40-0400 Body temperature 98.5 [degF] Tia Benito RN [facility]; [facility] Work Phone: Comment on above: Method: Oral 08-25-2011 12:40-0400 Body weight 72.58 kg Tia Benito RN [facility]; [facility] Work Phone: 08-25-2011 12:40-0400 Diastolic blood pressure 62 mm[Hg] Tia Benito RN [facility]; [facility] Work Phone: Comment on above: Patient Position: Sitting; Cuff Location : Left Arm; Cuff Size: Standard 08-25-2011 12:40-0400 Heart rate 64 /min Tia Benito RN [facility]; [facility] Work Phone: Comment on above: Pattern: Regular 08-25-2011 12:40-0400 Respiratory rate 20 /min Tia Benito RN [facility]; [facility] Work Phone: Comment on above: Pattern: Unlabored 08-25-2011 12:40-0400 Systolic blood pressure 120 mm[Hg] Tia Benito RN [facility]; [facility] Work Phone: Comment on above: Patient Position: Sitting; Cuff Location : Left Arm; Cuff Size: Standard 08-09-2011 13:00-0400 Body height 167.64 cm Scar Chaudhari RN [facility]; [facility] Work Phone: 08-09-2011 13:00-0400 Body mass index (BMI) [Ratio] 28.57 kg/m2 Scar Chaudhari RN [facility]; [facility] Work Phone: 08-09-2011 13:00-0400 Body surface area Derived from formula 1.9 m2 Scar Chaudhari RN [facility]; [facility] Work Phone: 08-09-2011 13:00-0400 Body temperature 98.5 [degF] Scar Chaudhari RN [facility]; [facility] Work Phone: Comment on above: Method: Oral 08-09-2011 13:00-0400 Body weight 80.29 kg Scar Chaudhari RN [facility]; [facility] Work Phone: 08-09-2011 13:00-0400 Diastolic blood pressure 76 mm[Hg] Scar Chaudhari RN [facility]; [facility] Work Phone: Comment on above: Patient Position: Sitting; Cuff Location : Left Arm; Cuff Size: Standard 08-09-2011 13:00-0400 Heart rate 78 /min Scar Chaudhari RN [facility]; [facility] Work Phone: Comment on above: Pattern: Regular 08-09-2011 13:00-0400 Respiratory rate 16 /min Scar Chaudhari RN [facility]; [facility] Work Phone: Comment on above: Pattern: Unlabored 08-09-2011 13:00-0400 Systolic blood pressure 124 mm[Hg] Scar Chaudhari RN [facility]; [facility] Work Phone: Comment on above: Patient Position: Sitting; Cuff Location : Left Arm; Cuff Size: Standard 02-25-2011 07:140400 Body height 167.64 cm DOC Cardona LPN [facility]; [facility] Work Phone: 02-25-2011 07:14-0400 Body mass index (BMI) [Ratio] 28.57 kg/m2 DOC Cardona LPN [facility]; [facility] Work Phone: 02-25-2011 07:14-0400 Body surface area Derived from formula 1.9 m2 DOC Cardona LPN [facility]; [facility] Work Phone: 02-25-2011 07:14-0400 Body temperature 97.6 [degF] DOC Cardona COMPARATIVE SOCIOLOGY PROFESSOR [facility]; [facility] Work Phone: Comment on above: Method: Oral 02-25-2011 07:140400 Body weight 80.29 kg DOC Cardona COMPARATIVE SOCIOLOGY PROFESSOR [facility]; [facility] Work Phone: 02-25-2011 07:14-0400 Diastolic blood pressure 74 mm[Hg] DOC Cardona COMPARATIVE SOCIOLOGY PROFESSOR [facility]; [facility] Work Phone: Comment on above: Patient Position: Sitting; Cuff Location : Left Arm; Cuff Size: Standard 02-25-2011 07:140400 Heart rate 70 /min DOC Cardona JAEL [facility]; [facility] Work Phone: Comment on above: Pattern: Regular 02-25-2011 07:14-0400 Respiratory rate 18 /min DOC Cardona JAEL [facility]; [facility] Work Phone: Comment on above: Pattern: Unlabored 02-25-2011 07:14-0400 Systolic blood pressure 118 mm[Hg] DOC Cardona COMPARATIVE SOCIOLOGY PROFESSOR [facility]; [facility] Work Phone: Comment on above: Patient Position: Sitting; Cuff Location : Left Arm; Cuff Size: Standard 12-17-2010 13:24-0500 Body height 167.64 cm Nga Aquinomerry ELDER [facility]; [facility] Work Phone: 12-17-2010 13:24-0500 Body mass index (BMI) [Ratio] 28.6 kg/m2 Nga Ethan ELDER [facility]; [facility] Work Phone: 12-17-2010 13:24-0500 Body surface area Derived from formula 1.9 m2 Nga Long LPN [facility]; [facility] Work Phone: 12-17-2010 13:24-0500 Body temperature 97.8 [degF] Nga Ethan ELDER [facility]; [facility] Work Phone: Comment on above: Method: Oral 12-17-2010 13:24-0500 Body weight 80.38 kg Nga Long JAEL [facility]; [facility] Work Phone: 12-17-2010 13:24-0500 Diastolic blood pressure 72 mm[Hg] Nga Long JAEL [facility]; [facility] Work Phone: Comment on above: Patient Position: Sitting; Cuff Location : Left Arm; Cuff Size: Standard 12-17-2010 13:24-0500 Heart rate 72 /min Nga Long JAEL [facility]; [facility] Work Phone: Comment on above: Pattern: Regular 12-17-2010 13:24-0500 Respiratory rate 16 /min Nga Long JAEL [facility]; [facility] Work Phone: Comment on above: Pattern: Unlabored 12-17-2010 13:24-0500 Systolic blood pressure 124 mm[Hg] Nga Long JAEL [facility]; [facility] Work Phone: Comment on above: Patient Position: Sitting; Cuff Location : Left Arm; Cuff Size: Standard 08-20-2010 09:43-0400 Body height 167.64 cm cSar Chaudhari RN [facility]; [facility] Work Phone: 08-20-2010 09:43-0400 Body mass index (BMI) [Ratio] 28.6 kg/m2 Scar Chaudhari RN [facility]; [facility] Work Phone: 08-20-2010 09:43-0400 Body surface area Derived from formula 1.9 m2 Scar Chaudhari RN [facility]; [facility] Work Phone: 08-20-2010 09:43-0400 Body temperature 98.2 [degF] Scar Chaudhari RN [facility]; [facility] Work Phone: Comment on above: Method: Oral 08-20-2010 09:43-0400 Body weight 80.38 kg Scar Chaudhari RN [facility]; [facility] Work Phone: 08-20-2010 09:43-0400 Diastolic blood pressure 66 mm[Hg] Scar L Long RN [facility]; [facility] Work Phone: Comment on above: Patient Position: Sitting; Cuff Location : Left Arm; Cuff Size: Standard 08-20-2010 09:43-0400 Heart rate 68 /min Scar Chaudhari RN [facility]; [facility] Work Phone: Comment on above: Pattern: Regular 08-20-2010 09:43-0400 Respiratory rate 16 /min Scar Chaudhari RN [facility]; [facility] Work Phone: Comment on above: Pattern: Unlabored 08-20-2010 09:43-0400 Systolic blood pressure 118 mm[Hg] Scar Chaudhari RN [facility]; [facility] Work Phone: Comment on above: Patient Position: Sitting; Cuff Location : Left Arm; Cuff Size: Standard 03-24-2009 11:10-0400 Body height 0 cm DOC Cardona LPN [facility]; [facility] Work Phone: 03-24-2009 11:10-0400 Body weight 0 kg DOC Cardona LPN [facility]; [facility] Work Phone: 03-24-2009 11:10-0400 Diastolic blood pressure 68 mm[Hg] DOC Cardona LPN [facility]; [facility] Work Phone: Comment on above: Patient Position: Sitting; Cuff Location : Left Arm; Cuff Size: Standard 03-24-2009 11:10-0400 Head Occipital-frontal circumference 0 cm DOC Cardona LPN [facility]; [facility] Work Phone: 03-24-2009 11:10-0400 Heart rate 70 /min DOC Cardona LPN [facility]; [facility] Work Phone: Comment on above: Pattern: Regular 03-24-2009 11:10-0400 Respiratory rate 16 /min DOC Cardona LPN [facility]; [facility] Work Phone: Comment on above: Pattern: Unlabored 03-24-2009 11:10-0400 Systolic blood pressure 94 mm[Hg] DOC Cardoan LPN [facility]; [facility] Work Phone: Comment on above: Patient Position: Sitting; Cuff Location : Left Arm; Cuff Size: Standard 11-17-2008 12:23-0500 Body height 0 cm Leana Samsontiffanyjeff [facility]; [facility] Work Phone: 11-17-2008 12:23-0500 Body temperature 97.8 [degF] Leana Samsonemilie [facility]; [facility] Work Phone: Comment on above: Method: Undefined 11-17-2008 12:23-0500 Body weight 0 kg Leana Herman [facility]; [facility] Work Phone: 11-17-2008 12:23-0500 Diastolic blood pressure 72 mm[Hg] Leana Samsontiffanyjeff [facility]; [facility] Work Phone: Comment on above: Patient Position: Sitting; Cuff Location : Left Arm; Cuff Size: Large 11-17-2008 12:23-0500 Head Occipital-frontal circumference 0 cm Leana Samsonemilie [facility]; [facility] Work Phone: 11-17-2008 12:23-0500 Heart rate 80 /min Leana Samsonemilie [facility]; [facility] Work Phone: Comment on above: Pattern: Regular 11-17-2008 12:23-0500 Respiratory rate 16 /min Leana Schraderjeff [facility]; [facility] Work Phone: Comment on above: Pattern: Undefined 11-17-2008 12:23-0500 Systolic blood pressure 98 mm[Hg] Leana Samsonemilie [facility]; [facility] Work Phone: Comment on above: Patient Position: Sitting; Cuff Location : Left Arm; Cuff Size: Large 09-01-2008 10:25-0500 Body height 0 cm DOC Cardona LPN [facility]; [facility] Work Phone: 09-01-2008 10:25-0500 Body temperature 98.9 [degF] DOC Cardona LPN [facility]; [facility] Work Phone: Comment on above: Method: Oral 09-01-2008 10:25-0500 Body weight 0 kg DOC Cardona COMPARATIVE SOCIOLOGY PROFESSOR [facility]; [facility] Work Phone: 09-01-2008 10:25-0500 Diastolic blood pressure 74 mm[Hg] DOC Cardona COMPARATIVE SOCIOLOGY PROFESSOR [facility]; [facility] Work Phone: Comment on above: Patient Position: Sitting; Cuff Location : Left Arm; Cuff Size: Standard 09-01-2008 10:25-0500 Head Occipital-frontal circumference 0 cm DOC Cardona JAEL [facility]; [facility] Work Phone: 09-01-2008 10:25-0500 Heart rate 74 /min DOC Cardona COMPARATIVE SOCIOLOGY PROFESSOR [facility]; [facility] Work Phone: Comment on above: Pattern: Regular 09-01-2008 10:25-0500 Respiratory rate 16 /min DOC Cardona COMPARATIVE SOCIOLOGY PROFESSOR [facility]; [facility] Work Phone: Comment on above: Pattern: Unlabored 09-01-2008 10:25-0500 Systolic blood pressure 122 mm[Hg] DOC Cardona COMPARATIVE SOCIOLOGY PROFESSOR [facility]; [facility] Work Phone: Comment on above: Patient Position: Sitting; Cuff Location : Left Arm; Cuff Size: Standard 08-26-2008 09:02-0400 Body height 0 cm DOC Cardona COMPARATIVE SOCIOLOGY PROFESSOR [facility]; [facility] Work Phone: 08-26-2008 09:02-0400 Body temperature 97.8 [degF] DOC Cardona JAEL [facility]; [facility] Work Phone: Comment on above: Method: Oral 08-26-2008 09:02-0400 Body weight 77.11 kg DOC Cardona COMPARATIVE SOCIOLOGY PROFESSOR [facility]; [facility] Work Phone: 08-26-2008 09:02-0400 Diastolic blood pressure 78 mm[Hg] DOC Cardona COMPARATIVE SOCIOLOGY PROFESSOR [facility]; [facility] Work Phone: Comment on above: Patient Position: Sitting; Cuff Location : Left Arm; Cuff Size: Standard 08-26-2008 09:02-0400 Head Occipital-frontal circumference 0 cm DOC Cardona LPN [facility]; [facility] Work Phone: 08-26-2008 09:02-0400 Heart rate 70 /min DOC Cardona LPN [facility]; [facility] Work Phone: Comment on above: Pattern: Regular 08-26-2008 09:02-0400 Respiratory rate 16 /min DOC Cardona LPN [facility]; [facility] Work Phone: Comment on above: Pattern: Unlabored 08-26-2008 09:02-0400 Systolic blood pressure 122 mm[Hg] DOC Cardona LPN [facility]; [facility] Work Phone: Comment on above: Patient Position: Sitting; Cuff Location : Left Arm; Cuff Size: Standard 10-11-2007 11:50-0500 Body height 0 cm DOC Cardona LPN [facility]; [facility] Work Phone: 10-11-2007 11:50-0500 Body temperature 98.6 [degF] DOC Cardona LPN [facility]; [facility] Work Phone: Comment on above: Method: Oral 10-11-2007 11:50-0500 Body weight 0 kg DOC Cardona LPN [facility]; [facility] Work Phone: 10-11-2007 11:50-0500 Diastolic blood pressure 74 mm[Hg] DOC Cardona LPN [facility]; [facility] Work Phone: Comment on above: Patient Position: Sitting; Cuff Location : Left Arm; Cuff Size: Standard 10-11-2007 11:50-0500 Head Occipital-frontal circumference 0 cm DOC Cardona LPN [facility]; [facility] Work Phone: 10-11-2007 11:50-0500 Heart rate 70 /min DOC Cardona LPN [facility]; [facility] Work Phone: Comment on above: Pattern: Regular 10-11-2007 11:50-0500 Respiratory rate 18 /min DOC Cardona LPN [facility]; [facility] Work Phone: Comment on above: Pattern: Unlabored 10-11-2007 11:50-0500 Systolic blood pressure 114 mm[Hg] DOC Cardona LPN [facility]; [facility] Work Phone: Comment on above: Patient Position: Sitting; Cuff Location : Left Arm; Cuff Size: Standard 08-23-2007 12:16-0400 Body height 0 cm DOC Cardona COMPARATIVE SOCIOLOGY PROFESSOR [facility]; [facility] Work Phone: 08-23-2007 12:16-0400 Body temperature 98.6 [degF] DOC Cardona COMPARATIVE SOCIOLOGY PROFESSOR [facility]; [facility] Work Phone: Comment on above: Method: Oral 08-23-2007 12:16-0400 Body weight 77.11 kg DOC Cardona COMPARATIVE SOCIOLOGY PROFESSOR [facility]; [facility] Work Phone: 08-23-2007 12:16-0400 Diastolic blood pressure 80 mm[Hg] DOC Cardona COMPARATIVE SOCIOLOGY PROFESSOR [facility]; [facility] Work Phone: Comment on above: Patient Position: Sitting; Cuff Location : Left Arm; Cuff Size: Standard 08-23-2007 12:16-0400 Head Occipital-frontal circumference 0 cm DOC Cardona COMPARATIVE SOCIOLOGY PROFESSOR [facility]; [facility] Work Phone: 08-23-2007 12:16-0400 Heart rate 70 /min DOC Cardona COMPARATIVE SOCIOLOGY PROFESSOR [facility]; [facility] Work Phone: Comment on above: Pattern: Regular 08-23-2007 12:16-0400 Respiratory rate 20 /min DOC Cardona COMPARATIVE SOCIOLOGY PROFESSOR [facility]; [facility] Work Phone: Comment on above: Pattern: Unlabored 08-23-2007 12:16-0400 Systolic blood pressure 116 mm[Hg] DOC Cardona COMPARATIVE SOCIOLOGY PROFESSOR [facility]; [facility] Work Phone: Comment on above: Patient Position: Sitting; Cuff Location : Left Arm; Cuff Size: Standard 12-14-2006 11:35-0500 Body height 0 cm DOC Cardona JAEL [facility]; [facility] Work Phone: 12-14-2006 11:35-0500 Body temperature 97.6 [degF] DOC Cardona JAEL [facility]; [facility] Work Phone: Comment on above: Method: Oral 12-14-2006 11:35-0500 Body weight 74.39 kg DOC Cardona JAEL [facility]; [facility] Work Phone: 12-14-2006 11:35-0500 Diastolic blood pressure 78 mm[Hg] DOC Cardona JAEL [facility]; [facility] Work Phone: Comment on above: Patient Position: Sitting; Cuff Location : Left Arm; Cuff Size: Standard 12-14-2006 11:35-0500 Head Occipital-frontal circumference 0 cm DOC Cardona JAEL [facility]; [facility] Work Phone: 12-14-2006 11:35-0500 Heart rate 72 /min DOC Cardona JAEL [facility]; [facility] Work Phone: Comment on above: Pattern: Regular 12-14-2006 11:35-0500 Respiratory rate 20 /min DOC Cardona JAEL [facility]; [facility] Work Phone: Comment on above: Pattern: Unlabored 12-14-2006 11:35-0500 Systolic blood pressure 104 mm[Hg] DOC Cardona JAEL [facility]; [facility] Work Phone: Comment on above: Patient Position: Sitting; Cuff Location : Left Arm; Cuff Size: Standard 11-16-2006 11:14-0500 Body height 166.37 cm Tia Benito RN [facility]; [facility] Work Phone: 11-16-2006 11:14-0500 Body mass index (BMI) [Ratio] 26.88 kg/m2 Tia Benito RN [facility]; [facility] Work Phone: 11-16-2006 11:14-0500 Body surface area Derived from formula 1.83 m2 Tia Benito RN [facility]; [facility] Work Phone: 11-16-2006 11:14-0500 Body temperature 98.4 [degF] Tia Benito RN [facility]; [facility] Work Phone: Comment on above: Method: Oral 11-16-2006 11:14-0500 Body weight 74.39 kg Tia Benito RN [facility]; [facility] Work Phone: 11-16-2006 11:14-0500 Diastolic blood pressure 74 mm[Hg] Tia Benito RN [facility]; [facility] Work Phone: Comment on above: Patient Position: Sitting; Cuff Location : Left Arm; Cuff Size: Standard 11-16-2006 11:14-0500 Head Occipital-frontal circumference 0 cm Tia Benito RN [facility]; [facility] Work Phone: 11-16-2006 11:14-0500 Heart rate 68 /min Tia Benito RN [facility]; [facility] Work Phone: Comment on above: Pattern: Regular 11-16-2006 11:14-0500 Respiratory rate 16 /min Tia Benito RN [facility]; [facility] Work Phone: Comment on above: Pattern: Unlabored 11-16-2006 11:14-0500 Systolic blood pressure 120 mm[Hg] Tia Benito RN [facility]; [facility] Work Phone: Comment on above: Patient Position: Sitting; Cuff Location : Left Arm; Cuff Size: Standard Encounters Encounter Date Encounter Type Care Provider Facility Start: 08-14-[address] [facility] Facility:[facility] Start: 07-31-[address] [facility] Facility:[facility] Start: 06-09-[address] [facility] Facility:[facility] Start: 06-06-2025 Registered [facility] [place] Work Phone: Start: 06-06-2025 End: 06-06-[address] Berta Vargas MD Work Phone: -[facility] [place] Start: 06-06-2025 End: 06-06-[address] Berta Vargas MD -[facility] [place] Work Phone: Start: 06-06-2025 End: 06-06-2025 ambulatory Berta Vargas Facility:[facility] Start: 01-16-2025 End: 01-16-[address] Berta Vargas MD Work Phone: [facility] Work Phone: Start: 01-16-2025 End: 01-16-[address] Berta Vargas MD -Radiology, [place] Work Phone: Start: 01-16-2025 End: 01-16-2025 ambulatory Berta Vargas Facility:[facility] Start: 09-25-2024 End: 09-25-2024 Patient encounter procedure Rose Laird CNM -Outpatient Breast Imaging Work Phone: Start: 09-25-2024 End: 09-25-2024 ambulatory Rose Laird Facility:[facility] Start: 09-20-2024 Encounter for gynecological examination (general) (routine) without abnormal findings Rose Laird [facility] Start: 09-20-2024 End: 09-20-2024 ambulatory Rose Laird Facility[place] Start: 09-20-2024 End: 09-20-2024 ambulatory Rose Laird Facility:[facility] Start: 09-12-2024 End: 09-12-2024 ambulatory Catano Tee Facility:[facility] Start: 01-03-2024 End: 01-03-[address] Scar Apodaca Work Phone: [facility] Work Phone: Start: 01-03-2024 End: 01-03-[address] Scar Apodaca Work Phone: [facility]-Outpatient Bone Densitometry Work Phone: Start: 12-21-2023 End: 12-21-[address] Scar Apodaca Work Phone: [facility] Work Phone: Start: 12-21-2023 End: 12-21-[address] Scar Apodaca Work Phone: [facility]-Ultrasound, [facility] Work Phone: Start: 09-19-2023 End: 09-19-[address] Scar Apodaca Work Phone: [facility] Work Phone: Start: 09-07-2023 End: 09-07-[address] Scar Apodaca Work Phone: [facility] Work Phone: Start: 09-07-2023 End: 09-07-[address] Scar Apodaca Work Phone: [facility]-Physical Therapy Work Phone: Start: 08-08-2023 End: 08-08-2023 Office outpatient visit 15 minutes Berta Vargas MD Work Phone: [facility] Start: 08-07-2023 Non-patient / Non-visit Dr. Me radames Apodaca Work Phone: [facility] Start: 08-07-2023 End: 08-07-[address] Scar Apodaca Work Phone: [facility] Work Phone: Start: 08-07-2023 End: 08-07-[address] [facility] Start: 08-07-2023 End: 08-07-2023 Annotation/Addendum Berta Vargas MD Work Phone: [facility] Start: 08-03-2023 End: 08-04-2023 ambulatory RAVI DEY Facility:[facility] Start: 08-03-2023 End: 08-03-2023 Patient encounter procedure Nurse [facility] Comment on above: Encounter for immuni zation (Primary Dx) Start: 07-31-2023 End: 07-31-[address] Scar Apodaca Work Phone: [facility] Work Phone: Start: 07-31-[address] Scar Apodaca Work Phone: [facility] Start: 06-22-2023 End: 06-22-2023 ambulatory [facility] Work Phone: Start: 06-22-2023 End: 06-22-2023 Patient encounter procedure [facility]-Outpatient Breast Imaging Work Phone: Start: 01-16-2023 End: 01-16-[address] [facility] Start: 12-23-2022 Periodic preventive med est patient 40-64yrs Scar Apodaca Work Phone: [facility] Work Phone: Start: 12-23-[address] Scar Apodaca Facility:[id number] Start: 08-19-2022 AUDIT Scar Ly user Work Phone: [facility] Work Phone: Start: 08-18-2022 End: 08-18-2022 ambulatory [facility] Work Phone: Start: 08-18-2022 End: 08-18-2022 Patient encounter procedure [facility] Start: 08-12-2022 Chart Update Scar Ly user Work Phone: [facility] Work Phone: Start: 08-11-2022 Office outpatient ne w 30 minutes Scar Apodaca Work Phone: [facility] Work Phone: Start: 08-11-[address] Scar Apodaca Facility:[id number] Start: 08-04-2022 Office outpatient ne w 45 minutes Scar Apodaca Work Phone: [facility] Work Phone: Start: 08-04-2022 Patient encounter procedure Scar Apodaca Work Phone: [facility] Work Phone: Start: 08-04-[address] Scar Apodaca Facility:[id number] Start: 07-08-2022 Registered Referred [facility] Start: 07-08-2022 End: 07-08-2022 ambulatory [facility] Work Phone: Start: 07-08-2022 End: 07-08-2022 Patient encounter procedure [facility] Start: 04-25-2022 End: 04-25-2022 Emergency department patient visit Dione Eaton [facility] Start: 01-04-2022 End: 01-04-2022 Emergency department patient visit Scar Dixon [facility] 01 Start: 12-15-2021 Periodic preventive med est patient 40-64yrs Ravi Dey Work Phone: [facility] Work Phone: Start: 12-01-2021 Chart Update Ravi hurst Work Phone: -[facility] Work Phone: Start: 11-29-2021 ambulatory Ravi Dey Facility:[id number] Start: 11-29-2021 Chart Update Ravi hurst Work Phone: [facility] Work Phone: Start: 11-26-[address] Lindy Jasso cility:[id number] Start: 10-01-2021 End: 10-01-2021 Emergency department patient visit Mr. Ravi Sesay Facility:[id number] Start: 12-14-2020 Patient encounter procedure Ravi Dey [facility] [facility] Work Phone: Start: 11-13-2020 Patient encounter procedure Ravi Dey [facility] Work Phone: Start: 12-10-2019 Patient encounter procedure Ravi Dey [facility] Work Phone: Start: 11-13-2019 Patient encounter procedure Ravi Dey [facility] Work Phone: Start: 06-24-2014 End: 06-24-2014 Office outpatient visit 15 minutes Berta Vargas MD Work Phone: [facility] Start: 06-24-2014 End: 06-24-2014 Routine general medical examination at a health care facility Berta Vargas MD Work Phone: [facility] Work Phone: Comment on above: up to date tanya cash end of last year. Start: 06-02-2014 End: 06-02-2014 Phone Encounter Berta Vargas MD Work Phone: [facility] Start: 05-28-2014 End: 05-28-2014 Office outpatient visit 40 minutes Berta Vargas MD Work Phone: [facility] Start: 04-10-2014 End: 04-10-2014 Patient encounter procedure Berta Vargas MD Work Phone: [facility] Start: 03-20-2014 End: 03-20-2014 Patient encounter procedure DOC Cardona LPN [facility] Start: 03-10-2014 End: 03-10-2014 Office outpatient new 45 minutes Berta Vargas MD Work Phone: [facility] Start: 03-06-2014 End: 03-06-2014 Patient encounter procedure Berta Vargas MD Work Phone: [facility] Start: 03-05-2014 End: 03-05-2014 Office outpatient visit 25 minutes Berta Vargas MD Work Phone: [facility] Start: 06-15-2012 End: 06-15-2012 Office outpatient visit 15 minutes Berta Vargas MD Work Phone: [facility] Start: 06-15-2012 End: 06-15-2012 Patient encounter procedure Berta Vargas MD Work Phone: [facility] Start: 10-13-2011 End: 10-13-2011 Patient encounter procedure Berta Vargas MD Work Phone: [facility] Start: 08-25-2011 End: 08-25-2011 Patient encounter procedure Berta Vargas MD Work Phone: [facility] Start: 08-11-2011 End: 08-11-2011 Annotation/Addendum Berta Vargas MD Work Phone: [facility] Start: 08-09-2011 End: 08-09-2011 Phone Encounter Berta Vargas MD Work Phone: [facility] Start: 08-09-2011 End: 08-09-2011 Patient encounter procedure Berta Vargas MD Work Phone: [facility] Start: 02-25-2011 End: 02-25-2011 Patient encounter procedure Berta Vargas MD Work Phone: [facility] Start: 12-17-2010 End: 12-17-2010 Office outpatient visit 15 minutes Berta Vargas MD Work Phone: [facility] Start: 08-20-2010 End: 08-20-2010 Patient encounter procedure Berta Vargas MD Work Phone: [facility] Start: 08-20-2010 End: 08-20-2010 Routine general medical examination at a health care facility Berta Vargas MD Work Phone: [facility] Start: 05-06-2009 End: 05-06-2009 Historical Summary Berta Vargas MD Work Phone: [facility] Start: 03-24-2009 End: 03-24-2009 Patient encounter procedure Berta Vargas MD Work Phone: [facility] Start: 11-17-2008 End: 11-17-2008 Patient encounter procedure Berta Vargas MD Work Phone: [facility] Start: 09-01-2008 End: 09-01-2008 Patient encounter procedure Berta Vargas MD Work Phone: [facility] Start: 08-26-2008 End: 08-26-2008 Patient encounter procedure Berta Vargas MD Work Phone: [facility] Start: 10-11-2007 End: 10-11-2007 Patient encounter procedure Berta Vargas MD Work Phone: [facility] Start: 08-23-2007 End: 08-23-2007 Patient encounter procedure Berta Vargas MD Work Phone: [facility] Start: 12-14-2006 End: 12-14-2006 Patient encounter procedure Berta Vargas MD Work Phone: [facility] Start: 11-27-2006 End: 11-27-2006 Historical Summary Berta Vargas MD Work Phone: [facility] Start: 11-16-2006 End: 11-16-2006 Patient encounter procedure Berta Vargas MD Work Phone: [facility] Start: 11-16-2006 End: 11-16-2006 Routine general medical examination at a health care facility Berta Vargas MD Work Phone: [facility] Start: End: Patient encounter status Ravi Dey Work Phone: [employer] Work Phone: Female genitalia finding Ravi Dey Work Phone: [facility] Work Phone: Menarche Ravi pérez Work Phone: [facility] Work Phone: Comment on above: AGE 18; Ophthalmic examinati on and evaluation Scar Apodaca Work Phone: [facility] Work Phone: Patient encounter procedure Ravi Dey Work Phone: [facility] Work Phone: End: 12-23-2022 Patient encounter procedure Scar Apodaca Work Phone: [facility] Work Phone: Routine general medi gamal examination at a [place] healthcare care facility Abbey Flores [facility] Work Phone: Comment on above: up to date tanya cash end of last year. Procedures Date Procedure Procedure Detail Performing Clinician Start: 06-06-2025 Serum inorganic phosphate measurement Dr. Berta Vargas MD Work Phone: Start: 06-06-2025 Urnls dip stick/tabl et reagent auto microscopy Dr. Berta Vargas MD Work Phone: Start: 01-16-2025 X-ray of chest, PA a nd lateral views Dr. Berta Vargas MD Work Phone: Start: 09-25-2024 Screening mammography D yimi Vargas MD Work Phone: Start: 12-21-20[address] Ultrasound elastography of liver Dr. Scar Apodaca Work Phone: Start: 08-07-2023 End: 08-08-2023 Venous Duplex US, Unilateral Procedure Note: See Note; NOTES: [facility] [address] [place] [address] Venous Duplex US, Unilateral 08/07/23 1108 MR#: [id number] Acct: [id number] Name: MEKA CAMPOS Rep #: [id number] : 1965 57 From: Audie Alvarado MD [...] Physician: Berta Vargas Performed By: Derian Sawant, T 08/08/23 1150 Date Audie Alvarado MD CC: Dr. Berta Vargas MD; Dr. Scar Apodaca DO Date Dictated: 08/07/23 1108 Date Transcribed: 08/08/23 1150 Nicking Machine Operator: Signed Berta Vargas MD Work Phone: Start: 08-03-2023 INFLUENZA VACCINE, A GE 6 MO - 64 YR, QUADRIVALENT (AFLURIA, FLULAVAL, FLUZONE) Raj Reed MD Work Phone: Start: 08-01-2023 Lipid 1996 panel - Serum or Plasma Nurse Souris Start: 07-31-2023 Radiologic examinati on of knee Dr. Scar Apodaca Work Phone: Start: 06-22-2023 Screening mammography Start: 08-18-2022 CT of abdomen with contrast Start: 12-14-2020 Microscopic observation [Identifier] in Cervix by Cyto stain.thin prep Ravi Stencel Start: 06-24-2014 End: 06-24-2014 Spmtry w/vc expiratory federico w/wo mxml vol vntj _ Berta Vargas MD Work Phone: Comment on above: see scanned document of test done to see results reviewed today with patient Start: 05-30-2014 End: 05-30-2014 Stress Test Echo w/o Contrast Procedure Note: See Note; NOTES: [facility] [address] [place] [address] STRESS TEST REPORT 05/30/14 0910 MR#: [id number] Acct: [id number] Name: MEKA CAMPOS Rep #: [id number] : 1965 48 From: Andrey Kang MD Primary Care: Berta Vargas MD Status: REG CLI Ordering Dr: Debbie Phan DO Service Date: 05/30/14 Order Date: 05/30/14 Sex: F C Stress Results Protocol: Stress Echocardiogram Maximum Predicted HR: 174 bpm Target HR: 148 bpm % Maximum Predicted HR: 106 % Stage DurationHeart Rate BP (mm:ss) (bpm) BASELINE 71 112/74 ISIDRO PROTOCOL- STAGE 1 3:00 125 124/80 ISIDRO PROTOCOL- STAGE 2 3:00 153 128/84 ISIDRO PROTOCOL- STAGE3 2:23 184 134/84 RECOVERY 108 114/78 Stress Duration: 8:23 mm:ss Maximum Stress HR: 184 bpm Baseline Echocardiogram Findings The estimated ejection fraction is 65 %. Normal systolic function. Normal left atrium. Normal right atrium. Normal atrial septum. The mitral valve is structurally normal. No prolapse or stenosis seen. Normal tricuspid valve. Stress Echo Wall motion Data Resting WM Intermediate WM Stress WM Resting Wall Motion Wall Motion Stress No regional wall motion No regional wall motion abnormalities noted. abnormalities noted. EKG Data The baseline ECG displays normal sinus rhythm. The patient exercised according to the regular Isidro protocol for a total duration of 8:23. The maximum heart rate attained was 184 beats per minute. This was 105% of maximum predicted heart rate. The patient exercised into stage 3 of the Isidro protocol. At rest, there were no ST or T wave changes noted to suggest ischemia. No arrhythmias noted. Interpretation Summary The estimated ejection fraction is 65 %. Normal adequate treadmill echocardiogram. Negative for ischemia by ECG and echo criteria. Normal BP response to exercise. No arrhythmias noted. Average exercise capacity for age. Pt did develop sharp chest pain during exercise which quickly resolved into recovery. Recommend clinical correlation or alternative mode of testing if CAD is strongly suspected. ____ Ordering Physician: Debbie Phan Referring Physician: Debbie Phan D.O. Performed By: Sophie Bass, [facility] 1521 Date Andrey Kang MD CC: Berta Vargas MD; Debbie Phan DO Date Dictated: 05/30/14 0910 Date Transcribed: 05/30/14 152 Nicking Machine Operator: Signed Berta Vargas MD Work Phone: Start: 05-28-2014 End: 05-28-2014 Abdomen/Pelvis without Cont Procedure Note: See Note; NOTES: [facility] Imaging Services [address] [place] [address] CAT Scan Report MR#: [id number] Acct: [id number] Name: MEKA CAMPOS Rep #: [id number] : 1965 F 48 From: Hany Kaur MD PCP: Berta Vargas MD Status: REG CLI Study: Abdomen/Pelvis without Cont Date of Exam: 05/28/14 Exam# [id number] Ordering Dr: Debbie Phan DO STUDY: CT ABDOMEN AND PELVIS WITHOUT CONTRAST REASON FOR EXAM: Female, 48 years old. Right flank pain. RADIATION DOSAGE (If Supplied By Facility): CTDIvol = ( 15.64 ) mGy, DLP = ( 726.21 ) mGycm TECHNIQUE: Transaxial images were obtained from the dome of the diaphragm to the symphysis pubis without oral contrast, and without intravenous contrast. Sagittal and coronal images were reconstructed. COMPARISON: Comparison is made with prior study dated October 13, 2011. FINDINGS: The visualized lung bases are unremarkable. The visualized portions of the heart are within normal limits. Normal liver. Normal gallbladder and extrahepatic biliary system. Normal spleen. Normal pancreas. Normal bilateral adrenal glands. Normal right kidney. Normal left kidney. Normal visualized stomach. Normal small intestine. There are multiple colonic diverticula consistent with diverticulosis. The appendix is visualized and appears normal. Normal abdominal aorta. Normal inferior vena cava. Normal retroperitoneum. Normal urinary bladder. There is a dominant follicle measuring 1 cm in the left ovary. Normal abdominal wall. Normal osseous structures. IMPRESSION: Dominant follicle is seen in the left ovary. Electronically Signed: Hany Kaur MD at 14:57 EDT Tel [phone], Service support [phone], CC: Berta Vargas MD; Debbie Phan DO Nicking Machine Operator: Signed Debbie Phan DO Work Phone: Start: 05-28-2014 End: 05-28-2014 Chest PA and Lateral Procedure Note: See Note; NOTES: [facility] Imaging Services [address] [place] [address] Radiology Report MR#: [id number] Acct: [id number] Name: MEKA CAMPOS Rep #: [id number] : 1965 F 48 From: Rene Ramos MD PCP: Berta Vargas MD Status: REG CLI Study: Chest PA and Lateral Date of Exam: 05/28/14 Exam# [id number] Ordering Dr: Debbie Phan DO STUDY: X-RAY CHEST REASON FOR EXAM: Female, 48 years old. Dyspnea TECHNIQUE: PA and lateral views of the chest. COMPARISON: None. FINDINGS: Minimal streaky scarring or atelectasis in the left lung base. There is no demonstrated pleural abnormality. Normal size heart. Normal mediastinum and nereyda. Normal visualized pulmonary arteries. Normal visualized aortic arch and descending thoracic aorta. Normal visualized thoracic spine. Normal visualized ribs, clavicles, and shoulders. There is no demonstrated abnormality of the visualized soft tissue structures of the upper abdomen. IMPRESSION: Minimal left-sided scarring or atelectasis. Electronically Signed: Rene Ramos MD at 22:38 EDT , Service support [phone], CC: Berta Vargas MD; [employer] Nicking Machine Operator: Signed [employer] Work Phone: Start: 05-28-2014 End: 05-28-2014 Ecg routine ecg w/least 12 lds w/i&r [MEASUREMENTS ANALYSIS] Date of Test: 05/28/2014 10:56:15; Heart Rate: 72; CA Interval: 130; QRS: 84; QT Interval: 388; Corrected QT Interval (QTc): 409; P Wave [place]: 29; QRS Wave [place]: 11; T Wave [place]: -1; Blood Pressure: 126/72 [ECG DIAGNOSTIC STATEMENTS] Date of Test: 05/28/2014 10:56:15; Summary: Sinus Rhythm WITHIN NORMAL LIMITS [place] Phone: Comment on above: ekg showed normal si nus rhythym, normal axis, no acute st/t wave changes Start: 03-20-2014 End: 03-20-2014 Bilat Scrn Digital & CAD Procedure Note: See Note; NOTES: [facility] Imaging Services [address] [place] [address] [place] [address] Breast Imaging Report MR#: [id number] Acct: [id number] Name: MEKA CAMPOS Rep #: [id number] : 1965 F 48 From: Hany Kaur MD PCP: Enid Huber DO Status: REG [facility] Exam# [id number] Ordering Dr: Enid Huber DO MAMMOGRAPHY - BILATERAL SCREENING REASON FOR EXAM: Female, 48 years old. Routine annual screening examination. PERTINENT HISTORY: Aunt with breast cancer. TECHNIQUE: Digital examination. Mediolateral oblique (MLO) and craniocaudad (CC) views of both breasts were obtained. CAD: CAD was performed on this study. COMPARISON: Comparison is made with prior study dated September 05, 2011 and September 02, 2010. FINDINGS: The breast composition is heterogeneously dense - ranging from 51% to 75% of the breast tissue. There are no dominant masses or suspicious calcifications. No other significant abnormalities are identified. There has been no significant change since the prior study. IMPRESSION: Stable bilateral screening mammogram. Yearly follow-up recommended. (A) ASSESSMENT CATEGORY: BIRADS Category 2: Benign finding(s). A letter regarding these results will be sent to the patient by the facility within 30 days. Approximately 10% of breast cancers are not detected by mammography. A normal mammogram should not delay biopsy of a clinically suspicious abnormality. Electronically Signed: Hany Kaur MD at 13:03 EDT Tel [phone], Service support [phone], CC: Enid Huber DO Nicking Machine Operator: Signed Enid Huber DO Work Phone: section Ravi Weber H/O: section H/O: Dr. Scar Apodaca Work Phone: Operative procedure on uterus AND/OR cervix Ravi Dey Comment on above: leep procedure; Plan of Treatment Date Care Activity Detail Author Start: 08-01-2028 Lipid 1996 panel - Serum or Plasma Lipid Screening [facility] Start: 01-03-2024 Dual energy X-ray absorptiometry Dexa Bone Density Study [facility] Start: 07-31-2023 Patient referral [facility] Work Phone: Start: 12-16-2022 Patient encounter procedure [facility] Start: 11-29-2022 FUV, Provider: Scar Apodaca, Status: Pen, Time: 3:40 PM FUV, Provider: Scar Apodaca, Status: Pen, Time: 3:40 PM [facility] Work Phone: Start: 11-28-2022 Patient encounter procedure Outpatient [facility] Diagnostic [facility] [place] [address] Start: 28-Nov-2022 15:20 Lindy Carbajal Intent [facility] Start: 11-25-2022 EPV, Provider: Ravi Dey, Status: Pen, Time: 8:20 AM EPV, Provider: Ravi Dey, Status: Pen, Time: 8:20 AM [facility] Work Phone: Start: 11-25-2022 Patient encounter procedure Outpatient [facility] Start: 25-Nov-2022 8:20 Ravi Dey Intent [facility] Start: 10-30-2022 Depression Assessment Depression Ass essment [facility] Start: 08-11-2022 NPV, Provider: Diana Whalen, Status: Pen, Time: 8:30 AM NPV, Provider: Diana Whalen, Status: Pen, Time: 8:30 AM [facility] Work Phone: Start: 04-05-2022 Covid-19 Vaccine (5 - Moderna series) Covid-19 Vaccine (5 - Moderna series) [facility] Start: 12-15-2021 Patient encounter procedure ANNUAL, Provider: Lindy Carbajal, Status: Pen, Time: 9:[address] [facility] [address] Work Phone: Start: 2017 Shingrix Vaccine (1 of 2) Shingrix Vaccine (1 of 2) [facility] Start: 06-24-2014 Procedure Education Eprescribe d prescriptions (G8553) [facility]; [facility] Work Phone: Start: 06-02-2014 Culture bacterial quanttative colony count urine URINE DAVIS CULTURE-CHONG COL COUNT (67501) [facility]; [facility] Work Phone: Start: 05-28-2014 Procedure Education Eprescribe d prescriptions (G8553) [facility]; [facility] Work Phone: Start: 05-28-2014 Assay of troponin quantitative ASSAY, TROPONIN, QUANTITATIVE (aka Troponin I) (97793) [facility]; [facility] Work Phone: Comment on above: stat Start: 05-28-2014 Assay of thyroid stimulating hormone tsh TSH (35186) [facility]; [facility] Work Phone: Start: 05-28-2014 Fibrin dgradj produc ts d-dimer quantitative D-Dimer (30773) [facility]; [facility] Work Phone: Comment on above: stat Start: 04-10-2014 Lipid panel Lipid Panel (26517) [facility]; [facility] Work Phone: Comment on above: fasting Start: 04-10-2014 Glucose quantitative blood xcpt reagent strip Glucose (93135) [facility]; [facility] Work Phone: Start: 03-20-2014 Blood count complete auto&auto difrntl wbc CBC, Platelets & Auto Diff (14298) [facility]; [facility] Work Phone: Start: 03-10-2014 Provider Instruction s for Treatment [facility]; [facility] Work Phone: Start: 03-10-2014 Ova&parasites direct smears concentration & id OVA & PARASITE DIR SMEAR (63098) [facility]; [facility] Work Phone: Start: 03-07-2014 Antibody herpes smpl x non-specific type test HERPES SIMPLEX ANTIBODY (49894) [facility]; [facility] Work Phone: Start: 03-07-2014 Allergen spec ige qu al multiallergen screen ALLERGEN SPECIFIC IGE, QUALITATIVE (68425) [facility] Work [facility]: Start: 03-07-2014 Antinuclear antibodi es олег ОЛЕГ (ANTINUCLEAR ANTIBODY) (70994) [facility] Work Phone: Start: 03-07-2014 Sedimentation rate r bc non-automated SED RATE ERYTHROCYTE (26593) [facility] Work Phone: Start: 03-07-2014 C-reactive protein C-REACTIVE PROTEIN (77159) [facility] Work Phone: Start: 03-07-2014 Blood count manual c ell count each CBC WITH MANUAL DIFF (72516) [facility] Work Phone: Start: 03-05-2014 Provider Instruction s for Treatment Follow up if no improvement or if symptoms worsen [facility]; [facility] Work Phone: Start: 03-05-2014 Antibody borrelia burgdorferi lyme disease Lyme Disease Antibody W/ Reflex (21646) [facility]; [facility] Work Phone: Start: 03-05-2014 Antibody babita-bar r eb virus early antigen ea EBV Panel (35651) [facility]; [facility] Work Phone: Start: 03-05-2014 Assay of thyroid stimulating hormone tsh TSH (53765) [facility]; [facility] Work Phone: Start: 03-05-2014 Sedimentation rate r bc non-automated Sed Rate Erythrocyte (08087) [facility]; [facility] Work Phone: Start: 03-05-2014 Blood count complete auto&auto difrntl wbc CBC, Platelets & Auto Diff (64059) [facility]; [facility] Work Phone: Start: 03-05-2014 Comprehensive metabo lic panel Metabolic Panel, Comprehensive (06040) [facility]; [facility] Work Phone: Start: 2012 Cologuard (FIT-DNA) Cologuard (FIT-D NA) [facility] Start: 2012 Colonoscopy Colonoscopy [facility] Start: 2012 Colorectal Cancer Screening Colorectal Cancer Screening [facility] Start: [address] [facility] Start: 2012 Diabetes Screening Diabetes Screenin g [facility] Start: 2012 Fecal Occult Blood Fecal Occult Bloo d [facility] Start: 2012 SIGMOIDOSCOPY SIGMOIDOSCOPY [facility] Start: 06-15-2012 Iadna trichomonas vaginalis direct probe tq INFCT ANTGN TRICH VAGIN DIRECT PRB (46099) [facility]; [facility] Work Phone: Start: 06-15-2012 Iadna liana specie s direct probe tq LIANA, NUCLEIC ACID DIRECT PROBE (61137) [facility]; [facility] Work Phone: Start: 06-15-2012 Cytp c/v auto thin l yr prepj scr mnl rescr phys thin prep (61742) (std testing) [facility]; [facility] Work Phone: Start: 06-15-2012 Hpv, dna, amp probe HUMAN SKYLA LVS, NUCLEIC ACID AMPL PROBE (85789) [facility]; [facility] Work Phone: Start: 06-15-2012 Iadna chlamydia trachomatis amplified probe tq CHLAMYDIA (22219) (thin prep obtained) [facility]; [facility] Work Phone: Start: 06-15-2012 Iadna neisseria gonorrhoeae amplified probe tq NEISSERIA (59636) (THIN PREP OBTAINED) [facility]; [facility] Work Phone: Start: 06-15-2012 Blood occult fecal h gb deter ia qual feces 1-3 FECAL OCCULT HGB ASSAY- tubes sent home (93106) [facility]; [facility] Work Phone: Start: 06-15-2012 Provider Instruction s for Treatment [facility]; [facility] Work Phone: Start: 08-09-2011 Blood count complete auto&auto difrntl wbc CBC, Platelets & Auto Diff (15956) [facility]; [facility] Work Phone: Start: 08-09-2011 Comprehensive metabo lic panel Metabolic Panel, Comprehensive (49213) [facility]; [facility] Work Phone: Start: 08-09-2011 Iadna trichomonas vaginalis direct probe tq INFCT ANTGN TRICH VAGIN DIRECT PRB (54383) [facility]; [facility] Work Phone: Start: 08-09-2011 Iadna liana specie s direct probe tq LIANA, NUCLEIC ACID DIRECT PROBE (47407) [facility]; [facility] Work Phone: Start: 02-25-2011 Provider Instruction s for Treatment Shave Biopsy with Epi [facility]; [facility] Work Phone: Start: 08-26-2008 Provider Instruction s for Treatment [facility]; [facility] Work Phone: Start: 05-23-2008 Pap Testing Pap Testing [facility] Start: 10-11-2007 Provider Instruction s for Treatment [facility]; [facility] Work Phone: Start: 08-23-2007 Provider Instruction s for Treatment [facility] Work Phone: Start: 2007 Mammography Mammogram Screening [facility] Start: 12-14-2006 Provider Instruction s for Treatment [facility] Work Phone: Start: 1997 HPV Testing HPV Testing [facility] Start: 1986 Urine microalbumin profile DTaP,Tdap,Td Vaccine (1 - Tdap) [facility] Start: 1985 Hepatitis C Screening Hepatitis C Sc reening [facility] Start: 1967 Hepatitis B Vaccine (1 of 3 - 3-dose series) Hepatitis B Vaccine (1 of 3 - 3-dose series) [facility] H/O: section History of section [facility] Patient referral [facility] Work Phone: [facility] Work Phone: [facility] Work Phone: [facility] Work Phone: [facility] Work Phone: [facility] Work Phone: [facility] Work Phone: [facility] Work Phone: [facility] Work Phone: [facility] Work Phone: [facility] Work Phone: [facility] Work Phone: [facility] Work Phone: [facility] Work Phone: NEGATED: Highlighted row has been ruled out! Planned Goals not documented [facility] Work Phone: Immunizations Immunization Date Immunization Notes Care Provider Louisa dial 08-03-2023 influenza, injectabl e, quadrivalent, contains preservative Nurse Manuela [facility] Work Phone: 07-29-2022 Influenza, injectabl e, Madin Shalonda Canine Kidney, preservative free, quadrivalent Scar Apodaca Work Phone: [facility] Work Phone: 02-08-2022 Comirnaty 30 MCG/0.3 ML Intramuscular Suspension Scar Apodaca Work Phone: [facility] Work Phone: 09-17-2021 Pfizer-BioNTech COVID-19 Vacc 30 MCG/0.3ML Intramuscular Suspension Ravi Dey Work Phone: [address] Work Phone: 07-29-2021 influenza, injectabl e, quadrivalent, contains preservative Ravi D Stencel Work Phone: [facility] 12-02-2020 Moderna COVID-19 Vaccine 100 MCG/0.5ML Intramuscular Suspension Ravi D Stencel Work Phone: [facility] 11-04-2020 Moderna COVID-19 Vaccine 100 MCG/0.5ML Intramuscular Suspension Ravi D Stencel Work Phone: [facility] 07-31-2020 influenza, injectabl e, quadrivalent, contains preservative Nurse [facility] Work Phone: 07-31-2020 influenza, seasonal, injectable Ravi D Stencel Work Phone: [place] [address] [place] Work Phone: Comment on above: Series: 07-31-2020 influenza, seasonal, injectable Ravi Stencel [facility] Work Phone: 08-23-2019 Influenza, injectabl e, Madin Foster Canine Kidney, quadrivalent with preservative Ravi D Stencel Work Phone: [place] [address] [facility] Work Phone: 08-13-2018 influenza, injectabl e, quadrivalent, preservative free Dr. Scar Apodaca Work Phone: [facility] 08-13-2018 influenza, seasonal, injectable [facility] 08-23-2017 influenza, injectabl e, quadrivalent, preservative free Dr. Scar Apodaca Work Phone: [facility] 08-23-2017 influenza, seasonal, injectable [facility] 07-28-2016 influenza, injectabl e, quadrivalent, preservative free Dr. Scar Apodaca Work Phone: [facility] 07-28-2016 influenza, seasonal, injectable [facility] 07-30-2015 influenza, injectabl e, quadrivalent, preservative free Dr. Scar Apodaca Work Phone: [facility] 07-30-2015 influenza, seasonal, injectable [facility] 07-24-2014 influenza, injectabl e, quadrivalent, preservative free Dr. Scar Apodaca Work Phone: [facility] 07-24-2014 influenza, seasonal, injectable [facility] 08-29-2013 Influenza virus vaccine [facility] 09-09-2009 novel [id number], preservative-free, injectable Ravi Dey Work Phone: [address] Work Phone: Payers Date Payer Category Payer Self-pay [id number] 2023 [facility] Health [facility] [employer] [id number] 2023-Present [phone] [address] [place] [address] PPO [id number] 2022 Unknown [id number] 2016 Unknown [id number] 1965 Unknown [id number] 2..1.393646.3.579.2.1 1967 Unknown [id number] 2..1.229129.3.579.2.1 1967 Unknown [id number] 2.840.1.040765.3.579.2.1 1967 Unknown [id number] 2.840.1.751639.3.579.2.1 1967 Unknown [id number] 2..1.226707.3.579.2.1 1967 Unknown [id number] 2.840.1.623576.3.579.2.1 1967 Unknown [id number] 2.16.840.1.355714.3.579.2.3 56 1967 Unknown [id number] 2.16.840.1.272664.3.579.2.3 56 1967 Unknown [id number] 2.16.840.1.222684.3.579.2.3 56 1967 Unknown [id number] 2.16.840.1.399556.3.579.2.1 244 Unknown Unknown [id number] Unknown [id number] 2.16.840.1.734664.3.579.2.4 62 Unknown [id number] 2.16.840.1.853037.3.579.2.4 62 Unknown [id number] 2.16.840.1.421170.3.579.2.4 62 Unknown [id number] 2.16.840.1.659449.3.579.2.4 62 Unknown [id number] 2.16.840.1.943220.3.579.2.4 62 Unknown [id number] 2.16.840.1.883793.3.579.2.4 62 Unknown [id number] 2.16.840.1.238886.3.579.2.4 62 Unknown [id number] 2.16.840.1.201114.3.579.2.4 62 Unknown [id number] 2.16.840.1.479017.3.579.2.4 62 Unknown [id number] 2.16.840.1.617088.3.579.2.4 62 Social History Date Type Detail Facility Assertion Unknown if ever smoked [facility] Work Phone: Start: 10-06-2020 End: 12-09-2020 Denies alcohol consumption Denies alcohol consumption [address] Work Phone: Comment on above: Occasional alcohol u se tea in am Full-time, [employer] , heterosexua l Start: 08-08-2013 End: 09-19-2023 Tobacco smoking consumption unknown [facility] Start: 1965 Sex Assigned At Female W [facility] Start: 09-19-2023 Tobacco smoking stat us NHIS Never smoked tobacco [facility] Work Phone: Start: 12-09-2020 Alcohol intake Current drinke r of alcohol (finding) [facility] Start: 10-06-2020 End: 12-09-2020 Tobacco use panel [facility] National Score (1-10 0), lower number is lower risk Not on file [facility] Start: 12-03-2010 Alcohol Comment social [facility] Start: 1965 Sex Assigned At Not on file [facility] Tobacco use: Tobacco use: [facility] Work Phone: Start: 01-23-2025 Sex Female (finding) [facility] Functional Status Date Assessment Result Facility NEGATED: Highlighted row Functional performance Functional status health issues are not documented [facility] Work Phone: Mental Status Date Assessment Result Facility NEGATED: Highlighted row Cognitive function [Interpretation] Cognitive status health issues are not documented [facility] Work Phone: Clinical Notes 06-20-2022 to 01-16-2025 Note Date & Type Note Facility 01-16-2025 Radiology Diagnostic study note [facility] Imaging Services [address] [place], [place] [address] Chest PA and Lateral MR#: [id number] Acct: [id number] Name: MEKA CAMPOS Rep #: [id number] : 1965 F 59 From: Denny Peters MD PCP: Dr. Berta Vargas MD Status: REG C VIRGIL Study:Chest PA and Lateral Date of Exam: 01/16/25 Exam# [id number] Ordering Dr: Berta Vargas MD EXAM: CHEST PA AND LATERAL CLINICAL HISTORY: Asthma. COMPARISON: None. TECHNIQUE: PA and lateral views of the chest obtained. FINDINGS: The cardiac silhouette is not enlarged. No pulmonary parenchymal consolidative opacities. No pneumothorax or significant pleural effusion. Mild thoracic spine degenerative changes are noted. No acute osseous abnormality is identified. RAD/Chest PA and Lateral IMPRESSION: No radiographic evidence of acute cardiopulmonary disease. Reading Location: [id number] CC: Dr. Berta Vargas MD ~ Nicking Machine Operator: Signed [facility] 09-07-2023 Discharge summary Note Date/Time September 07, 2023 4:37pm [facility] Physical Therapy [facility] [address] [place] [address] / REHABILITATION SERVICES DISCHARGE SUMMARY MR#: [id number] Acct: [id number] Name: MEKA CAMPOS Rep #: [id number] : 1965 58 From: Hany Mcdonough PT, ATC Referring Dr.: Dr. Berta Vargas MD Status: REG RCR Insurance: [facility] [employer]/[facility] SELF PAY INSURANCE Discharge Summary D/C summary: It has been my pleasure to treat MEKA CAMPOS referred by Dr. Berta Vargas MD, with the diagnosis of R Knee Pain for a total of 5 visit(s). Discharge Date: Please see the following information for a summary of their discharge status. Subjective Subjective: I only have pain when I walk a lot Pain Right Knee: Pain Intensity (Out of 10): 0 Overall Improvement % Improvement: 70 Objective Objective/Function: R knee pain ranges from 0-3/10 Pt is I with HEP R knee ROM 0-2-131 degrees R knee MMT: flex= 42, ext= 61 #F Rx goals achieved Goals Goal 1:: Pt. to demonstrate an increase of 9 points on her LEFS in order to reflect a MCID in order to return to prior level of function. Goal Progress: Goal Met Goal 2:: Pt. to demonstrate a R knee ROM from 0 - 130 in order to be of equal ROM to her contralateral knee at time of testing in order to aid in pain free ambulation and pain free stair navigation. Goal Progress: Goal Met Goal 3:: Pt. to demonstrate an increase of 20 #F with R knee extension in order to be of equal strength to contralateral knee in order to return to prior level of function. Goal Progress: Goal Met Goal 4:: Pt. to become I with HEP to aid in independence of self care and rehabilitation outside of therapy hours to promote return to prior level of function. Goal Progress: Goal Met Plan Plan: Discharge to [facility] D/C Information d/c sentence: If there are questions or concerns regarding this patient's physical therapy, please feel free to call me at [phone]. Thank you for the referral of thispatient. Sincerely, Hany Mcdonough, PT, ATC Balance/Gait/Functional tests Balance/Special Test Scores Lower Extremity Functional Score: 76 Improvement % Improvement: 70 <Electronically signed by Hany Mcdonough PT, ATC> 09/07/23 [id number] CC: Dr. Berta Vargas MD; Dr. Scar Apodaca, DO ~ [facility] Signed [facility] Work Phone: 1(419) 574-623508-22-2022 History of Present illness NarrativePatient is here today for evaluation of her [...] of the thumb. She describes it as a lilli occasional catching and occasional sharp pains. She denies any use of a brace ice or topical medications. There is swelling and has noticed a deformity recently. There is also loss of function.She denies any numbness or tingling. She does occasionally take 200 mg of ibuprofen as needed for pain.[facility] [address] Work Phone: Evaluation noteNo assessment information available [facility] Work Phone: Evaluation note* Diagnosis Encounter for immunization- Primary Need for other specified prophylactic vaccination against single bacterial disease documented [facility] this encounter [facility] Diagnosis Onset Date Resolution Status Right knee pain acute [facility] Work Phone: Evaluation note* Diagnosis Onset Date Resolution Status Vaginal dryness, menopausal acute Encounter for routine gynecological examination noneactive [facility] Work Phone: History of Present illness [id number] presents for annual exam. Patient safe at home denies abuse. Patient sexually active without concern. Patient using the estrogen cream with some benefit. Patient is a breast exams no lumps lumps masses. Patient's up-to-date on colonoscopy. Patient working on physical activity. Patient had discussion with her family over the holidays and found a lot of ovarian Cancer and would like to discuss.[address] Work Phone: History of Present illness [...] not drink, does not take any medications. [facility] Work Phone: History of Present illness Narrative* [...] weight and then will gain it back. [facility] Work Phone: History of Present illness Narrative* Patient is here today for annual wellness. 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 [facility] Work Phone: History of Present illness Narrative* Patient is here today for annual wellness. 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 [facility] Work Phone: History of Present illness Narrative* Patient is here today for annual wellness. 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 [facility] Work Phone: Instructions* Name Dates Details [...] Internal Medicine; [facility] Work Phone: reason for referral (narrative)No reason for referral information [facility] Work Phone: Family History No Family History Records Found Mother Name Dates Details No pertinent family [...] Dise ase Status:Active Sister 1 Comments:DM Status:Active Relationship Condition Age at Onset Recorded Date/T ozzy aunt Malignant neoplasm of breast Unknown grandfather Cardiac disease Unknown sister Type 2 diabetes mellitus Unknown History of multiple cerebrovascular accidents (CVAs) Unknown aunt Leukemia Unknown Chief Complaint PT IS HERE TODAY FOR HER ANNUAL EXAM. LAST PAP WAS 12/14/2020, COTEST NEG. HAS NO CONCERNS. DOES A SELF BREAST CHECK. MAMMOGRAM DONE ON 11/26/2021, NEEDS AN ORDER FOR NEXT YEAR. 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 OVEN OPERATOR/EST CARE, she would like to discuss her [...] by .57 y/o female presents for annual [id number] y/o female presents for annual [id number] y/o female presents for annual wellness Chief Complaint and Reason for Visit Chief Complaint EMPLOYEE LABS Chief Complaint EMPLOYEE LABS Abnormal levels of other serum enzymes Chief Complaint SCREENING Chief Complaint SCREENING ANNUAL EMPLOYEE LABS RIGHT KNEE PAIN/SWELLING/NO KNOWN INJURY Other specified soft tissue disorders Reason for Visit Right knee pain Chief Complaint SCREENING ANNUAL EMPLOYEE LABS RIGHT KNEE PAIN/SWELLING/NO KNOWN INJURY Other specified soft tissue disorders RT KN PAIN/RX HERE Reason for Visit Right knee pain Chief Complaint RT KN PAIN/RX HERE Annual (TRANSFERRER) ELEVATED LFT'S Reason for Visit Vaginal dryness, men opausal Encounter for routine gynecological examination Chief Complaint Annual (TRANSFERRER) ELEVATED LFT'S Asymptomatic menopausal state Reason for Visit Vaginal dryness, men opausal Encounter for routine gynecological examination Chief Complaint Admit Date SCREENING September 25, 2024 1:30pm CXR PA undefinedTundefined LAT December 10:37am Chief Complaint Admit Date EMPLOYEE LABS June 06, 2025 8:4 3am Summary Purpose Advance Directives No Advanced Directives [...] you with the consent of such client. Goals (unrecognized section and content) Goals may be documented in a n alternate sectionGoals may be documented in an alternate sectionGoals may be documented in an alternate sectionGoals may be documented in an alternate sectionGoals may be documented in an alternate sectionGoals may be documented in an alternate sectionGoals may be documented in an alternate sectionGoals may be documented in an alternate sectionGoals may be documented in an alternate section INFORMATION SOURCE (unrecogn ized section and content) DATE CREATED AUTHOR 09/13/2022 [facility] DATE CREATED AUTHOR AUTHOR'S ORGANIZ ATION 12/24/2022 [facility] DATE CREATED AUTHOR AUTHOR'S ORGANIZ ATION 12/24/2022 [facility] DATE CREATED AUTHOR AUTHOR'S ORGANIZ ATION 01/17/2023 [facility] DATE CREATED AUTHOR AUTHOR'S ORGANIZ ATION 08/07/[address] [facility] DATE CREATED AUTHOR AUTHOR'S ORGANIZ ATION 08/07/2025 [facility] Care Teams (unrecognized sec tion and content) Team Status: Active Member Role Status Dates Dr. Patsy Dinh , DO Family Provider Active Dr. Scar Apodaca , DO Primary Care Provider Active Team Status: Inactive Member Role Status Dates Dr. Scar Apodaca , DO Primary Care Marylou hartley, Attending Provider, Referring Provider Active Fuse Coiler Relationship Specialty Start Date End Date Ravi Dey MD [address] [place] [address] PCP - General Family Medicine 12/09/20 Team Status: Inactive Member Role Status Dates Dr. Scar Apodaca , DO Primary Care Provider, Refer ring Provider Active Xander TAYLOR PA Attending Provider Active Team Status: Active Member Role Status Dates Dr. Scar Apodaca DO Primary Care Provider Active Dr. Audie Alvarado MD Attending Provider Active Team Status: Inactive Member Role Status Dates Dr. Scar Apodaca DO Primary Care Provider Active Xander TAYLOR PA Attending Provider, Referring Pr ovider Active Team Status: Active Member Role Status Dates Dr. Scar Apodaca DO Primary Care Provider Active Health Risk Assessment Attending Provider, Referring P rovider Active Team Status: Inactive Member Role Status Dates Dr. Scar Apodaca DO Primary Care Provider Active Dr. Berta Vargas MD Attending Provider, Referring Pr ovider Active Team Status: Active Member Role Status Dates Dr. Scar Apodaca DO Primary Care Provider Active Dr. Audie Alvarado MD Attending Provider Active Dr. Berta Vargas MD Referring Provider Active Team Status: Active Member Role Status Dates Dr. Patsy Dinh DO Family Provider Active Dr. Berta Vargas MD Primary Care Provider Active Team Status: Inactive Member Role Status Dates Dr. Scar Apodaca DO Primary Care Provider, Refer ring Provider Active Rose Laird CNM Attending Provider Active Team Status: Inactive Member Role Status Dates Dr. Berta Vargas MD Primary Care Provi tirso, Attending Provider, Referring Provider Active Team Status: Inactive Member Role Status Dates Dr. Berta Vargas MD Primary Care Provider Active Start: September 25, 2024 End: September 25, 2024 Rose Laird CNM Attending Provider Active S tart: September 25, 2024 End: September 25, 2024 Rose Laird CNM Referring Provider Active S tart: September 25, 2024 End: September 25, 2024 Team Status: Inactive Member Role Status Dates Dr. Berta Vargas MD Primary Care Provider Active Start: January 16, 2025 End: January 16, 2025 Dr. Berta Vargas MD Attending Provider Active Start: January 16, 2025 End: January 16, 2025 Dr. Berta Vargas MD Referring Provider Active Start: January 16, 2025 End: January 16, 2025 Team Status: Active Member Role/Relationship Status Dates Dr. Patsy Dinh DO Family Provider Active Dr. Berta Vargas MD Primary Care Provider Active Team Status: Inactive Member Role/Relationship Status Dates Dr. Berta Vargas MD Primary Care Provider Active Start: June 06, 2025 End: June 06, 2025 Dr. Berta Vargas MD Attending Provider Active Start: June 06, 2025 End: June 06, 2025 Dr. Berta Vargas MD Referring Provider Active Start: June 06, 2025 End: June 06, 2025 Team Status: Active Member Role/Relationship Status Dates Dr. Berta Vargas MD Primary Care Provider Active Start: June 06, 2025 Health Risk Assessment Attending Provider Active Start: June 06, 2025 Health Risk Assessment Referring Provider Active Start: June 06, 2025 Source Comments (unrecognize d section and content) In the event this informatio n is protected by the Federal Confidentiality of Alcohol and Drug Abuse Patient Records regulations: The Federal rules restrict any use of the information to criminally investigate or prosecute any alcohol or drug abuse patient.[facility] Reason for Visit (unrecogniz ed section and content) Reason Comments flu vaccine FOR RECORDS PERTAINING TO PATIENTS WHO ARE [...] BE BASED ON THE PRIMARY CLINICAL RECORDS. [employer] provides no warranty or guarantee of the accuracy or completeness of information in this document.
--- NOTE | 2025-08-14 09:04 | CA.SCORE ---
Calcium Scoring Date of Study:: 08/14/25 Indications Indications: FH/HLD Coronary Calcium Scoring: High-resolution Computed Tomographic imaging of the chest was performed on [08/14/25 ], with particular attention paid to the coronary arteries. Images from the examination were analyzed for the presence and extent of coronary artery calcification , using coronary calcium quantification software. The patient tolerated the procedure well and there were no complications. The results of the coronary calcification analysis are provided below. Findings Coronary Artery Left Main (LM): 0 Left Anterior Descending (LAD): 0 Left Circumflex (LCX): 0 Right Coronary Artery (RCA): 0 Total Agatston Score: 0 Percentile Rankin Calcium Scoring Interpretation: Different methods to categorize the overall amount of coronary plaque. Overall amount CAC SIS Visual of coronary plaque P1 Mild -100 <2 1-2 vessels with mild amount of plaque P2 Moderate 101-300 3-4 1-2 vessels with moderate amount, 3 vessels with mild amount of plaque P3 Severe 301-999 5-7 3 vessels with moderate amount, 1 vessel with severe amount of plaque P4 Extensive >1000 >8 2-3 vessels with severe amount of plaque Conclusion: No atherosclerotic plaque
== END | disposition home or self-care (01) ==
LOC: CT 07:16
PROVIDERS: PCP Internal Medicine; Referring Provider Internal Medicine; Visit Provider Internal Medicine
DX: E78.5 Hyperlipidemia, unspecified (principal)
CPT/HCPCS: 75571; 76380